=== PATIENT | male | born 1960 | race American Indian/Alaskan Native ===

== ENCOUNTER 2016-08-24 03:59 | Emergency (ER) | payer MEDICAID ==
[2016-08-24 04:43] LABS: Hematocrit 38.8 % (35.5-45.6); Hemoglobin 12.8 gm/dl (11.8-15.2); Mean Corpuscular HGB Conc 33 % (32-34); Mean Corpuscular Hemoglobin 30 pg (28-32); Mean Corpuscular Volume 89 fl (84-94); Platelet Count 395 K/mm3 (140-440); Red Blood Count 4.34 M/mm3 (3.65-5.03); Red Cell Distribution Width 14.3 % (13.2-15.2); White Blood Count 15.5 K/mm3 (4.5-11.0)
[2016-08-24 04:59] LABS: Alanine Aminotransferase 7 units/L (7-56); Albumin 4.3 g/dL (3.9-5); Albumin/Globulin Ratio 1.2 %; Alkaline Phosphatase 75 units/L (35-129); BUN/Creatinine Ratio 14.54; Bilirubin,Total 0.3 mg/dL (0.1-1.2); Blood Urea Nitrogen 16 mg/dL (9-20); Calcium 9.2 mg/dL (8.4-10.2); Carbon Dioxide 24 mmol/L (22-30); Chloride 102.2 mmol/L (98-107); Glucose 141 mg/dL (75-100); Lipase 19 units/L (13-60); Potassium 4.2 mmol/L (3.6-5.0); Sodium 142 mmol/L (137-145)
[2016-08-24 05:45] LABS: Anion Gap 20 mmol/L
[2016-08-24 06:35] LABS: Basophils % (Manual) 0 % (0.0-1.8); Blastocytes % (Manual) 0 %; Eosinophils % (Manual) 0 % (0.0-4.3)
[2016-08-24 06:36] LABS: Anisocytosis 1+; Diff Status Complete; Stomatocytes 1+
--- NOTE | 2016-08-24 08:42 | Emergency Department Report ---
HPI - General Chief Complaint: Abdominal Pain Time Seen by Provider: 08/24/16 08:28 - HPI HPI: This is a 55-year-old Afro-[place] male who presents to the emergency department with complaint of some lower abdominal pain and distention, in the suprapubic region, since yesterday. The patient had a Andrew catheter placed by his urologist, Dr. Simmons, about 1 month ago. He has an appointment this coming Thursday to get it removed and they are currently still doing evaluation as to why the patient had urinary retention. However since yesterday the patient has not been producing any urine in his leg bag. He denies any fever, back pain, nausea, vomiting. He has not taken anything for symptoms prior to presentation. His primary care doctor is Dr. Gonzalo Wilson. ED Past Medical Hx - Past Medical History Previous Medical History?: Yes Hx CVA: Yes (2009) - Surgical History Past Surgical History?: No - Social History Smoking Status: Former Smoker Substance Use Type: Non Opiate Pain, Prescribed - Medications Home Medications: Home Medications Medication Instructions Recorded Confirmed Last Taken Type Ciprofloxacin HCl [Ciprofloxacin 500 mg PO BID #14 tablet 08/24/16 Unknown Rx TAB] ED Review of Systems ROS: Stated complaint: STOMACH PAIN Other details as noted in HPI Comment: All other systems reviewed and negative Constitutional: denies: chills, fever Eyes: denies: eye pain, eye discharge, vision change ENT: denies: ear pain, throat pain Respiratory: denies: cough, shortness of breath, wheezing Cardiovascular: denies: chest pain, palpitations Gastrointestinal: abdominal pain. denies: nausea, vomiting Genitourinary: other (urinary retention). denies: discharge Musculoskeletal: denies: back pain, joint swelling, arthralgia Skin: denies: rash, lesions Neurological: denies: headache, weakness, paresthesias Physical Exam - Physical Exam Vital Signs: Vital Signs 08/24/16 04:11 Temperature 98.9 F Pulse Rate 78 Respiratory 18 Rate Blood Pressure 167/109 Blood Pressure 167/109 [Left] O2 Sat by Pulse 97 Oximetry Physical Exam: GENERAL: The patient is well-developed well-nourished. HEENT: Normocephalic. Atraumatic. Extraocular motions are intact. Patient has moist mucous membranes. Pupils equal reactive to light bilateral. NECK: Supple. Trachea is midline. CHEST/LUNGS: Clear to auscultation. There is no respiratory distress noted. HEART/CARDIOVASCULAR: Regular. There is no tachycardia. There is no gallop rub or murmur. ABDOMEN: Abdomen is soft. There is some tenderness to palpation to the lower portion of the abdomen in the suprapubic region which also has some moderate distention and is firm. No guarding or rebound tenderness. No peritoneal signs. Patient has normal bowel sounds. SKIN: Warm and dry. NEURO: The patient is awake, alert, and oriented. The patient is cooperative. The patient has no focal neurologic deficits. The patient has normal speech. MUSCULOSKELETAL: There is no tenderness or deformity. There is no limitation range of motion. There is no evidence of acute injury. ED Course Vital Signs 08/24/16 04:11 Temperature 98.9 F Pulse Rate 78 Respiratory 18 Rate Blood Pressure 167/109 Blood Pressure 167/109 [Left] O2 Sat by Pulse 97 Oximetry ED Medical Decision Making - Lab Data Result diagrams: 08/24/16 04:29 08/24/16 04:29 - Medical Decision Making 55-year-old male presents with abdominal pain and he has not seen any urine being produced within the Andrew catheter that he has. There is suprapubic pain and distention that is consistent with urinary retention. Attempted to flush the Andrew catheter but was unsuccessful. It was then replaced and the patient has put out close to 1 L of infected appearing urine. Urinalysis was sent and came back showing urinary tract infection. Patient already has an appointment coming up next week with his urologist. He'll be placed on a 1 week course of Cipro. No fever, nausea, vomiting. He has some hypertension but otherwise his vital signs are stable. Patient will return with any worsening of his symptoms or any acute distress. - Differential Diagnosis UTI, clogged Andrew, colitis, bowel obstruction Critical Care Time: No Critical care attestation.: If time is entered above; I have spent that time in minutes in the direct care of this critically ill patient, excluding procedure time. ED Disposition Clinical Impression: Obstructed Andrew catheter Qualifiers: Encounter type: initial encounter Qualified Code(s): T83.091A - Other mechanical complication of indwelling urethral catheter, initial encounter Urinary tract infection Qualifiers: Urinary tract infection type: acute cystitis Hematuria presence: without hematuria Qualified Code(s): N30.00 - Acute cystitis without hematuria Disposition: DISCHARGED TO HOME OR SELFCARE Is pt being admited?: No Does the pt Need Aspirin: No Condition: Stable Instructions: Andrew Catheter Placement and Care (ED), Urinary Tract Infection in Men (ED) Additional Instructions: Please follow-up with Dr. Simmons as previously scheduled. Take the antibiotics as prescribed. Return to the emergency department with any worsening of your symptoms or any acute distress. Prescriptions: Ciprofloxacin HCl [Ciprofloxacin TAB] 500 mg PO BID #14 tablet Referrals: GONZALO WILSON MD [Primary Care Provider] - 3-5 Days DENYS SIMMONS MD [Staff Physician] - 3-5 Days Time of Disposition: 10:09
[2016-08-24] MEDS ORDERED: NACL 0.9% IR ONE (08:45)
[2016-08-24 09:55] LABS: Bilirubin,Urine Negative (Negative); Blood,Urine Trace (Negative); Ketones,Urine Negative (Negative)
[2016-08-24 09:56] LABS: Leukocyte Esterase,Urine Large (Negative); Nitrite,Urine Negative (Negative); Protein,Urine >2000 mg dL mg/dL (Negative); Urobilinogen,Urine 0.2 mg/dL (<2.0)
[2016-08-24 11:25] VITALS: BP 114/76
== END 2016-08-24 11:25 | disposition home or self-care (01) ==
LOC: ED 03:59
DX: T83.091A Other mechanical complication of indwelling urethral catheter, initial encounter (principal); N30.00 Acute cystitis without hematuria; Z86.73 Personal history of transient ischemic attack (TIA), and cerebral infarction without residual deficits; Z87.891 Personal history of nicotine dependence; Y84.6 Urinary catheterization as the cause of abnormal reaction of the patient, or of later complication, without mention of misadventure at the time of the procedure
CPT/HCPCS: 36415; 51702; 80053; 81001; 83690; 85007; 85025

== ENCOUNTER 2017-07-29 05:48 | Day surgery (SDC) | payer MEDICAID ==
[~2017-07-29 05:48] MED LIST: ANCEF/STERILE WATER 2 GM/20 ML IV NR
[2017-07-29] MEDS ORDERED: NACL BACTERIOSTATIC INFILTRATI ONE (06:47)
[2017-07-29] MEDS ORDERED: PEPCID PO NR (07:00)
[2017-07-29] MEDS ORDERED: NACL 0.9% 1000 ML 1,000 ML ONE (07:20)
[2017-07-29] MEDS ORDERED: SUBLIMAZE ONE (07:27)
[2017-07-29] MEDS ORDERED: DIPRIVAN 10 MG/ML IV ONE (07:27)
[2017-07-29] MEDS ORDERED: MORPHINE IV PRN (07:29)
[2017-07-29] MEDS ORDERED: XYLOCAINE MPF 2% ONE (07:29)
[2017-07-29] MEDS ORDERED: ZOFRAN IV PRN (07:29)
--- NOTE | 2017-07-29 07:29 | Anesthesia Day of Surgery ---
Anesthesia Day of Surgery - Day of Surgery Patient Examined: Yes Patient is NPO: Yes Beta Blockers: No Roby's Test: N/A
[2017-07-29] MEDS ORDERED: METHYLENE BLUE ONE (07:34)
[2017-07-29] MEDS ORDERED: TRIPLE ANTIBIOTIC TP ONE (07:34)
--- NOTE | 2017-07-29 07:37 | Anesthesia Consultation ---
Anesthesia Consult and Med Hx Date of service: 07/29/17 - Airway Anesthetic Teeth Evaluation: Poor (MISSING TOP TEETH), Chipped (BOTTOM MOLARS) ROM Head & Neck: Adequate Mental/Hyoid Distance: Adequate Mallampati Class: Class III Intubation Access Assessment: Possibly Difficult - Pulmonary Exam CTA: Yes - Cardiac Exam Cardiac Exam: RRR - Pre-Operative Health Status ASA Pre-Surgery Classification: ASA3 Proposed Anesthetic Plan: General - Pulmonary Hx Smoking: Yes (STOPPED 2015) Hx Sleep Apnea: No (AIDAN PRE SCREEN HIGH RISK.) - Cardiovascular System Hx Hypertension: Yes (NO MEDS ) - Central Nervous System CVA: Yes (5 YRS AGO, LEFT SIDED WEAKNESS) - Endocrine Hx Renal Disease: No (URINARY RETENTION) Hx Insulin Dependent Diabetes: No - Other Systems Hx Cancer: No Hx Obesity: No
[2017-07-29] MEDS ORDERED: NACL 0.9% 1000 ML 1,000 ML IV SCH (08:00)
[2017-07-29] MEDS ORDERED: ePHEDrine SULFATE ONE (08:14)
[2017-07-29] MEDS ORDERED: NEO SYNEPHRINE/NS Syringe(OR USE) IV ONE (08:17)
[2017-07-29] MEDS ORDERED: WATER FOR IRRIG STERILE IR ONE (08:26)
[2017-07-29] MEDS ORDERED: OMNIPAQUE 300 MG/50 ML (CATH LAB) IV ONE (08:30)
--- NOTE | 2017-07-29 08:49 | Short Stay Summary ---
Short Stay Documentation Date of service: 07/29/17 - History H&P: obtained from office - Allergies and Medications Current Medications: Allergies No Known Allergies Allergy (Verified 10/20/16 16:31) Home Medications Medication Instructions Recorded Confirmed Last Taken Type Aspirin [Lo-Dose Aspirin EC] 81 mg PO DAILY 07/23/17 07/29/17 07/20/17 09:00 History Clopidogrel Bisulfate [Plavix] 75 mg PO DAILY 07/23/17 07/29/17 07/20/17 09:00 History Lovastatin [Altoprev] 20 mg PO QPM 07/23/17 07/29/17 07/28/17 09:00 History Active Medications Cefazolin Sodium (Ancef/Sterile Water 2 Gm/20 Ml) 2 gm IV PREOP NR Stop: 07/29/17 15:00 Sodium Chloride (Nacl 0.9% 1000 Ml) 1,000 mls @ 75 mls/hr IV DIRECT KAROLINA Last Admin: 07/29/17 07:57 Dose: 75 mls/hr Morphine Sulfate (Morphine) 2 mg IV Q10MIN PRN PRN Reason: Pain, Moderate (4-6) Stop: 07/29/17 12:00 Ondansetron HCl (Zofran) 4 mg IV ONCE PRN PRN Reason: Nausea And Vomiting Stop: 07/29/17 10:00 - Brief post op/procedure progress note Date of procedure: 07/29/17 Pre-op diagnosis: urethral stricture, neurogenic bladder Post-op diagnosis: same Procedure: cysto, dviu, rpg, spt placement, cystogram Anesthesia: GETA Surgeon: DENYS PATEL Pathology: none Condition: stable - Hospital course Hospital course: natero & jocelyne on chart - Disposition Condition at discharge: Stable Disposition: DC-01 TO HOME OR SELFCARE Short Stay Discharge Plan Follow up with: CARMENCITA WILSON MD [Primary Care Provider] - 7 Days
--- NOTE | 2017-07-29 09:09 | Post Anesthesia Evaluation ---
- Post Anesthesia Evaluation Patient Participated: Yes Airway Patent: Yes Stable Respiratory Function: Yes Nausea/Vomiting: No Temp > 96.8F: Yes Pain Manageable: Yes Adequeate Hydration: Yes Anesthesia Complications: No Block Receding Appropriately: Not Applicable Patient on Ventilator: No
[2017-07-29] MEDS ORDERED: NORCO 5/325 ONE (09:14)
--- NOTE | 2017-07-29 09:15 | Operative Report ---
PREOPERATIVE DIAGNOSES: Urethral stricture, neurogenic bladder. POSTOPERATIVE DIAGNOSES: Urethral stricture, neurogenic bladder. PROCEDURE: Cystoscopy, direct vision internal urethrotomy, bilateral retrograde pyelograms, suprapubic catheter placement, cystogram. SURGEON: Neto Simmons MD ANESTHESIA: General. ESTIMATED BLOOD LOSS: Minimal. FLUIDS: Crystalloid. COMPLICATIONS: No complications. INDICATIONS: This patient is a 56-year-old gentleman referred by Dr. Gonzalo Rosado for evaluation of urinary incontinence. He had a cerebrovascular accident in 2007, had some urinary incontinence. Cystoscopy revealed urethral stricture. It is unclear what was done previously. The patient states he had been seen by unknown urologist in [place], unable to get those records. Multiple attempts to dilate his tract resulted with urethral stricture, recurrent stricture. Due to the persistent nature, we elected for suprapubic catheter placement. Risks, benefits, and complications were explained. DESCRIPTION OF PROCEDURE: The patient was taken to the operative suite, placed in a supine position. After adequate general anesthesia, placed in a dorsal lithotomy position, prepped and draped in a sterile fashion. Urethroscopy was performed. Tight bulbar stricture could be appreciated. A 0.035 Glidewire was advanced followed by Mcnamara knife, 12 o'clock cut, allowed the scope to be advanced minimally obstructing prostate. Bilateral retrograde pyelograms were obtained with an 8 Haitian Yamileth catheter and 8 mL of contrast. No filling defects or obstruction. His bladder, no tumors or stones were noted. Next, using curved Lowsley retractor, the tip could be palpated 1 cm above the pubic symphysis. Bovie was used to cut down on the Lowsley. An 18-Haitian te-moak tip catheter was tied to a silk and then to the Lowsley retractor, pulled out to the urethra. The stitch was cut. Cystoscope was used to follow it back into the bladder, where the balloon was inflated with 10 mL of sterile water. Cystogram confirmed adequate position. 2-0 silk in the skin and then the catheter secured on the abdomen. The patient tolerated the procedure well. Rectal exam was benign. He was extubated and taken to recovery room. He will go home on Cipro and [place]. JOB# [id number] [facility]/NTS
[2017-07-29] MEDS ORDERED: NORCO 5/325 PO PRN (09:30)
--- NOTE | 2017-07-29 09:47 | Fluoroscopy Report ---
CYSTOGRAM STATIC, ONE VIEW History: Urethral stricture. Findings: A single AP fluoroscopic image of the bladder was obtained by Dr. Simmons during cystogram. No filling defect or extravasation is identified. Impression: Normal AP view cystogram.
--- NOTE | 2017-07-29 09:47 | Fluoroscopy Report ---
RETROGRADE PYELOGRAM: History: Urethral stricture. 8 fluoroscopic images were captured by Dr. Simmons of urology during retrograde pyelogram. There is adequate filling of the ureters and intrarenal collecting systems with no filling defects or anatomic abnormalities identified. Impression: No abnormality identified.
[2017-07-29 10:20] VITALS: BP 118/98
== END 2017-07-29 10:39 | disposition home or self-care (01) ==
LOC: OR 05:48
PROVIDERS: ATTEND Urology
DX: N35.9 Urethral stricture, unspecified (principal); N31.9 Neuromuscular dysfunction of bladder, unspecified; I69.954 Hemiplegia and hemiparesis following unspecified cerebrovascular disease affecting left non-dominant side; I10 Essential (primary) hypertension; Z79.82 Long term (current) use of aspirin; Z87.891 Personal history of nicotine dependence
CPT/HCPCS: 51040; 74420; 74430; A4217; C1758; C1769; J0690; J2370; J2704; J3010; J7030; Q9967; Q9968; A6250

== ENCOUNTER 2017-12-17 13:56 | Emergency (ER) | payer MEDICAID ==
[2017-12-17 15:19] LABS: Basophils # (Auto) 0.1 K/mm3 (0.0-0.1); Basophils % (Auto) 0.8 % (0.0-1.8); Eosinophils # (Auto) 0.1 K/mm3 (0.0-0.4); Eosinophils % (Auto) 0.6 % (0.0-4.3); Hemoglobin 12.1 gm/dl (11.8-15.2); Lymphocytes # (Auto) 1.1 K/mm3 (1.2-5.4); Lymphocytes % (Auto) 8.9 % (13.4-35.0); Mean Corpuscular HGB Conc 32 % (32-34); Mean Corpuscular Hemoglobin 28 pg (28-32); Mean Corpuscular Volume 89 fl (84-94); Monocytes # (Auto) 0.6 K/mm3 (0.0-0.8); Monocytes % (Auto) 5.2 % (0.0-7.3); Platelet Count 470 K/mm3 (140-440); Red Blood Count 4.27 M/mm3 (3.65-5.03); Red Cell Distribution Width 14.9 % (13.2-15.2)
[2017-12-17 15:27] LABS: INR 0.93 (0.87-1.13)
[2017-12-17 15:28] LABS: Partial Thromboplastin Time 37.2 Sec. (24.2-36.6)
[2017-12-17 15:45] LABS: Alanine Aminotransferase 7 units/L (7-56); Albumin 4.3 g/dL (3.9-5); BUN/Creatinine Ratio 9; Blood Urea Nitrogen 6 mg/dL (9-20); Calcium 9.5 mg/dL (8.4-10.2); Hemolysis Index 9
[2017-12-17] MEDS ORDERED: NACL 0.9% 1000 ML IV ONE (16:42)
--- NOTE | 2017-12-17 16:47 | Emergency Department Report ---
Blank Doc - Documentation Documentation: Patient is 56 years old male history of CVA with chronic indwelling catheter in. Patient brought to the ER with his father complaining of generalized weakness, unable to keep anything down, cough. On reviewing patient vital signs patient is tachycardic. "Sepsis code initiated. IV fluids and antibiotic started. Patient will need to be in our main ED.
[2017-12-17] MEDS ORDERED: LIDOCAINE VISCOUS 2% PO ONE (17:27)
--- NOTE | 2017-12-17 17:32 | Emergency Department Report ---
HPI - General Chief Complaint: Weakness Time Seen by Provider: 12/17/17 16:25 - HPI HPI: Room 19 The patient is a 56-year-old male presenting with a chief complaint of cough. The patient states the past 2-3 weeks he's had a cough productive of yellow sputum. 2 weeks ago he went to see his primary physician and was given cough medication, Mucinex "a shot and pills." The patient could not recall if antibiotics were administered. The patient states he has been unable to even has 2-3 days secondary to vomiting up mucus. Patient denies any history of fever, rhinorrhea. Patient complains of a sore throat from his coughing. Location: Lungs Duration: Approximately 3 weeks Quality: Cough Severity: Moderate Modifying factors: [see above] Context: [see above] Mode of transportation: [not driving] ED Past Medical Hx - Past Medical History Hx Hypertension: Yes (NO MEDS ) Hx CVA: Yes (2009) Hx Renal Disease: No (URINARY RETENTION) - Surgical History Past Surgical History?: No - Family History Family history: no significant - Social History Smoking Status: Former Smoker (none 2 years) Substance Use Type: None - Medications Home Medications: Home Medications Medication Instructions Recorded Confirmed Last Taken Type Aspirin [Lo-Dose Aspirin EC] 81 mg PO DAILY 07/23/17 07/29/17 07/20/17 09:00 History Clopidogrel Bisulfate [Plavix] 75 mg PO DAILY 07/23/17 07/29/17 07/20/17 09:00 History Lovastatin [Altoprev] 20 mg PO QPM 07/23/17 07/29/17 07/28/17 09:00 History Amoxicillin/K Clav Tab [Augmentin 1 each PO Q12HR #20 tablet 12/17/17 Unknown Rx 500 MG TAB] Ondansetron [Zofran ODT TAB] 8 mg PO Q8HR #20 tab.rapdis 12/17/17 Unknown Rx ED Review of Systems ROS: Stated complaint: POSS PNEUMONIA/FLU Other details as noted in HPI Constitutional: denies: fever ENT: throat pain (from cough per patient), other (no rhinorrhea) Respiratory: cough Gastrointestinal: vomiting Physical Exam - Physical Exam Vital Signs: Vital Signs 12/17/17 12/17/17 14:32 17:04 Temperature 98.6 F Pulse Rate 115 H Respiratory 18 19 Rate Blood Pressure 114/74 O2 Sat by Pulse 97 98 Oximetry Physical Exam: GENERAL: The patient is well-developed well-nourished male sitting on stretcher not appearing to be in acute distress. [] HEENT: Normocephalic. Atraumatic. Extraocular motions are intact. Patient has moist mucous membranes. Region of soft palate superior to the uvula is erythematous. Patient will not allow full evaluation of oropharynx secondary to gag reflex NECK: Supple. Trachea midline CHEST/LUNGS: Diffuse rhonchi. Decreased breath sounds left base when compared to the right. There is no respiratory distress noted. HEART/CARDIOVASCULAR: Regular. There is no tachycardia. There is no gallop rub or murmur. ABDOMEN: Abdomen is soft, nontender. Patient has normal bowel sounds. There is no abdominal distention. SKIN: There is no rash. There is no diaphoresis. NEURO: The patient is awake, alert, and oriented. The patient is cooperative. The patient has normal speech. Left-sided weakness from previous CVA MUSCULOSKELETAL: There is no evidence of acute injury. ED Course Vital Signs 12/17/17 12/17/17 14:32 17:04 Temperature 98.6 F Pulse Rate 115 H Respiratory 18 19 Rate Blood Pressure 114/74 O2 Sat by Pulse 97 98 Oximetry - Reevaluation(s) Reevaluation #1: 12/17/17 20:31 Patient tolerating po ED Medical Decision Making - Lab Data Result diagrams: 12/17/17 14:58 12/17/17 14:58 Laboratory Tests 12/17/17 12/17/17 12/17/17 14:58 14:58 14:58 WBC 12.3 H RBC 4.27 Hgb 12.1 Hct 38.0 MCV 89 MCH 28 MCHC 32 RDW 14.9 Plt Count 470 H Lymph % (Auto) 8.9 L Daggett % (Auto) 5.2 Eos % (Auto) 0.6 Baso % (Auto) 0.8 Lymph # 1.1 L Daggett # 0.6 Eos # 0.1 Baso # 0.1 Seg Neutrophils % 84.5 H Seg Neutrophils # 10.4 H PT 12.9 INR 0.93 APTT 37.2 H Sodium 137 Potassium 4.2 Chloride 96.3 L Carbon Dioxide 25 Anion Gap 20 BUN 6 L Creatinine 0.7 L Estimated GFR > 60 BUN/Creatinine Ratio 9 Glucose 82 Calcium 9.5 Total Bilirubin 0.50 AST 20 ALT 7 Alkaline Phosphatase 110 Total Protein 8.2 Albumin 4.3 Albumin/Globulin Ratio 1.1 Urine Color Urine Turbidity Urine pH Ur Specific Pearcy Urine Protein Urine Glucose (UA) Urine Ketones Urine Blood Urine Nitrite Urine Bilirubin Urine Urobilinogen Ur Leukocyte Esterase Urine WBC (Auto) Urine RBC (Auto) Urine Mucus Urine Yeast (Budding) 12/17/17 18:19 WBC RBC Hgb Hct MCV MCH MCHC RDW Plt Count Lymph % (Auto) Daggett % (Auto) Eos % (Auto) Baso % (Auto) Lymph # Daggett # Eos # Baso # Seg Neutrophils % Seg Neutrophils # PT INR APTT Sodium Potassium Chloride Carbon Dioxide Anion Gap BUN Creatinine Estimated GFR BUN/Creatinine Ratio Glucose Calcium Total Bilirubin AST ALT Alkaline Phosphatase Total Protein Albumin Albumin/Globulin Ratio Urine Color Yellow Urine Turbidity Hazy Urine pH 5.0 Ur Specific Pearcy 1.014 Urine Protein <15 mg/dl Urine Glucose (UA) Neg Urine Ketones 80 Urine Blood Mod Urine Nitrite Neg Urine Bilirubin Neg Urine Urobilinogen < 2.0 Ur Leukocyte Esterase Lg Urine WBC (Auto) 151.0 H Urine RBC (Auto) 15.0 Urine Mucus Few Urine Yeast (Budding) 3+ - Radiology Data Radiology results: image reviewed (chest x-ray) interpreted by me: Chest x-ray-no definite focal infiltrates, no pneumothorax - Medical Decision Making The significance of pulmonary nodules was discussed with the patient and patient 's son. They were advised to follow-up with light out examiner and I stated that I would give them a referral - Differential Diagnosis pneumonia, dehydration, pharyngitis Critical care attestation.: If time is entered above; I have spent that time in minutes in the direct care of this critically ill patient, excluding procedure time. ED Disposition Clinical Impression: Pharyngitis, acute, UTI (urinary tract infection), Bronchitis, Pulmonary nodules Disposition: DC-01 TO HOME OR SELFCARE Is pt being admited?: No Does the pt Need Aspirin: No Condition: Stable Instructions: Chronic Bronchitis (ED) Additional Instructions: Return to the emergency department immediately should you develop worsening symptoms, fever, inability to tolerate food or liquid or any other concerns. Prescriptions: Amoxicillin/K Clav Tab [Augmentin 500 MG TAB] 1 each PO Q12HR #20 tablet Ondansetron [Zofran ODT TAB] 8 mg PO Q8HR #20 tab.rapdis Referrals: PRIMARY CARE, [Primary Care Provider] - NICOLE RAMON MD [Staff Physician] - 3-5 Days (Dr. Stokes is a light out examiner. Please follow up with her for further evaluation of your pulmonary nodules) Time of Disposition: 20:38
[2017-12-17] MEDS ORDERED: ZOFRAN IV ONE (17:33)
[2017-12-17 17:51] VITALS: BP 140/84
[2017-12-17] MEDS ORDERED: ZOSYN/NS 3.375GM/50ML 3.375 GM/50 ML BAG IV SCH (18:00)
[2017-12-17 19:01] LABS: Bilirubin,Urine NEG (Negative); Blood,Urine MOD (Negative); Color,Urine Yellow (Yellow); Mucus,Urine FEW /HPF; Protein,Urine <15 mg/dL mg/dL (Negative); Urobilinogen,Urine < 2.0 mg/dL (<2.0)
[2017-12-17] MEDS ORDERED: ROCEPHIN/NS 1 GM/50 ML 1 GM/50 ML BAG IV ONE (20:31)
[2017-12-17] MEDS ORDERED: cefTRIAXone 1 GM in NACL 0.9% 20 ML IV ONE (21:00)
--- NOTE | 2017-12-21 14:17 | XRay Report ---
FINAL REPORT EXAM: XR CHEST 1V AP HISTORY: sepsis TECHNIQUE: upright single view chest PRIORS: None. FINDINGS: Cardiac and mediastinal contours are unremarkable. No focal pulmonary infiltrate is identified. No pleural fluid collection seen. Pulmonary vasculature is unremarkable. Calcified mediastinal lymph nodes are noted. Multiple healed left rib fractures noted. IMPRESSION: No acute abnormality identified in the chest
--- NOTE | 2017-12-21 14:18 | Cat Scan Report ---
FINAL REPORT PROCEDURE: CT CHEST WO CON TECHNIQUE: Computerized axial tomography of the chest was performed without contrast material. This study is performed without intravenous contrast and the sensitivity for pathology, including neoplasms, adenopathy, abscess, pulmonary embolism and aortic dissection, is reduced. HISTORY: productive cough COMPARISON: No prior studies are available for comparison. TECHNICAL QUALITY: Satisfactory. FINDINGS: Heart and pericardium: Normal. Thoracic aorta: Normal. Pulmonary vasculature: Normal caliber. Lymph nodes: Calcified hilar lymph nodes are present. Lungs: There are COPD changes. There are several bilateral noncalcified pulmonary nodules, largest in the left lower lobe, measuring up to 13 millimeters. No airspace consolidation is seen. Pleural space: No effusion, thickening, or pneumothorax. Musculoskeletal structures: Multilevel thoracic spine degenerative disc changes. Upper abdominal structures: Cholelithiasis. IMPRESSION: Bilateral pulmonary nodules, with large nodules in the left lower lobe, measuring up to 13 millimeters. Cannot exclude malignancy. Recommend further evaluation if not already performed Cholelithiasis
== END 2017-12-17 21:09 | disposition home or self-care (01) ==
LOC: ED 13:56
DX: J02.9 Acute pharyngitis, unspecified (principal); J40 Bronchitis, not specified as acute or chronic; N39.0 Urinary tract infection, site not specified; R91.1 Solitary pulmonary nodule; I10 Essential (primary) hypertension; Z86.73 Personal history of transient ischemic attack (TIA), and cerebral infarction without residual deficits; Z87.891 Personal history of nicotine dependence
CPT/HCPCS: 36415; 71045; 71250; 80053; 81001; 82140; 85025; 85610; 85730; 87040; 96361; 96365; 96375; 99285; J2405; J2543; J7030; J0696

== ENCOUNTER 2017-12-18 14:47 | Outpatient (CLI) | payer MEDICAID ==
--- NOTE | 2017-12-21 14:24 | Cat Scan Report ---
FINAL REPORT PROCEDURE: CT ABDOMEN PELVIS WO CON TECHNIQUE: Computerized axial tomography of the abdomen and pelvis was performed without intravenous contrast. This study is performed without intravascular contrast material and its sensitivity for abdominal and pelvic pathology, including neoplasms, inflammation, abscess, free fluid, thrombosis, arterial dissection and infarction, is reduced compared with a contrast enhanced study. HISTORY: HEMATURIA,GROSS COMPARISON: No prior studies are available for comparison. FINDINGS: Lower Lung tubbs: There is a 15 millimeter noncalcified pleural-based nodule in the left lower lobe posteriorly image 2 series 2. This is noncalcified. Second pulmonary nodules also seen in the left lower lobe anterior laterally image 13 series 2 measuring 6.9 millimeters. This is also noncalcified. Coarsened interstitial markings are seen in the right lower lobe with a small amount of patchy alveolar density present posteriorly inferiorly. Some of this may represent fibrosis. I cannot exclude an acute infiltrate. No dense consolidation or effusion is seen. Upper Abdomen: Multiple calcified gallstones are seen lying dependently in the gallbladder indicating cholelithiasis. The gallbladder is otherwise unremarkable. The liver showed no focal abnormality. The adrenal glands and the pancreas as well as the spleen are unremarkable. Kidneys, Ureters and Urinary bladder: Suprapubic catheter in place. Urinary bladder is empty otherwise. Kidneys and ureter show no abnormalities.No renal calculi masses or hydronephrosis are visualized. No ureteral calculi are seen. Calcifications are seen in the lower pelvis which appear to represent phleboliths. Retroperitoneum: Atherosclerotic changes seen in the abdominal aorta and iliac arteries. No aneurysm is seen. Nonspecific subcentimeter lymph nodes are seen in the retroperitoneum. No pathologically enlarged lymph nodes are identified. Bowel: No focal bowel abnormalities are seen. No evidence of bowel obstruction ascites or free intraperitoneal gas. The appendix is not visualized. Reproductive organs: Prostate gland is not appear to be enlarged. Other: Advanced degenerative disc changes are seen in the lower lumbar spine. There is also advanced facet arthritis. No acute bony abnormalities are seen. IMPRESSION: Noncalcified pulmonary nodules left lower lobe. I cannot exclude malignancy, primary and/or metastatic disease. Increased markings right lower lobe as described some of this may represent fibrosis although I cannot exclude an interstitial infiltrate and small patchy consolidation in the right lower lobe. Clinical correlation is recommended. Suprapubic catheter in place. Kidneys ureters and urinary bladder otherwise unremarkable. Cholelithiasis. Degenerative changes lumbar spine as described.
== END 2017-12-18 14:48 | disposition home or self-care (01) ==
LOC: CT 14:47
PROVIDERS: ATTEND Urology
DX: K80.20 Calculus of gallbladder without cholecystitis without obstruction (principal); R31.0 Gross hematuria; R91.8 Other nonspecific abnormal finding of lung field; I70.0 Atherosclerosis of aorta; M47.896 Other spondylosis, lumbar region; E78.00 Pure hypercholesterolemia, unspecified; G47.30 Sleep apnea, unspecified; F32.9 Major depressive disorder, single episode, unspecified; Z87.891 Personal history of nicotine dependence
CPT/HCPCS: 74176

== ENCOUNTER 2017-12-22 09:56 | Inpatient (IN) | payer MEDICAID ==
[2017-12-22] MEDS ORDERED: NACL 0.9% 1000 ML 1,000 ML IV ONE (11:11)
[2017-12-22 11:47] LABS: Basophils # (Auto) 0.1 K/mm3 (0.0-0.1); Basophils % (Auto) 0.8 % (0.0-1.8); Eosinophils # (Auto) 0.2 K/mm3 (0.0-0.4); Eosinophils % (Auto) 1.9 % (0.0-4.3); Hematocrit 39.3 % (35.5-45.6); Hemoglobin 12.7 gm/dl (11.8-15.2); Lymphocytes # (Auto) 1.2 K/mm3 (1.2-5.4); Lymphocytes % (Auto) 14.6 % (13.4-35.0); Mean Corpuscular HGB Conc 32 % (32-34); Mean Corpuscular Hemoglobin 28 pg (28-32); Mean Corpuscular Volume 88 fl (84-94); Monocytes # (Auto) 0.5 K/mm3 (0.0-0.8); Monocytes % (Auto) 6.1 % (0.0-7.3); Platelet Count 508 K/mm3 (140-440); Red Blood Count 4.48 M/mm3 (3.65-5.03); Red Cell Distribution Width 15.5 % (13.2-15.2)
[2017-12-22 12:00] LABS: INR 0.9 (0.87-1.13)
[2017-12-22 12:01] LABS: Partial Thromboplastin Time 39.1 Sec. (24.2-36.6)
[2017-12-22 12:18] LABS: Alanine Aminotransferase 8 units/L (7-56); BUN/Creatinine Ratio 7; Blood Urea Nitrogen 5 mg/dL (9-20); Calcium 9.5 mg/dL (8.4-10.2); Hemolysis Index 5; Lipase 22 units/L (13-60)
--- NOTE | 2017-12-22 12:23 | XRay Report ---
ROUTINE CHEST, TWO VIEWS: HISTORY: Coughing up blood. Mild emphysematous changes are suspected. There are 2 nodules in the left upper lobe measuring 0.9 cm and 1.5 cm. No evidence for infiltrate, pleural effusion or pneumothorax. Chronic granulomatous findings are again noted. Normal heart size and pulmonary vascularity. The bony structures are grossly intact. No significant change is demonstrated since 12/17/17. IMPRESSION: Emphysematous changes. Left lung pulmonary nodules.
--- NOTE | 2017-12-22 13:24 | Emergency Department Report ---
Chief Complaint: Dyspnea/Respdistress Stated Complaint: VOMITTING BLOOD Time Seen by Provider: 12/22/17 13:15 - HPI History of Present Illness: 57-year-old male presents to the emergency department with complaint of continuation of coughing, shortness of breath that he was seen here for before. He was diagnosed with bronchitis at that time. It appears that he had a CT scan of the chest that showed pulmonary nodules. The family member, who is bedside, says that last night there was some blood in the sputum that he was coughing but that has not showed back up today. Also the patient has not eaten anything in a week as the coughing gets to the point where he has coughing fits and then vomits up the food he has eaten. No fever. He is a former smoker. - ROS Review of Systems: Positive for cough, hemoptysis, vomiting, decreased appetite Negative for chest pain, fever, nausea - Exam Vital Signs: Vital Signs 12/22/17 12/22/17 11:06 13:11 Temperature 98.5 F 97.6 F Pulse Rate 79 56 L Respiratory 20 18 Rate Blood Pressure 116/81 Blood Pressure 123/80 [Left] O2 Sat by Pulse 98 95 Oximetry Physical Exam: Patient does not appear in any acute distress. There is some rhonchorous sounds heard in the lung tubbs. There is audible nasal and head congestion. MSE screening note: Focused history and physical exam performed. Due to findings the following was ordered: Patient's labs thus far have been unremarkable. Chest x-ray shows the pulmonary nodules. However given the patient's lack of improvement from his previous visit for similar complaints, as well as the new complaint of some hemoptysis last night, I believe the patient should be seen by one of the main side ED physicians. ED Medical Decision Making - Lab Data Result diagrams: 12/22/17 11:27 12/22/17 11:27 ED Disposition for MSE Condition: Stable Referrals: CARMENCITA WILSON MD [Primary Care Provider] - 3-5 Days
--- NOTE | 2017-12-22 13:52 | Emergency Department Report ---
HPI - General Chief Complaint: Dyspnea/Respdistress Time Seen by Provider: 12/22/17 13:15 - HPI HPI: Room 33 The patient is a 57-year-old male presenting with a chief complaint of cough and congestion and inability to tolerate food. The patient was seen by myself 12/17/2017 for chest congestion and productive cough. The patient was prescribed amoxicillin by myself and reportedly has been compliant. Family states the patient's congestion persists. Patient continues to have a productive cough which leads to posttussive emesis. Patient is unable to keep any food down since his last visit. This morning the patient exhibited hemoptysis. The patient was given referral to pulmonology for further evaluation of his pulmonary nodule seen on previous studies but has not had the opportunity to follow up yet. Patient currently denies any pain. Location: [See above] Duration: [See above] Quality: Painless Severity: 0/10 Modifying factors: [see above] Context: [see above] Mode of transportation: [not driving] ED Past Medical Hx - Past Medical History Previous Medical History?: Yes Hx Hypertension: Yes (NO MEDS ) Hx CVA: Yes (2009) Hx Renal Disease: No (URINARY RETENTION) Hx HIV: No Additional medical history: Indwelling canales cath - Surgical History Past Surgical History?: Yes Additional Surgical History: canales placed under surgery - Family History Family history: no significant - Social History Smoking Status: Former Smoker Substance Use Type: Prescribed - Medications Home Medications: Home Medications Medication Instructions Recorded Confirmed Last Taken Type Aspirin [Lo-Dose Aspirin EC] 81 mg PO DAILY 07/23/17 12/22/17 07/20/17 09:00 History Clopidogrel Bisulfate [Plavix] 75 mg PO DAILY 07/23/17 12/22/17 07/20/17 09:00 History Lovastatin [Altoprev] 20 mg PO QPM 07/23/17 12/22/17 07/28/17 09:00 History Amoxicillin/K Clav Tab [Augmentin 1 each PO Q12HR #20 tablet 12/17/17 12/22/17 Unknown Rx 500 MG TAB] Ondansetron [Zofran ODT TAB] 8 mg PO Q8HR #20 tab.rapdis 12/17/17 12/22/17 Unknown Rx ED Review of Systems ROS: Stated complaint: VOMITTING BLOOD Other details as noted in HPI Constitutional: denies: fever ENT: throat pain Respiratory: cough, shortness of breath Gastrointestinal: vomiting, constipation. denies: abdominal pain Physical Exam - Physical Exam Vital Signs: Vital Signs 12/22/17 12/22/17 11:06 13:11 Temperature 98.5 F 97.6 F Pulse Rate 79 56 L Respiratory 20 18 Rate Blood Pressure 116/81 Blood Pressure 123/80 [Left] O2 Sat by Pulse 98 95 Oximetry Physical Exam: GENERAL: The patient is well-developed well-nourished male lying on stretcher not appear to be in acute distress. [] HEENT: Normocephalic. Atraumatic. Extraocular motions are intact. Patient has moist mucous membranes. Only able to visualize the soft palate again secondary to patient's gag reflex and tongue. Region above the uvula still erythematous with sharp demarcations NECK: Supple. Trachea midline CHEST/LUNGS: Clear to auscultation. There is no respiratory distress noted. HEART/CARDIOVASCULAR: Regular. There is no tachycardia. There is no gallop rub or murmur. ABDOMEN: Abdomen is soft, nontender. Patient has normal bowel sounds. There is no abdominal distention. SKIN: There is no rash. There is no edema. There is no diaphoresis. NEURO: The patient is awake, alert, and oriented. The patient is cooperative. The patient has residual left-sided weakness from previous CVA. The patient has normal speech MUSCULOSKELETAL: There is no evidence of acute injury. ED Course Vital Signs 12/22/17 12/22/17 11:06 13:11 Temperature 98.5 F 97.6 F Pulse Rate 79 56 L Respiratory 20 18 Rate Blood Pressure 116/81 Blood Pressure 123/80 [Left] O2 Sat by Pulse 98 95 Oximetry - EJ/Peripheral Line Neck L Time Out Performed: No Indications: nurses unable to establis Skin Cleansed in Sterile Fashion: Yes Size: 20 Dressing Placed: Tegaderm, tape Patient Tolerated Procedure: well, no complications Additional Comments: Left external jugular vein IV placed ED Medical Decision Making - Lab Data Result diagrams: 12/22/17 11:27 12/22/17 11:27 Laboratory Tests 12/22/17 12/22/17 12/22/17 11:22 11:27 11:27 WBC 8.3 RBC 4.48 Hgb 12.7 Hct 39.3 MCV 88 MCH 28 MCHC 32 RDW 15.5 H Plt Count 508 H Lymph % (Auto) 14.6 [place] % (Auto) 6.1 Eos % (Auto) 1.9 Baso % (Auto) 0.8 Lymph # 1.2 [place] # 0.5 Eos # 0.2 Baso # 0.1 Seg Neutrophils % 76.6 H Seg Neutrophils # 6.4 PT 12.6 INR 0.90 APTT 39.1 H Sodium Potassium Chloride Carbon Dioxide Anion Gap BUN Creatinine Estimated GFR BUN/Creatinine Ratio Glucose Calcium Total Bilirubin AST ALT Alkaline Phosphatase Total Protein Albumin Albumin/Globulin Ratio Lipase Blood Type O POSITIVE Antibody Screen Negative 12/22/17 11:27 WBC RBC Hgb Hct MCV MCH MCHC RDW Plt Count Lymph % (Auto) [place] % (Auto) Eos % (Auto) Baso % (Auto) Lymph # [place] # Eos # Baso # Seg Neutrophils % Seg Neutrophils # PT INR APTT Sodium 141 Potassium 3.7 Chloride 98.0 Carbon Dioxide 26 Anion Gap 21 BUN 5 L Creatinine 0.7 L Estimated GFR > 60 BUN/Creatinine Ratio 7 Glucose 78 Calcium 9.5 Total Bilirubin 0.40 AST 18 ALT 8 Alkaline Phosphatase 105 Total Protein 8.5 H Albumin 4.0 Albumin/Globulin Ratio 0.9 Lipase 22 Blood Type Antibody Screen - EKG Data -: EKG Interpreted by Me EKG shows normal: sinus rhythm Rate: normal - EKG Data When compared to previous EKG there are: previous EKG unavailable Interpretation: other (no ischemic changes seen) - Radiology Data Radiology results: report reviewed (CT chest), image reviewed (chest x-ray, CT chest) interpreted by me: Chest x-ray-no focal infiltrates, no pneumothorax. Pulmonary nodules visualized CT chest (read by radiologist)-no evidence for pulmonary embolism. Stable on calcified pulmonary nodule in the left lower lobe. Continued serial CT follow- up should be performed to confirm stability over 2 years. Bruising interstitial changes in the right lower lobe - Differential Diagnosis lung CA, PE, pneumonia Critical care attestation.: If time is entered above; I have spent that time in minutes in the direct care of this critically ill patient, excluding procedure time. ED Disposition Clinical Impression: Hemoptysis, Unable to eat, Pulmonary nodules Disposition: OP ADMIT IP TO THIS HOSP Is pt being admited?: Yes Does the pt Need Aspirin: No Condition: Fair Referrals: CARMENCITA WILSON MD [Primary Care Provider] - 3-5 Days Time of Disposition: 18:25 (hospitalist notified (Dr Ricketts))
--- NOTE | 2017-12-22 19:26 | Cat Scan Report ---
FINAL REPORT EXAM: CT ANGIO CHEST HISTORY: hemoptysis, pulmonary nodule TECHNIQUE: Enhanced CT of the chest at 1.25 mm axial intervals following a pulmonary embolism protocol. Coronal and sagittal imaging were also obtained. Coronal oblique MIP projections were obtained. Contrast: Intravenous contrast given PRIORS: CT chest 12/17/2017 FINDINGS: There is no evidence for pulmonary embolism in the main pulmonary artery, right and left pulmonary arteries or their major distributions. However, CT does not exclude distal pulmonary emboli. There are multiple well-defined rounded uncalcified soft tissue nodules in the left lower lobe. These are all stable. The largest is in the lung base measuring approximately 1.3 cm. There is a calcified fissural lymph node in the minor fissure on the right, stable. There is increasing interstitial markings throughout the right lower lobe. Otherwise, the lung parenchyma are expanded and clear with no evidence for parenchymal infiltrates, congestion, or pleural effusion. There is no evidence for mediastinal, hilar, or axillary adenopathy. Cardiovascular structures are within normal limits. No evidence for ventricular chamber enlargement is seen. Images through the lung bases include the upper abdomen which show no abnormalities of the visualized abdominal viscera. Bony structures demonstrate remote fractures involving the anterior lateral left 3rd through 7th ribs. IMPRESSION: 1. no evidence for pulmonary embolism. 2. stable uncalcified pulmonary nodules in the left lower lobe. Continued serial CT follow-up should be performed to confirm stability over 2 years. 3. Bruising interstitial changes in the right lower lobe.
[2017-12-22] MEDS ORDERED: MORPHINE IV PRN (20:44)
[2017-12-22] MEDS ORDERED: PERCOCET 5/325 PO PRN (20:44)
[2017-12-22] MEDS ORDERED: TYLENOL PO PRN (20:44)
[2017-12-22] MEDS ORDERED: SODIUM CHLORIDE FLUSH SYRINGE 10 ML IV PRN (20:44)
[2017-12-22] MEDS ORDERED: ZOFRAN IV PRN (20:44)
[2017-12-22] MEDS ORDERED: LEVAQUIN 750MG/150ML 750 MG/150 ML BAG IV ONE (21:57)
[2017-12-22] MEDS ORDERED: BABY ASPIRIN ONE (21:57)
[2017-12-22] MEDS ORDERED: PLAVIX ONE (21:57)
[2017-12-22] MEDS: PLAVIX PO SCH (22:20)
[2017-12-22] MEDS: HALFPRIN EC PO SCH (22:20)
[2017-12-22] MEDS: LEVAQUIN 750MG/150ML 750 MG/150 ML BAG IV SCH (22:45)
[2017-12-22] MEDS ORDERED: ZOFRAN ODT ONE (23:06)
[2017-12-22] MEDS ORDERED: HEPARIN ONE (23:06)
[2017-12-22] MEDS: HEPARIN SUB-Q SCH (23:14)
[2017-12-22] MEDS: SODIUM CHLORIDE FLUSH SYRINGE 10 ML IV SCH (23:15)
[2017-12-22] MEDS: ZOFRAN ODT PO SCH (23:15)
[2017-12-23] MEDS: D5NS 1,000 ML IV SCH ×2 (01:10→15:00)
--- NOTE | 2017-12-23 02:19 | Event Note ---
Date: 12/22/17 See dictated H/p in reports
--- NOTE | 2017-12-23 02:39 | History and Physical Report ---
CHIEF COMPLAINT: Cough and congestion for 1 week. HISTORY OF PRESENT ILLNESS: A 57-year-old comes in for cough and congestion of 1 week. The patient was seen on 12/17/2017 in the Emergency Room for cough, congestion, productive cough. He was prescribed Augmentin. Did not have much relief, comes today for severe cough and post-cough some blood in the sputum. No yrn blood or hemoptysis. The patient also had small pulmonary nodules. PAST MEDICAL HISTORY: Significant for hypertension, cerebrovascular accident, chronic kidney disease. Indwelling Andrew catheter. PAST SURGICAL HISTORY: Andrew placed ____ surgery. FAMILY HISTORY: No significant family history. SOCIAL HISTORY: Former smoker. CURRENT MEDICATIONS: Plavix 75 daily, lovastatin 20 daily, Augmentin and Zofran. REVIEW OF SYSTEMS: Significant for persistent cough and congestion. PHYSICAL EXAMINATION: GENERAL: A middle-aged male, cooperative during examination. VITAL SIGNS: Blood pressure 123/80, temperature 97.6, pulse is 79, respirations are 20. HEENT: Unremarkable. Posterior pharynx is congested and erythematous. NECK: Supple, no lymphadenopathy, no thyromegaly. LUNGS: Bilateral rhonchi present. CARDIOVASCULAR: S1, S2 heard. No gallop, no murmur, no rub. Apical impulse in left fifth intercostal space and midclavicular line. ABDOMEN: Soft and benign. No hepatosplenomegaly. No guarding, no rigidity. Hernial orifices are normal. EXTREMITIES: Good pedal pulses. No pedal edema. CENTRAL NERVOUS SYSTEM: Alert and oriented x 4, nonfocal exam. SKIN: Normal. LABORATORY DATA: Normal. CT of the chest shows left lower lobe pulmonary nodules. No evidence for pulmonary embolism. Some interstitial changes in the right lower lobe. ASSESSMENT AND PLAN: 1. Bilateral pneumonia. The patient initiated on IV antibiotics in the form of IV Levaquin. 2. Chronic obstructive pulmonary disease. The patient initiated on DuoNebs and low dose Solu-Medrol. 3. Hyperlipidemia. Continue pravastatin. 4. Pulmonary nodules. We will defer to Pulmonary consult regarding the pulmonary nodules. No hilar adenopathy. Sarcoidosis is a possibility. 5. DVT prophylaxis, heparin 5000 q.12h. JOB# [id number] VSM/NTS
[2017-12-23] MEDS: ZOFRAN ODT PO SCH ×2 (05:41→14:57)
[2017-12-23 07:10] LABS: Basophils % (Auto) 0.3 % (0.0-1.8); Hematocrit 35.5 % (35.5-45.6); Hemoglobin 11.9 gm/dl (11.8-15.2); Lymphocytes # (Auto) 0.4 K/mm3 (1.2-5.4); Lymphocytes % (Auto) 7.9 % (13.4-35.0); Mean Corpuscular HGB Conc 34 % (32-34); Mean Corpuscular Hemoglobin 29 pg (28-32); Mean Corpuscular Volume 87 fl (84-94); Monocytes # (Auto) 0.1 K/mm3 (0.0-0.8); Monocytes % (Auto) 1.8 % (0.0-7.3); Platelet Count 469 K/mm3 (140-440); Red Blood Count 4.09 M/mm3 (3.65-5.03)
[2017-12-23 07:39] LABS: Alanine Aminotransferase 5 units/L (7-56); Albumin 3.5 g/dL (3.9-5); BUN/Creatinine Ratio 10; Blood Urea Nitrogen 6 mg/dL (9-20); Calcium 8.7 mg/dL (8.4-10.2); Hemolysis Index 1
[2017-12-23] MEDS: DUONEB *Not for PRN Use IH SCH ×4 (07:39→20:25)
[2017-12-23] MEDS: HEPARIN SUB-Q SCH (10:11)
[2017-12-23] MEDS: HALFPRIN EC PO SCH (10:11)
[2017-12-23] MEDS: PLAVIX PO SCH (10:11)
[2017-12-23] MEDS: LEVAQUIN 750MG/150ML 750 MG/150 ML BAG IV SCH (10:11)
[2017-12-23] MEDS: SODIUM CHLORIDE FLUSH SYRINGE 10 ML IV SCH (10:12)
--- NOTE | 2017-12-23 14:04 | Consultation ---
History of Present Illness Consult date: 12/23/17 Requesting physician: PJ MOREL Reason for consult: abnormal CXR/CT, other (pulmonary nodule) History of present illness: PULMONARY/CCM CONSULT NOTE (Full dictation # [id number]) Please see dictated notes for full details Medications and Allergies Allergies Allergy/AdvReac Type Severity Reaction Status Date / Time No Known Allergies Allergy Verified 10/20/16 16:31 Home Medications Medication Instructions Recorded Confirmed Last Taken Type Aspirin [Lo-Dose Aspirin EC] 81 mg PO DAILY 07/23/17 12/22/17 07/20/17 09:00 History Clopidogrel Bisulfate [Plavix] 75 mg PO DAILY 07/23/17 12/22/17 07/20/17 09:00 History Lovastatin [Altoprev] 20 mg PO QPM 07/23/17 12/22/17 07/28/17 09:00 History Amoxicillin/K Clav Tab [Augmentin 1 each PO Q12HR #20 tablet 12/17/17 12/22/17 Unknown Rx 500 MG TAB] Ondansetron [Zofran ODT TAB] 8 mg PO Q8HR #20 tab.rapdis 12/17/17 12/22/17 Unknown Rx Active Meds: Active Medications Acetaminophen (Tylenol) 650 mg PO Q4H PRN PRN Reason: Pain MILD(1-3)/Fever >100.5/MINER Albuterol/Ipratropium (Duoneb *Not For Prn Use*) 1 ampul IH QIDRT [facility] Last Admin: 12/23/17 12:39 Dose: 1 ampul Aspirin (Halfprin Ec) 81 mg PO DAILY [facility] Last Admin: 12/23/17 10:11 Dose: 81 mg Clopidogrel Bisulfate (Plavix) 75 mg PO DAILY [facility] Last Admin: 12/23/17 10:11 Dose: 75 mg Heparin Sodium (Porcine) (Heparin) 5,000 unit SUB-Q Q12HR [facility] Last Admin: 12/23/17 10:11 Dose: 5,000 unit Dextrose/Sodium Chloride (D5ns) 1,000 mls @ 75 mls/hr IV DIRECT [place] Last Admin: 12/23/17 01:10 Dose: 75 mls/hr Levofloxacin/Dextrose (Levaquin 750mg/150ml) 750 mg in 150 mls @ 100 mls/hr IV Q24HR [facility]; Protocol Last Admin: 12/23/17 10:11 Dose: 100 mls/hr Methylprednisolone Sodium Succinate (Solu-Medrol) 40 mg IV Q8HR [facility] Last Admin: 12/23/17 05:41 Dose: 40 mg Morphine Sulfate (Morphine) 2 mg IV Q4H PRN PRN Reason: Pain, Moderate (4-6) Ondansetron HCl (Zofran) 4 mg IV Q8H PRN PRN Reason: Nausea And Vomiting Ondansetron HCl (Zofran Odt) 8 mg PO Q8HR [facility] Last Admin: 12/23/17 05:41 Dose: 8 mg Oxycodone/Acetaminophen (Percocet 5/325) 1 tab PO Q6H PRN PRN Reason: Pain, Moderate (4-6) Pravastatin Sodium (Pravachol) 20 mg PO QHS [facility] Sodium Chloride (Sodium Chloride Flush Syringe 10 Ml) 10 ml IV BID [facility] Last Admin: 12/23/17 10:12 Dose: 10 ml Sodium Chloride (Sodium Chloride Flush Syringe 10 Ml) 10 ml IV PRN PRN PRN Reason: LINE FLUSH Physical Examination Vital signs: Vital Signs Temp Pulse Resp BP Pulse Ox 98.5 F 79 20 116/81 98 12/22/17 11:06 12/22/17 11:06 12/22/17 11:06 12/22/17 11:06 12/22/17 11:06 Results - Laboratory Findings CBC and BMP: 01/03/18 08:47 01/03/18 08:47 PT/INR, D-dimer PT 12.6 Sec. (12.2-14.9) 12/22/17 11:27 INR 0.90 (0.87-1.13) 12/22/17 11:27 Abnormal lab findings: Abnormal Labs 12/22/17 12/22/17 12/22/17 11:27 11:27 11:27 RDW 15.5 H Plt Count 508 H Lymph % (Auto) Lymph # Seg Neutrophils % 76.6 H APTT 39.1 H BUN 5 L Creatinine 0.7 L Glucose ALT Total Protein 8.5 H Albumin 12/23/17 12/23/17 05:52 05:52 RDW Plt Count 469 H Lymph % (Auto) 7.9 L Lymph # 0.4 L Seg Neutrophils % 90.0 H APTT BUN 6 L Creatinine 0.6 L Glucose 113 H ALT 5 L Total Protein Albumin 3.5 L
--- NOTE | 2017-12-23 16:18 | XRay Report ---
FINAL REPORT EXAM: XR ABDOMEN 1V AP HISTORY: interactable nausea and vomitin image didnt cross over to pacs TECHNIQUE: Supine views of the abdomen PRIORS: None. FINDINGS: The bowel gas pattern is nonspecific. No free air is identified. Soft tissues have no evidence for mass shadows with there are calcified gallstones in the right upper quadrant likely in the gallbladder. The bony structures demonstrate degenerative changes throughout the spine. IMPRESSION: Nonspecific, nonobstructive bowel gas pattern with no acute process noted. Cholelithiasis.
--- NOTE | 2017-12-23 18:47 | Progress Note ---
Assessment and Plan Assessment and plan: The patient is a 57-year-old male with hx of previous stroke, right hemiparesis , HTN, CKD, indewelling canales catheter, presenting with a chief complaint of cough and congestion and inablity to keep food down with persistent nausea and vomiting. The patient was recently in the hospital 12/17/2017 for chest congestion and productive cough, was diagnosed with PNA and started on. Family states the patient's congestion persists. Patient continues to have a productive cough which leads to posttussive emesis. Patient is unable to keep any food down since his last visit. Interactable Nausea and vomiting Poor PO intake Recurrent persistent cough Bilateral penumonia Pulmonary Nodule COPD HTN Cholethasis Chronic Indwelling Canales Right Hemiplegia PLAN: supportive care continue abx h/h Stable FALL Precautions GI consult May need HIDA to ensure gallbladder not culprit Pulmonary consult dvt/gi Prophy History Interval history: Patient seen and examined, reports persistent nausea with vomiting and inability to keep food down. Also upper airway congestion with some shortness of breath. No new hematemsis or hemaoptysis since admission Hospitalist Physical - Physical exam Narrative exam: GENERAL: The patient is well-developed well-nourished male lying on stretcher not appear to be in acute distress. [] HEENT: Normocephalic. Atraumatic. Extraocular motions are intact. Continueous moist mucous membranes. NECK: Supple. Trachea midline CHEST/LUNGS: Clear to auscultation. There is no respiratory distress noted. HEART/CARDIOVASCULAR: Regular. There is no tachycardia. There is no gallop rub or murmur. ABDOMEN: Abdomen is soft, nontender. Patient has normal bowel sounds. There is no abdominal distention. SKIN: There is no rash. There is no edema. There is no diaphoresis. NEURO: The patient is awake, alert, and oriented. The patient is cooperative. The patient has residual left-sided weakness from previous CVA. The patient has normal speech but garbled MUSCULOSKELETAL: There is no evidence of acute injury. - Constitutional Vitals: Temp Pulse Resp BP Pulse Ox 98.6 F 99 H 18 112/75 98 12/23/17 14:54 12/23/17 14:54 12/23/17 14:54 12/23/17 14:54 12/23/17 14:54 Results - Labs CBC & Chem 7: 12/23/17 05:52 12/23/17 05:52 Labs: Laboratory Last Values WBC 4.8 K/mm3 (4.5-11.0) 12/23/17 05:52 RBC 4.09 M/mm3 (3.65-5.03) 12/23/17 05:52 Hgb 11.9 gm/dl (11.8-15.2) 12/23/17 05:52 Hct 35.5 % (35.5-45.6) 12/23/17 05:52 MCV 87 fl (84-94) 12/23/17 05:52 MCH 29 pg (28-32) 12/23/17 05:52 MCHC 34 % (32-34) 12/23/17 05:52 RDW 15.0 % (13.2-15.2) 12/23/17 05:52 Plt Count 469 K/mm3 (140-440) H 12/23/17 05:52 Lymph % (Auto) 7.9 % (13.4-35.0) L 12/23/17 05:52 [place] % (Auto) 1.8 % (0.0-7.3) 12/23/17 05:52 Eos % (Auto) 0.0 % (0.0-4.3) 12/23/17 05:52 Baso % (Auto) 0.3 % (0.0-1.8) 12/23/17 05:52 Lymph # 0.4 K/mm3 (1.2-5.4) L 12/23/17 05:52 [place] # 0.1 K/mm3 (0.0-0.8) 12/23/17 05:52 Eos # 0.0 K/mm3 (0.0-0.4) 12/23/17 05:52 Baso # 0.0 K/mm3 (0.0-0.1) 12/23/17 05:52 Seg Neutrophils % 90.0 % (40.0-70.0) H 12/23/17 05:52 Seg Neutrophils # 4.3 K/mm3 (1.8-7.7) 12/23/17 05:52 PT 12.6 Sec. (12.2-14.9) 12/22/17 11:27 INR 0.90 (0.87-1.13) 12/22/17 11:27 APTT 39.1 Sec. (24.2-36.6) H 12/22/17 11:27 Sodium 143 mmol/L (137-145) 12/23/17 05:52 Potassium 3.9 mmol/L (3.6-5.0) 12/23/17 05:52 Chloride 101.6 mmol/L (98-107) 12/23/17 05:52 Carbon Dioxide 25 mmol/L (22-30) 12/23/17 05:52 Anion Gap 20 mmol/L 12/23/17 05:52 BUN 6 mg/dL (9-20) L 12/23/17 05:52 Creatinine 0.6 mg/dL (0.8-1.5) L 12/23/17 05:52 Estimated GFR > 60 ml/min 12/23/17 05:52 BUN/Creatinine Ratio 10 % 12/23/17 05:52 Glucose 113 mg/dL (75-100) H 12/23/17 05:52 Hemoglobin A1c 5.6 % (4-6) 12/22/17 20:56 Calcium 8.7 mg/dL (8.4-10.2) 12/23/17 05:52 Total Bilirubin 0.30 mg/dL (0.1-1.2) 12/23/17 05:52 AST 14 units/L (5-40) 12/23/17 05:52 ALT 5 units/L (7-56) L 12/23/17 05:52 Alkaline Phosphatase 89 units/L (35-129) 12/23/17 05:52 Total Protein 7.2 g/dL (6.3-8.2) 12/23/17 05:52 Albumin 3.5 g/dL (3.9-5) L 12/23/17 05:52 Albumin/Globulin Ratio 0.9 % 12/23/17 05:52 Lipase 22 units/L (13-60) 12/22/17 11:27 Blood Type O POSITIVE 12/22/17 11:22 Antibody Screen Negative 12/22/17 11:22 - Imaging and Cardiology CT scan - abdomen: image reviewed (non obstructive parttern, cholelithasis)
[2017-12-24] MEDS: ZOFRAN ODT PO SCH ×4 (01:43→23:30)
[2017-12-24] MEDS: PRAVACHOL PO SCH ×2 (01:44→23:30)
[2017-12-24] MEDS: HEPARIN SUB-Q SCH ×4 (01:46→23:30)
[2017-12-24] MEDS: SODIUM CHLORIDE FLUSH SYRINGE 10 ML IV SCH ×3 (01:47→23:30)
--- NOTE | 2017-12-24 07:47 | Progress Note ---
Assessment and Plan Assessment and plan: The patient is a 57-year-old male with hx of previous stroke, right hemiparesis , HTN, CKD, indewelling canales catheter, presenting with a chief complaint of cough and congestion and inablity to keep food down with persistent nausea and vomiting. The patient was recently in the hospital 12/17/2017 for chest congestion and productive cough, was diagnosed with PNA and started on. Family states the patient's congestion persists. Patient continues to have a productive cough which leads to posttussive emesis. Patient is unable to keep any food down since his last visit. Interactable Nausea and vomiting Poor PO intake Recurrent persistent cough Bilateral penumonia Pulmonary Nodule COPD HTN Cholethasis Chronic Indwelling Canales Right Hemiplegia PLAN: supportive care GI input noted. Plavix held, speech therapy consulted. EGD later continue abx h/h Stable FALL Precautions May need HIDA to ensure gallbladder not culprit Pulmonary consult dvt/gi Prophy Discussed plan with patient and also brother who is patients guardian. History Interval history: Patient seen and examined, Still reports persistent nausea with vomiting and inability to keep food down. Also upper airway congestion with some shortness of breath. No new hematemsis or hemaoptysis since admission. Hospitalist Physical - Physical exam Narrative exam: GENERAL: The patient is well-developed well-nourished male lying on stretcher not appear to be in acute distress. HEENT: Normocephalic. Atraumatic. Extraocular motions are intact. Continueous moist mucous membranes. NECK: Supple. Trachea midline CHEST/LUNGS: Clear to auscultation. There is no respiratory distress noted. HEART/CARDIOVASCULAR: Regular. There is no tachycardia. There is no gallop rub or murmur. ABDOMEN: Abdomen is soft, nontender. Patient has normal bowel sounds. There is no abdominal distention. SKIN: There is no rash. There is no edema. There is no diaphoresis. NEURO: The patient is awake, alert, and oriented. The patient is cooperative. The patient has residual left-sided weakness from previous CVA. The patient has normal speech but garbled MUSCULOSKELETAL: There is no evidence of acute injury. - Constitutional Vitals: Temp Pulse Resp BP Pulse Ox 98.3 F 71 16 112/79 99 12/24/17 07:17 12/24/17 07:17 12/24/17 07:17 12/24/17 07:17 12/24/17 07:17 Results - Labs CBC & Chem 7: 12/23/17 05:52 12/23/17 05:52 Labs: Laboratory Last Values WBC 4.8 K/mm3 (4.5-11.0) 12/23/17 05:52 RBC 4.09 M/mm3 (3.65-5.03) 12/23/17 05:52 Hgb 11.9 gm/dl (11.8-15.2) 12/23/17 05:52 Hct 35.5 % (35.5-45.6) 12/23/17 05:52 MCV 87 fl (84-94) 12/23/17 05:52 MCH 29 pg (28-32) 12/23/17 05:52 MCHC 34 % (32-34) 12/23/17 05:52 RDW 15.0 % (13.2-15.2) 12/23/17 05:52 Plt Count 469 K/mm3 (140-440) H 12/23/17 05:52 Lymph % (Auto) 7.9 % (13.4-35.0) L 12/23/17 05:52 [place] % (Auto) 1.8 % (0.0-7.3) 12/23/17 05:52 Eos % (Auto) 0.0 % (0.0-4.3) 12/23/17 05:52 Baso % (Auto) 0.3 % (0.0-1.8) 12/23/17 05:52 Lymph # 0.4 K/mm3 (1.2-5.4) L 12/23/17 05:52 [place] # 0.1 K/mm3 (0.0-0.8) 12/23/17 05:52 Eos # 0.0 K/mm3 (0.0-0.4) 12/23/17 05:52 Baso # 0.0 K/mm3 (0.0-0.1) 12/23/17 05:52 Seg Neutrophils % 90.0 % (40.0-70.0) H 12/23/17 05:52 Seg Neutrophils # 4.3 K/mm3 (1.8-7.7) 12/23/17 05:52 PT 12.6 Sec. (12.2-14.9) 12/22/17 11:27 INR 0.90 (0.87-1.13) 12/22/17 11:27 APTT 39.1 Sec. (24.2-36.6) H 12/22/17 11:27 Sodium 143 mmol/L (137-145) 12/23/17 05:52 Potassium 3.9 mmol/L (3.6-5.0) 12/23/17 05:52 Chloride 101.6 mmol/L (98-107) 12/23/17 05:52 Carbon Dioxide 25 mmol/L (22-30) 12/23/17 05:52 Anion Gap 20 mmol/L 12/23/17 05:52 BUN 6 mg/dL (9-20) L 12/23/17 05:52 Creatinine 0.6 mg/dL (0.8-1.5) L 12/23/17 05:52 Estimated GFR > 60 ml/min 12/23/17 05:52 BUN/Creatinine Ratio 10 % 12/23/17 05:52 Glucose 113 mg/dL (75-100) H 12/23/17 05:52 Hemoglobin A1c 5.6 % (4-6) 12/22/17 20:56 Calcium 8.7 mg/dL (8.4-10.2) 12/23/17 05:52 Total Bilirubin 0.30 mg/dL (0.1-1.2) 12/23/17 05:52 AST 14 units/L (5-40) 12/23/17 05:52 ALT 5 units/L (7-56) L 12/23/17 05:52 Alkaline Phosphatase 89 units/L (35-129) 12/23/17 05:52 Total Protein 7.2 g/dL (6.3-8.2) 12/23/17 05:52 Albumin 3.5 g/dL (3.9-5) L 12/23/17 05:52 Albumin/Globulin Ratio 0.9 % 12/23/17 05:52 Lipase 22 units/L (13-60) 12/22/17 11:27 Blood Type O POSITIVE 12/22/17 11:22 Antibody Screen Negative 12/22/17 11:22
[2017-12-24] MEDS: DUONEB *Not for PRN Use IH SCH ×3 (09:26→20:04)
[2017-12-24] MEDS: LEVAQUIN 750MG/150ML 750 MG/150 ML BAG IV SCH (10:20)
[2017-12-24] MEDS: PLAVIX PO SCH (10:21)
[2017-12-24] MEDS: HALFPRIN EC PO SCH (10:21)
--- NOTE | 2017-12-24 11:10 | Gastroenterology Consultation ---
<KEVINBRISAHUBER BUSCH - Last Filed: 12/24/17 11:10> History of Present Illness - Reason for Consult Consult date: 12/24/17 N/V Requesting physician: MIGUEL VASQUEZ - History of Present Illness Mr Inman is a 57 y/o male admitted with intractable N/V. He is seen with his brother at bedside. Mr. Inman reports that he has had a progressive cought for some time and was recently treated for bronchitis. Once he starts coughing he vomits. He DENIES nausea and does not vomit unless he is coughing. His brother at bedside endorses this. He feels he is having difficulty managing the mucus and saliva at times. The patient has a hx of CVA over 10 year ago. He denies abdominal pain. CT of A/P on 12/18/17 notable for pulmonary nodules, cholelithiasis, and SPC. Abdominal Xray on admission nonspecific bowel gas pattern. Past History Past Medical History: hypertension, renal failure, stroke, other (sp cath) Past Surgical History: Other (sp cath) Social history: lives with family Family history: hypertension Medications and Allergies Allergies Allergy/AdvReac Type Severity Reaction Status Date / Time No Known Allergies Allergy Verified 10/20/16 16:31 Home Medications Medication Instructions Recorded Confirmed Last Taken Type Aspirin [Lo-Dose Aspirin EC] 81 mg PO DAILY 07/23/17 12/22/17 07/20/17 09:00 History Clopidogrel Bisulfate [Plavix] 75 mg PO DAILY 07/23/17 12/22/17 07/20/17 09:00 History Lovastatin [Altoprev] 20 mg PO QPM 07/23/17 12/22/17 07/28/17 09:00 History Amoxicillin/K Clav Tab [Augmentin 1 each PO Q12HR #20 tablet 12/17/17 12/22/17 Unknown Rx 500 MG TAB] Ondansetron [Zofran ODT TAB] 8 mg PO Q8HR #20 tab.rapdis 12/17/17 12/22/17 Unknown Rx Active Meds: Active Medications Acetaminophen (Tylenol) 650 mg PO Q4H PRN PRN Reason: Pain MILD(1-3)/Fever >100.5/MINER Albuterol/Ipratropium (Duoneb *Not For Prn Use*) 1 ampul IH TIDRT [facility] Last Admin: 12/24/17 09:26 Dose: Not Given Aspirin (Halfprin Ec) 81 mg PO DAILY [facility] Last Admin: 12/24/17 10:21 Dose: 81 mg Clopidogrel Bisulfate (Plavix) 75 mg PO DAILY [facility] Last Admin: 12/24/17 10:21 Dose: 75 mg Heparin Sodium (Porcine) (Heparin) 5,000 unit SUB-Q Q12HR [facility] Last Admin: 12/24/17 10:30 Dose: Not Given Dextrose/Sodium Chloride (D5ns) 1,000 mls @ 75 mls/hr IV DIRECT [facility] Last Admin: 12/23/17 15:00 Dose: 75 mls/hr Levofloxacin/Dextrose (Levaquin 750mg/150ml) 750 mg in 150 mls @ 100 mls/hr IV Q24HR [facility]; Protocol Last Admin: 12/24/17 10:20 Dose: 100 mls/hr Methylprednisolone Sodium Succinate (Solu-Medrol) 40 mg IV Q8HR [facility] Last Admin: 12/24/17 08:14 Dose: Not Given Morphine Sulfate (Morphine) 2 mg IV Q4H PRN PRN Reason: Pain, Moderate (4-6) Ondansetron HCl (Zofran) 4 mg IV Q8H PRN PRN Reason: Nausea And Vomiting Ondansetron HCl (Zofran Odt) 8 mg PO Q8HR [facility] Last Admin: 12/24/17 08:08 Dose: Not Given Oxycodone/Acetaminophen (Percocet 5/325) 1 tab PO Q6H PRN PRN Reason: Pain, Moderate (4-6) Pravastatin Sodium (Pravachol) 20 mg PO QHS [facility] Last Admin: 12/24/17 01:44 Dose: 20 mg Sodium Chloride (Sodium Chloride Flush Syringe 10 Ml) 10 ml IV BID [facility] Last Admin: 12/24/17 10:31 Dose: 10 ml Sodium Chloride (Sodium Chloride Flush Syringe 10 Ml) 10 ml IV PRN PRN PRN Reason: LINE FLUSH Review of Systems - Review of Systems All systems: negative Constitutional: weakness Respiratory: cough Exam - Constitutional Vital Signs: Temp Pulse Resp BP Pulse Ox 98.3 F 71 16 112/79 99 12/24/17 07:17 12/24/17 07:17 12/24/17 07:17 12/24/17 07:17 12/24/17 07:17 General appearance: no acute distress - EENT Eyes: EOM intact ENT: hearing intact - Neck Neck: supple - Respiratory Respiratory: bilateral: diminished - Cardiovascular Rhythm: regular Heart Sounds: Present: S1 & S2 - Gastrointestinal General gastrointestinal: Present: soft, non-tender - Integumentary Integumentary: Present: warm, dry - Neurologic Neurological: alert and oriented x3, other (left sided weakness) - Psychiatric Psychiatric: cooperative - Labs CBC & Chem 7: 12/23/17 05:52 12/23/17 05:52 Assessment and Plan 1. Post-tussive emesis -Pt denies Nausea and reports he only vomits with coughing, this is endorsed by brother at bedside. -Recommend [employer] evaluation with possible MBS to evaluate for swallowing difficulties. -CT/Abdominal Xray recently negative for acute process -Further recommendations to follow. - WBC WNL, AST/ ALT WNL, Lipase WNL <ANDERSON,DANILO - Last Filed: 12/24/17 12:47> Medications and Allergies Active Meds: Active Medications Acetaminophen (Tylenol) 650 mg PO Q4H PRN PRN Reason: Pain MILD(1-3)/Fever >100.5/MINER Albuterol/Ipratropium (Duoneb *Not For Prn Use*) 1 ampul IH TIDRT [facility] Last Admin: 12/24/17 09:26 Dose: Not Given Aspirin (Halfprin Ec) 81 mg PO DAILY [facility] Last Admin: 12/24/17 10:21 Dose: 81 mg Heparin Sodium (Porcine) (Heparin) 5,000 unit SUB-Q Q12HR [facility] Last Admin: 12/24/17 10:30 Dose: Not Given Dextrose/Sodium Chloride (D5ns) 1,000 mls @ 75 mls/hr IV DIRECT [facility] Last Admin: 12/23/17 15:00 Dose: 75 mls/hr Levofloxacin/Dextrose (Levaquin 750mg/150ml) 750 mg in 150 mls @ 100 mls/hr IV Q24HR [facility]; Protocol Last Admin: 12/24/17 10:20 Dose: 100 mls/hr Methylprednisolone Sodium Succinate (Solu-Medrol) 40 mg IV Q8HR [facility] Last Admin: 12/24/17 08:14 Dose: Not Given Morphine Sulfate (Morphine) 2 mg IV Q4H PRN PRN Reason: Pain, Moderate (4-6) Ondansetron HCl (Zofran) 4 mg IV Q8H PRN PRN Reason: Nausea And Vomiting Ondansetron HCl (Zofran Odt) 8 mg PO Q8HR [facility] Last Admin: 12/24/17 08:08 Dose: Not Given Oxycodone/Acetaminophen (Percocet 5/325) 1 tab PO Q6H PRN PRN Reason: Pain, Moderate (4-6) Pravastatin Sodium (Pravachol) 20 mg PO QHS [facility] Last Admin: 12/24/17 01:44 Dose: 20 mg Sodium Chloride (Sodium Chloride Flush Syringe 10 Ml) 10 ml IV BID [facility] Last Admin: 12/24/17 10:31 Dose: 10 ml Sodium Chloride (Sodium Chloride Flush Syringe 10 Ml) 10 ml IV PRN PRN PRN Reason: LINE FLUSH Exam - Constitutional Vital Signs: Temp Pulse Resp BP Pulse Ox 98.3 F 71 16 112/79 99 12/24/17 07:17 12/24/17 07:17 12/24/17 07:17 12/24/17 07:17 12/24/17 11:26 - Labs CBC & Chem 7: 12/23/17 05:52 12/23/17 05:52 Assessment and Plan - Patient Problems (1) Dysphagia Current Visit: Yes Status: Acute Plan to address problem: The patient was seen and examined. He is a poor historian and I was unable to pin him down on the details of his swallowing dysfunction. He reports difficulty with both liquids and solids for the past 2 weeks and was doing relatively well until then. He does cough, but no consistently with PO intake. He is on Plavix and endoscopy and dilation will need to be delayed, if needed. A swallowing eval by ST is ordered and Plavix has been stopped.
--- NOTE | 2017-12-24 11:50 | Nuclear Medicine Report ---
HEPATOBILIARY SCAN: History: Cholelithiasis. Following the injection of the radionuclide, serial scanning was obtained over the right upper quadrant. Initial imaging of the liver demonstrates a relatively normal activity pattern. Progressive concentration of the radionuclide in the bile ducts, with filling of both the gallbladder and small bowel, is identified within a normal time period. IMPRESSION: Normal biliary system.
[2017-12-24] MEDS: D5NS 1,000 ML IV SCH (12:42)
--- NOTE | 2017-12-24 19:20 | Progress Note ---
Assessment and Plan Patient weak, resting on room air.O2 saturation 99%. Patient says coughing up sputum with blood. CAT scan. reported pulmonary nodules. Recommend PPD and shana skin tests. Sputum for AFb x 3. Recommend respiratory isolation. Patient has history of smoking. However he stopped smoking 15 years ago. - Patient Problems (1) Hemoptysis Current Visit: Yes Status: Acute Plan to address problem: PPD and shana skin tests. Sputum for AFB x 3 Respiratory isolation. Continue Levaquin. (2) Pulmonary nodules Current Visit: Yes Status: Acute Plan to address problem: Recommend repeat CAT scan in 3 months. Subjective Date of service: 12/24/17 Interval history: Patient weak, resting on room air.O2 saturation 99%. Patient says coughing up sputum with blood. CAT scan. reported pulmonary nodules. Recommend PPD and shana skin tests. Sputum for AFb x 3. Recommend respiratory isolation. Patient has history of smoking. However he stopped smoking 15 years ago. Objective Vital Signs - 12hr 12/24/17 12/24/17 12/24/17 11:26 14:00 14:41 Temperature 98.5 F Pulse Rate 74 Pulse Rate [ 84 Anterior Bilateral Throughout] Respiratory 18 Rate Respiratory 15 Rate [Anterior Bilateral Throughout] Blood Pressure 118/81 O2 Sat by Pulse 99 99 Oximetry 12/24/17 14:55 Temperature Pulse Rate Pulse Rate [ 77 Anterior Bilateral Throughout] Respiratory Rate Respiratory 22 Rate [Anterior Bilateral Throughout] Blood Pressure O2 Sat by Pulse Oximetry Constitutional: no acute distress, alert, other (Weak and debilitated.) Eyes: non-icteric ENT: oropharynx moist Effort: normal Ascultation: Bilateral: rhonchi Cardiovascular: regular rate and rhythm Gastrointestinal: normoactive bowel sounds, soft, non-tender Integumentary: normal Extremities: no cyanosis, no edema Neurologic: other (Left sided hemiplegia.) Psychiatric: mood appropriate CBC and BMP: 12/23/17 05:52 12/23/17 05:52 ABG, PT/INR, D-dimer: PT/INR, D-dimer PT 12.6 Sec. (12.2-14.9) 12/22/17 11:27 INR 0.90 (0.87-1.13) 12/22/17 11:27 Abnormal lab findings: Abnormal Labs 12/22/17 12/22/17 12/22/17 11:27 11:27 11:27 RDW 15.5 H Plt Count 508 H Lymph % (Auto) Lymph # Seg Neutrophils % 76.6 H APTT 39.1 H BUN 5 L Creatinine 0.7 L Glucose ALT Total Protein 8.5 H Albumin 12/23/17 12/23/17 05:52 05:52 RDW Plt Count 469 H Lymph % (Auto) 7.9 L Lymph # 0.4 L Seg Neutrophils % 90.0 H APTT BUN 6 L Creatinine 0.6 L Glucose 113 H ALT 5 L Total Protein Albumin 3.5 L Chest x-ray: report reviewed (Emphysematous changes. left lung Pulmonary nodules ), image reviewed CT scan - chest: report reviewed (No PE. Stable uncalcified pulmonary nodules left lower lobe. Recommended CT follow up), image reviewed
[2017-12-25] MEDS: D5NS 1,000 ML IV SCH (03:00)
[2017-12-25] MEDS: ZOFRAN ODT PO SCH ×3 (06:09→23:13)
[2017-12-25] MEDS: DUONEB *Not for PRN Use IH SCH ×3 (08:53→20:10)
[2017-12-25] MEDS: SODIUM CHLORIDE FLUSH SYRINGE 10 ML IV SCH ×2 (10:00→23:14)
[2017-12-25] MEDS: HALFPRIN EC PO SCH (10:00)
[2017-12-25] MEDS: HEPARIN SUB-Q SCH ×2 (10:00→23:14)
[2017-12-25] MEDS: LEVAQUIN 750MG/150ML 750 MG/150 ML BAG IV SCH (10:00)
[2017-12-25] MEDS ORDERED: APLISOL ID ONE (12:13)
--- NOTE | 2017-12-25 12:26 | Progress Note ---
Subjective Date of service: 12/25/17 Interval history: Assessment and plan: The patient is a 57-year-old male with hx of previous stroke, right hemiparesis , HTN, indewelling canales catheter, presenting with a chief complaint of cough and congestion and inablity to keep food down with persistent nausea and vomiting. The patient was recently in the hospital 12/17/2017 for chest congestion and productive cough, was diagnosed with PNA .Family states the patient's congestion persists. Patient continues to have a productive cough which leads to posttussive emesis. Patient is unable to keep any food down since his last visit. 12/25 A&O, NAD, denies pain, denies fever, chills, cough is better, denies N/V or abd. pain Interactable Nausea and vomiting : GI note reviewed appreciated Likely post tussive emesis Improving Dysphagia: May need EGD patient was taking Plavix Plavix is on hold now Await further GI recommendations Speech therapy evaluation pending to assess swallowing Poor PO intake Continue IV fluids for now Recurrent persistent cough likely acute bronchitis Chest x-ray reviewed Change antibiotic to by mouth and decrease steroid dose Bilateral penumonia: Chest x-ray reviewed Unlikely patient has pneumonia He is afebrile and his white count is normal Pulmonary Nodule: Pulmonary note reviewed and appreciated Workup in progress PPD and sputum for AFB COPD: Continue nebulizer treatments as needed HTN: Well-controlled, patient is not on any home medications for his blood pressure ?? Cholethasis: Unable to locate any test results regarding cholelithiasis However HIDA scan is normal Chronic Indwelling Canales Old stroke with Right hemiparalysis: He has flexion contractures in the left elbow and hand. However he is able to ambulate with the help of a cane as the power in the left lower extremity is about 4 / 5 Objective - Constitutional Vitals: Vital Signs - 12hr 12/25/17 08:16 Temperature 98.9 F Pulse Rate 75 Respiratory 18 Rate Blood Pressure 113/79 O2 Sat by Pulse 96 Oximetry General appearance: Present: no acute distress - EENT Eyes: PERRL, EOM intact ENT: hearing intact, clear oral mucosa, no thrush - Neck Neck: supple, normal ROM, no masses or JVD - Respiratory Respiratory: bilateral: CTA, diminished, negative: rhonchi, wheezing - Cardiovascular Rhythm: regular Heart Sounds: Present: S1 & S2 Extremities: No edema - Gastrointestinal General gastrointestinal: Present: soft, non-tender. Absent: hepatomegaly, splenomegaly Rectal Exam: deferred - Genitourinary Male genitourinary: deferred - Integumentary Integumentary: clear - Musculoskeletal Musculoskeletal: left sided weakness (power in left upper extremity is 1 over 5 and power in the left lower extremity is 4 over 5) - Psychiatric Psychiatric: appropriate mood/affect - Labs CBC & Chem 7: 12/23/17 05:52 12/23/17 05:52
[2017-12-25] MEDS: DELTASONE PO SCH (13:00)
[2017-12-25] MEDS ORDERED: D5NS 1,000 ML IV SCH (13:00)
--- NOTE | 2017-12-25 18:56 | Progress Note ---
Assessment and Plan Patient weak, resting on room air.O2 saturation 94%. Patient says coughing up sputum with blood. CAT scan reported pulmonary nodules. Recommend PPD and shana skin tests. Sputum for AFb x 3. Recommend respiratory isolation. Patient has history of smoking. However he stopped smoking 15 years ago. - Patient Problems (1) Hemoptysis Current Visit: Yes Status: Acute Plan to address problem: PPD and shana skin tests. Sputum for AFB results pending. Respiratory isolation. Continue Levaquin. (2) Pulmonary nodules Current Visit: Yes Status: Acute Plan to address problem: Recommend repeat CAT scan in 3 months. Subjective Date of service: 12/25/17 Interval history: Patient weak, resting on room air.O2 saturation 96%. Patient says coughing up sputum with blood. CAT scan reported pulmonary nodules. Recommend PPD and shana skin tests. Sputum for AFb x 3. Recommend respiratory isolation. Patient has history of smoking. However he stopped smoking 15 years ago. Objective Vital Signs - 12hr 12/25/17 08:16 Temperature 98.9 F Pulse Rate 75 Respiratory 18 Rate Blood Pressure 113/79 O2 Sat by Pulse 96 Oximetry Constitutional: no acute distress, alert, other (Weak and debilitated.) Eyes: non-icteric ENT: oropharynx moist Neck: supple, no lymphadenopathy Effort: normal Ascultation: Bilateral: rhonchi Cardiovascular: regular rate and rhythm Gastrointestinal: normoactive bowel sounds, soft, non-tender Integumentary: normal Extremities: no cyanosis, no edema Neurologic: other (Left sided hemiplegia.) Psychiatric: mood appropriate CBC and BMP: 12/23/17 05:52 12/23/17 05:52 ABG, PT/INR, D-dimer: PT/INR, D-dimer PT 12.6 Sec. (12.2-14.9) 12/22/17 11:27 INR 0.90 (0.87-1.13) 12/22/17 11:27 Abnormal lab findings: Abnormal Labs 12/22/17 12/22/17 12/22/17 11:27 11:27 11:27 RDW 15.5 H Plt Count 508 H Lymph % (Auto) Lymph # Seg Neutrophils % 76.6 H APTT 39.1 H BUN 5 L Creatinine 0.7 L Glucose ALT Total Protein 8.5 H Albumin 12/23/17 12/23/17 05:52 05:52 RDW Plt Count 469 H Lymph % (Auto) 7.9 L Lymph # 0.4 L Seg Neutrophils % 90.0 H APTT BUN 6 L Creatinine 0.6 L Glucose 113 H ALT 5 L Total Protein Albumin 3.5 L
--- NOTE | 2017-12-25 19:23 | Gastroenterology Progress Note ---
Assessment and Plan - Patient Problems (1) Dysphagia Current Visit: Yes Status: Acute Plan to address problem: Speech therapy has been consulted. He may need MBS and possibly EGD. Patient now in respiratory isolation. Would recommend peripheral parental nutrition in the interim until able to evaluate his swallowing. Subjective Date of service: 12/25/17 Principal diagnosis: dysphagia, n/v Interval history: The patient reports feeling about the same with great difficulty swallowing. Objective - Constitutional Vitals: Temp Pulse Resp BP Pulse Ox 98.9 F 75 18 113/79 96 12/25/17 08:16 12/25/17 08:16 12/25/17 08:16 12/25/17 08:16 12/25/17 08:16 General appearance: no acute distress - EENT ENT: hearing intact - Respiratory Respiratory effort: normal Respiratory: bilateral: CTA - Gastrointestinal General gastrointestinal: Present: soft, non-tender, non-distended, normal bowel sounds - Neurologic Neurological: alert and oriented x3 - Labs CBC & Chem 7: 12/23/17 05:52 12/23/17 05:52
[2017-12-25] MEDS: PRAVACHOL PO SCH (23:14)
[2017-12-26] MEDS: PRAVACHOL PO SCH ×2 (01:51→23:05)
[2017-12-26] MEDS: ZOFRAN ODT PO SCH ×3 (05:48→23:05)
[2017-12-26] MEDS: DUONEB *Not for PRN Use IH SCH ×3 (08:57→19:32)
[2017-12-26] MEDS: HALFPRIN EC PO SCH (10:00)
[2017-12-26] MEDS: DELTASONE PO SCH (10:00)
[2017-12-26] MEDS: HEPARIN SUB-Q SCH ×2 (10:00→23:03)
--- NOTE | 2017-12-26 10:51 | Progress Note ---
Subjective Date of service: 12/26/17 Principal diagnosis: dysphagia, n/v Interval history: The patient is a 57-year-old male with hx of previous stroke, left hemiparesis, HTN, indewelling canales catheter, presenting with a chief complaint of cough and congestion and inablity to keep food down with persistent nausea and vomiting. The patient was recently in the hospital 12/17/2017 for chest congestion and productive cough, was diagnosed with PNA .Family states the patient's congestion persists. Patient continues to have a productive cough which leads to posttussive emesis. Patient is unable to keep any food down since his last visit. 12/25 A&O, NAD, denies pain, denies fever, chills, cough is better, denies N/V or abd. pain 12/26 resting, no apparent distress, spitting up mucoid secretions, there was no blood in the container, but apparently patient coughed up blood per discussion with speech therapist. She also has a requested a modified barium swallow and recommended patient to be nothing by mouth. All interdisciplinary note reviewed and appreciated. Lab results reviewed. Interactable Nausea and vomiting : GI note reviewed appreciated Likely post tussive emesis Dysphagia: May need EGD patient was taking Plavix Plavix is on hold now Await further GI recommendations Speech therapy evaluated the patient Continue nothing by mouth and patient is scheduled for modified barium swallow We will request nutrition consult was started on PPN Recurrent persistent cough likely acute bronchitis Chest x-ray reviewed Patient is nothing by mouth Continue IV antibiotic empirically Bilateral penumonia: Chest x-ray reviewed Unlikely patient has pneumonia He is afebrile and his white count is normal Pulmonary Nodule: Pulmonary note reviewed and appreciated Workup in progress PPD and sputum for AFB COPD: Continue nebulizer treatments as needed HTN: Well-controlled, patient is not on any home medications for his blood pressure ?? Cholethasis: Unable to locate any test results regarding cholelithiasis However HIDA scan is normal Chronic Indwelling Canales Old stroke with left hemiparalysis: He has flexion contractures in the left elbow and hand. However he is able to ambulate with the help of a cane as the power in the left lower extremity is about 4 / 5 Objective - Constitutional Vitals: Vital Signs - 12hr 12/26/17 12/26/17 12/26/17 07:50 08:54 09:14 Temperature 98.0 F Pulse Rate 71 Pulse Rate [ 68 68 Anterior Bilateral Throughout] Respiratory 20 Rate Respiratory 20 18 Rate [Anterior Bilateral Throughout] Blood Pressure 112/70 O2 Sat by Pulse 98 Oximetry General appearance: Present: no acute distress - EENT Eyes: PERRL, EOM intact ENT: hearing intact - Neck Neck: supple, normal ROM, no masses or JVD - Respiratory Respiratory effort: normal Respiratory: bilateral: CTA, diminished - Cardiovascular Rhythm: regular Heart Sounds: Present: S1 & S2 Extremities: No edema Extremity abnormal: other (left elbow and left MCP joint contractures) - Gastrointestinal General gastrointestinal: Present: soft, non-tender. Absent: hepatomegaly, splenomegaly Rectal Exam: deferred - Integumentary Integumentary: clear - Musculoskeletal Musculoskeletal: left sided weakness - Labs CBC & Chem 7: 12/23/17 05:52 12/23/17 05:52
[2017-12-26] MEDS: SODIUM CHLORIDE FLUSH SYRINGE 10 ML IV SCH ×2 (12:00→23:03)
--- NOTE | 2017-12-26 13:05 | Fluoroscopy Report ---
MODIFIED BARIUM SWALLOW: 12/26/17 09:45:00 CLINICAL: Dysphagia. FINDINGS: The patient ingested barium impregnated substances of varying consistencies and swallowing was observed fluoroscopically. For more detail, please refer to the speech pathologist's report.
--- NOTE | 2017-12-26 13:23 | Progress Note ---
Assessment and Plan Patient weak and sleeping on room air.O2 saturation 98%. Patient says coughing up sputum with blood. CAT scan reported pulmonary nodules. Recommend PPD and shana skin tests. Sputum for AFb x 3. Respiratory isolation. Patient has history of smoking. However he stopped smoking 15 years ago. - Patient Problems (1) Hemoptysis Current Visit: Yes Status: Acute Plan to address problem: PPD and shana skin tests. Sputum for AFB results pending. Respiratory isolation. Patient is on ceftrioxone. (2) Pulmonary nodules Current Visit: Yes Status: Acute Plan to address problem: Recommend repeat CAT scan in 3 months. Subjective Date of service: 12/26/17 Principal diagnosis: dysphagia, n/v Interval history: Patient weak and sleeping at this time on room air.O2 saturation 98%. Patient says coughing up sputum with blood. CAT scan reported pulmonary nodules. Recommend PPD and shana skin tests. Sputum for AFb x 3. Respiratory isolation. Patient has history of smoking. However he stopped smoking 15 years ago. Objective Vital Signs - 12hr 12/26/17 12/26/17 12/26/17 07:50 08:54 09:14 Temperature 98.0 F Pulse Rate 71 Pulse Rate [ 68 68 Anterior Bilateral Throughout] Respiratory 20 Rate Respiratory 20 18 Rate [Anterior Bilateral Throughout] Blood Pressure 112/70 O2 Sat by Pulse 98 Oximetry Constitutional: no acute distress, asleep, other (Weak and debilitated.) Eyes: non-icteric ENT: oropharynx moist Neck: supple, no lymphadenopathy Effort: normal Ascultation: Bilateral: rhonchi Cardiovascular: regular rate and rhythm Gastrointestinal: normoactive bowel sounds, soft, non-tender Integumentary: normal Extremities: no cyanosis, no edema Neurologic: other (Left sided hemiplegia.) Psychiatric: mood appropriate CBC and BMP: 12/23/17 05:52 12/23/17 05:52 ABG, PT/INR, D-dimer: PT/INR, D-dimer PT 12.6 Sec. (12.2-14.9) 12/22/17 11:27 INR 0.90 (0.87-1.13) 12/22/17 11:27 Abnormal lab findings: Abnormal Labs 12/22/17 12/22/17 12/22/17 11:27 11:27 11:27 RDW 15.5 H Plt Count 508 H Lymph % (Auto) Lymph # Seg Neutrophils % 76.6 H APTT 39.1 H BUN 5 L Creatinine 0.7 L Glucose ALT Total Protein 8.5 H Albumin 12/23/17 12/23/17 05:52 05:52 RDW Plt Count 469 H Lymph % (Auto) 7.9 L Lymph # 0.4 L Seg Neutrophils % 90.0 H APTT BUN 6 L Creatinine 0.6 L Glucose 113 H ALT 5 L Total Protein Albumin 3.5 L
--- NOTE | 2017-12-26 14:02 | Gastroenterology Progress Note ---
Assessment and Plan 1. dysphagia - suspect olu-pharyngeal. esophagram when able to (off droplet precautions). noted MRI pending to evaluate for any new/acute process 2. Productive cough/pulmonary lesions - pulmonary following, infectious work-up on going 3. h/o CVA Subjective Date of service: 12/26/17 Principal diagnosis: dysphagia, n/v Interval history: pt seen and examined. resting in bed, c/o weakness and coughing spells. npo. mri pending. on droplet precautions Objective - Exam Narrative Exam: Gen: nad, chronically ill appearing cv: rrr, no murmurs Abd: soft, nt, nd, + bs lungs: coarse bs, non labored Ext: no edema - Constitutional Vitals: Temp Pulse Resp BP Pulse Ox 98.0 F 68 18 112/70 98 12/26/17 07:50 12/26/17 09:14 12/26/17 09:14 12/26/17 07:50 12/26/17 07:50 - Labs CBC & Chem 7: 12/23/17 05:52 12/23/17 05:52
[2017-12-26] MEDS: cefTRIAXone 1 GM in NACL 0.9% 20 ML IV SCH (18:00)
[2017-12-26] MEDS ORDERED: CLINIMIX 4.25%-5% SOLUTION 2,000 ML IV SCH (20:00)
[2017-12-27] MEDS: ZOFRAN IV PRN ×3 (02:02→22:35)
[2017-12-27] MEDS: ZOFRAN ODT PO SCH ×2 (06:15→23:16)
[2017-12-27] MEDS: DUONEB *Not for PRN Use IH SCH ×3 (08:02→20:15)
[2017-12-27 09:13] LABS: Hematocrit 38.6 % (35.5-45.6); Hemoglobin 12.7 gm/dl (11.8-15.2)
[2017-12-27 09:45] LABS: Albumin 3.4 g/dL (3.9-5); BUN/Creatinine Ratio 10; Blood Urea Nitrogen 7 mg/dL (9-20); Calcium 8.6 mg/dL (8.4-10.2); Hemolysis Index 2
[2017-12-27 09:59] LABS: Alanine Aminotransferase < 5 units/L (7-56)
[2017-12-27] MEDS: DELTASONE PO SCH (11:21)
[2017-12-27] MEDS: HALFPRIN EC PO SCH (11:21)
[2017-12-27] MEDS: cefTRIAXone 1 GM in NACL 0.9% 20 ML IV SCH (12:06)
[2017-12-27] MEDS: HEPARIN SUB-Q SCH ×2 (12:06→22:33)
[2017-12-27] MEDS: SODIUM CHLORIDE FLUSH SYRINGE 10 ML IV SCH (12:08)
--- NOTE | 2017-12-27 12:51 | Progress Note ---
Subjective Date of service: 12/27/17 Principal diagnosis: dysphagia, n/v Interval history: The patient is a 57-year-old male with hx of previous stroke, left hemiparesis, HTN, indewelling canales catheter, presenting with a chief complaint of cough and congestion and inablity to keep food down with persistent nausea and vomiting. The patient was recently in the hospital 12/17/2017 for chest congestion and productive cough, was diagnosed with PNA .Family states the patient's congestion persists. Patient continues to have a productive cough which leads to posttussive emesis. Patient is unable to keep any food down since his last visit. 12/25 A&O, NAD, denies pain, denies fever, chills, cough is better, denies N/V or abd. pain 12/26 resting, no apparent distress, spitting up mucoid secretions, there was no blood in the container, but apparently patient coughed up blood per discussion with speech therapist. She also has a requested a modified barium swallow and recommended patient to be nothing by mouth. All interdisciplinary note reviewed and appreciated. Lab results reviewed. 12/27 patient is awake and alert, no apparent distress, plaints of nausea, denies vomiting or abdominal pain. is in the room and I answered all her questions He is waiting for placement Interactable Nausea and vomiting : improving well GI note reviewed appreciated Likely post tussive emesis Dysphagia: GI note reviewed and appreciated May need EGD Plavix is on hold now Await further GI recommendations Speech therapy note reviewed Modified barium swallow shows the laryngeal penetration Continue nothing by mouth started on PPN Recurrent persistent cough likely acute bronchitis Chest x-ray reviewed Patient is nothing by mouth Continue IV antibiotic empirically Bilateral penumonia: Chest x-ray reviewed Unlikely patient has pneumonia He is afebrile and his white count is normal Pulmonary Nodule: Pulmonary note reviewed and appreciated Workup in progress PPD and sputum for AFB COPD: Continue nebulizer treatments as needed HTN: Well-controlled, patient is not on any home medications for his blood pressure ?? Cholethasis: Unable to locate any test results regarding cholelithiasis However HIDA scan is normal Chronic Indwelling [place] Old stroke with left hemiparalysis: He has flexion contractures in the left elbow and hand. However he is able to ambulate with the help of a cane as the power in the left lower extremity is about 4 / 5 DVT prophylaxis: HSQ Objective - Constitutional Vitals: Vital Signs - 12hr 12/27/17 12/27/17 12/27/17 07:28 07:50 08:00 Temperature 98.1 F Pulse Rate [ 78 77 Anterior Bilateral Throughout] Respiratory 20 Rate Respiratory 18 18 Rate [Anterior Bilateral Throughout] Blood Pressure 117/72 General appearance: Present: no acute distress - EENT Eyes: PERRL, EOM intact ENT: hearing intact - Neck Neck: supple, normal ROM - Respiratory Respiratory effort: normal Respiratory: bilateral: CTA, diminished - Cardiovascular Rhythm: regular Heart Sounds: Present: S1 & S2 Extremities: No edema - Gastrointestinal General gastrointestinal: Present: soft, non-tender - Integumentary Integumentary: clear - Musculoskeletal Musculoskeletal: left sided weakness (problem for 1 over 5 in left upper and lower extremities) - Psychiatric Psychiatric: appropriate mood/affect - Labs CBC & Chem 7: 12/27/17 08:56 12/27/17 08:56 Labs: Abnormal lab results 12/27/17 Range/Units 08:56 Potassium 3.5 L (3.6-5.0) mmol/L BUN 7 L (9-20) mg/dL Creatinine 0.7 L (0.8-1.5) mg/dL ALT < 5 L (7-56) units/L Albumin 3.4 L (3.9-5) g/dL
--- NOTE | 2017-12-27 19:42 | Progress Note ---
Assessment and Plan Patient awake . Patient is weak. Patient resting on room air.O2 saturation 94% . Patient says still coughing up sputum . CAT scan reported pulmonary nodules. Patient has history of smoking. However he stopped smoking 15 years ago. Sputum for AFB results still pending. - Patient Problems (1) Hemoptysis Current Visit: Yes Status: Acute Plan to address problem: PPD and shana skin tests. Sputum for AFB results pending. Respiratory isolation. Patient is on ceftrioxone. (2) Pulmonary nodules Current Visit: Yes Status: Acute Plan to address problem: Recommend repeat CAT scan in 3 months. Subjective Date of service: 12/27/17 Principal diagnosis: dysphagia, n/v Interval history: Patient awake . Patient is weak. Patient resting on room air.O2 saturation 94% . Patient says still coughing up sputum . CAT scan reported pulmonary nodules. Patient has history of smoking. However he stopped smoking 15 years ago. Sputum for AFB results still pending. Objective Vital Signs - 12hr 12/27/17 12/27/17 12/27/17 07:50 08:00 14:10 Temperature Pulse Rate Pulse Rate [ 78 77 78 Anterior Bilateral Throughout] Respiratory Rate Respiratory 18 18 18 Rate [Anterior Bilateral Throughout] Blood Pressure O2 Sat by Pulse Oximetry 12/27/17 12/27/17 14:20 16:28 Temperature 98.1 F Pulse Rate 68 Pulse Rate [ 77 Anterior Bilateral Throughout] Respiratory 20 Rate Respiratory 18 Rate [Anterior Bilateral Throughout] Blood Pressure 130/89 O2 Sat by Pulse 94 Oximetry Constitutional: no acute distress, alert, other (Weak and debilitated.) Eyes: non-icteric ENT: oropharynx moist Neck: supple, no lymphadenopathy Effort: normal Ascultation: Bilateral: rhonchi Cardiovascular: regular rate and rhythm Gastrointestinal: normoactive bowel sounds, soft, non-tender Integumentary: normal Extremities: no cyanosis, no edema Neurologic: other (Left sided hemiplegia.) Psychiatric: mood appropriate CBC and BMP: 12/27/17 08:56 12/27/17 08:56 ABG, PT/INR, D-dimer: PT/INR, D-dimer PT 12.6 Sec. (12.2-14.9) 12/22/17 11:27 INR 0.90 (0.87-1.13) 12/22/17 11:27 Abnormal lab findings: Abnormal Labs 12/22/17 12/22/17 12/22/17 11:27 11:27 11:27 RDW 15.5 H Plt Count 508 H Lymph % (Auto) Lymph # Seg Neutrophils % 76.6 H APTT 39.1 H Potassium BUN 5 L Creatinine 0.7 L Glucose ALT Total Protein 8.5 H Albumin 12/23/17 12/23/17 12/27/17 05:52 05:52 08:56 RDW Plt Count 469 H Lymph % (Auto) 7.9 L Lymph # 0.4 L Seg Neutrophils % 90.0 H APTT Potassium 3.5 L BUN 6 L 7 L Creatinine 0.6 L 0.7 L Glucose 113 H ALT 5 L < 5 L Total Protein Albumin 3.5 L 3.4 L
[2017-12-27] MEDS ORDERED: TPN ADULT 2,016 ML IV SCH (20:00)
[2017-12-27] MEDS: PRAVACHOL PO SCH (23:16)
[2017-12-28] MEDS: ZOFRAN ODT PO SCH ×3 (07:49→22:26)
[2017-12-28] MEDS: SODIUM CHLORIDE FLUSH SYRINGE 10 ML IV SCH ×3 (07:51→22:27)
[2017-12-28] MEDS: DUONEB *Not for PRN Use IH SCH ×3 (08:00→20:36)
--- NOTE | 2017-12-28 08:23 | Magnetic Resonance Report ---
FINAL REPORT EXAM: MR BRAIN WO CON HISTORY: suspected new stroke TECHNIQUE: Multi sequence, Multiplanar MR imaging is through the brain without gadolinium intravenous contrast. PRIORS: None provided. FINDINGS: There is no restricted diffusion. Right lateral ventricle temporal occipital encephalomalacia with surrounding superior posterior right frontal subcortical white matter hyperintensity on axial series 8, image 20. There is associated curvilinear peripheral increased susceptibility seen on axial series 6, images 15-17. Additional much smaller punctate deep and subcortical white matter hyperintense foci are present in the left periventricular region and centrum semiovale. The ventricles and cisterns and sulci are otherwise proportionately enlarged consistent with parenchymal volume loss. No midline shift or herniation. No midline shift or herniation. Intracranial vasculature is within normal limits. Normal spherical shape of the globes. No significant abnormality involving the mastoid air cells or paranasal sinuses. IMPRESSION: No acute ischemia or mass effect within the brain. Right posterior frontal periventricular possible subacute to chronic hemorrhage versus cortical necrosis and calcifications surrounding area of encephalomalacia associated with prior stroke. Correlation with prior imaging and updated noncontrast head CT is recommended. Sequela of prior infarct and chronic parenchymal volume loss and microvascular angiopathy. Notification initiated via [employer] product support immediately following this dictation on 12/28/2017.
[2017-12-28] MEDS: HALFPRIN EC PO SCH (09:59)
--- NOTE | 2017-12-28 10:41 | Progress Note ---
Assessment and Plan The patient is a 57-year-old male with hx of previous stroke, left hemiparesis, HTN, indewelling canales catheter, presenting with a chief complaint of cough and congestion and inablity to keep food down with persistent nausea and vomiting. The patient was recently in the hospital 12/17/2017 for chest congestion and productive cough, was diagnosed with PNA .Family states the patient's congestion persists. Patient continues to have a productive cough which leads to posttussive emesis. Patient is unable to keep any food down since his last visit. 12/25 A&O, NAD, denies pain, denies fever, chills, cough is better, denies N/V or abd. pain 12/26 resting, no apparent distress, spitting up mucoid secretions, there was no blood in the container, but apparently patient coughed up blood per discussion with speech therapist. She also has a requested a modified barium swallow and recommended patient to be nothing by mouth. All interdisciplinary note reviewed and appreciated. Lab results reviewed. 12/27 patient is awake and alert, no apparent distress, plaints of nausea, denies vomiting or abdominal pain. is in the room and I answered all her questions He is waiting for placement Interactable Nausea and vomiting : improving well GI note reviewed appreciated Likely post tussive emesis Severe Oropharyngeal Dysphagia: GI note reviewed and appreciated Speech therapy note reviewed Modified barium swallow showed severe oropharyngeal dysphagia Continue nothing by mouth started on PPN Bilateral penumonia: likely aspiration pneumonia Pulmonary Nodule: For bronchoscopy in am Pulmonary note reviewed and appreciated Workup in progress PPD and sputum for AFB COPD: Continue nebulizer treatments as needed HTN: Well-controlled, patient is not on any home medications for his blood pressure ?? Cholethasis: Unable to locate any test results regarding cholelithiasis However HIDA scan is normal Chronic Indwelling [place] Old stroke with left hemiparalysis: He has flexion contractures in the left elbow and hand. However he is able to ambulate with the help of a cane as the power in the left lower extremity is about 4 / 5 Discussed with pt's brother regarding status DVT prophylaxis: HSQ Subjective Date of service: 12/28/17 Principal diagnosis: dysphagia, n/v Interval history: pt seen and examined. Still complaining of sever dysphagia. He has an old stroke with left Hemiparesis Objective - Constitutional Vitals: Vital Signs - 12hr 12/28/17 12/28/17 12/28/17 07:15 07:16 08:00 Temperature 98.2 F Pulse Rate 84 Pulse Rate [ 82 Anterior Bilateral Throughout] Respiratory 18 Rate Respiratory 18 Rate [Anterior Bilateral Throughout] Blood Pressure 95/69 12/28/17 08:10 Temperature Pulse Rate Pulse Rate [ 82 Anterior Bilateral Throughout] Respiratory Rate Respiratory 18 Rate [Anterior Bilateral Throughout] Blood Pressure General appearance: Present: no acute distress, well-nourished - EENT Eyes: PERRL, EOM intact - Neck Neck: supple, normal ROM - Respiratory Respiratory effort: normal Respiratory: bilateral: CTA - Cardiovascular Rhythm: regular Heart Sounds: Present: S1 & S2. Absent: gallop, rub Extremities: pulses intact, No edema, normal color, Full ROM - Gastrointestinal General gastrointestinal: Present: soft, non-tender, non-distended, normal bowel sounds - Integumentary Integumentary: clear, warm, dry - Musculoskeletal Musculoskeletal: left sided weakness - Neurologic Neurologic: gait normal, other (left sided weakness) - Psychiatric Psychiatric: appropriate mood/affect, cooperative - Labs CBC & Chem 7: 12/27/17 08:56 12/28/17 13:31
--- NOTE | 2017-12-28 11:50 | Progress Note ---
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 -With his hemoptysis and suspicious lung nodules, recommend CT guided biopsy with cultures/pathology. He was a smoker and is at risk for malignancy. -Aspiration precautions -Evaluate for possible PEG placement for nutritional support -VTE prophylaxis -Complete antibiotic course -Follow up on AFB smears Subjective Date of service: 12/28/17 Principal diagnosis: dysphagia, n/v Interval history: Seen and examined. Vitals, labs, medications, chart reviewed. On going copious secretions, no fevers, no further episodes of hemoptysis On TPN, remains NPO Objective - Exam Narrative Exam: GENERAL: The patient is chronically ill looking, weak man HEENT: Normocephalic. Atraumatic. Extraocular motions are intact. NECK: Supple. Trachea midline CHEST/LUNGS: Clear to auscultation. There is no respiratory distress noted. HEART/CARDIOVASCULAR: Regular. There is no tachycardia. There is no gallop rub or murmur. ABDOMEN: Abdomen is soft, non tender, BS normal, No organomegaly SKIN: There is no rash. There is no edema. There is no diaphoresis. NEURO: The patient is awake, alert, and oriented. The patient is cooperative. The patient has residual left-sided weakness from previous CVA. MUSCULOSKELETAL: There is no evidence of acute injury. Vital Signs - 12hr 12/28/17 12/28/17 12/28/17 07:15 07:16 08:00 Temperature 98.2 F Pulse Rate 84 Pulse Rate [ 82 Anterior Bilateral Throughout] Respiratory 18 Rate Respiratory 18 Rate [Anterior Bilateral Throughout] Blood Pressure 95/69 12/28/17 08:10 Temperature Pulse Rate Pulse Rate [ 82 Anterior Bilateral Throughout] Respiratory Rate Respiratory 18 Rate [Anterior Bilateral Throughout] Blood Pressure Constitutional: no acute distress, alert, other (Weak and debilitated.) Eyes: non-icteric ENT: oropharynx moist Neck: supple, no lymphadenopathy Effort: normal Ascultation: Bilateral: rhonchi Cardiovascular: regular rate and rhythm Gastrointestinal: normoactive bowel sounds, soft, non-tender Integumentary: normal Extremities: no cyanosis, no edema Neurologic: other (Left sided hemiplegia.) Psychiatric: mood appropriate CBC and BMP: 12/27/17 08:56 12/27/17 08:56 ABG, PT/INR, D-dimer: PT/INR, D-dimer PT 12.6 Sec. (12.2-14.9) 12/22/17 11:27 INR 0.90 (0.87-1.13) 12/22/17 11:27 Abnormal lab findings: Abnormal Labs 12/22/17 12/22/17 12/22/17 11:27 11:27 11:27 RDW 15.5 H Plt Count 508 H Lymph % (Auto) Lymph # Seg Neutrophils % 76.6 H APTT 39.1 H Potassium BUN 5 L Creatinine 0.7 L Glucose ALT Total Protein 8.5 H Albumin 12/23/17 12/23/17 12/27/17 05:52 05:52 08:56 RDW Plt Count 469 H Lymph % (Auto) 7.9 L Lymph # 0.4 L Seg Neutrophils % 90.0 H APTT Potassium 3.5 L BUN 6 L 7 L Creatinine 0.6 L 0.7 L Glucose 113 H ALT 5 L < 5 L Total Protein Albumin 3.5 L 3.4 L
[2017-12-28] MEDS: DELTASONE PO SCH (12:00)
[2017-12-28] MEDS: cefTRIAXone 1 GM in NACL 0.9% 20 ML IV SCH (12:01)
[2017-12-28] MEDS: HEPARIN SUB-Q SCH (12:01)
[2017-12-28 14:48] LABS: BUN/Creatinine Ratio 20; Blood Urea Nitrogen 12 mg/dL (9-20); Calcium 9.1 mg/dL (8.4-10.2); Hemolysis Index 9
[2017-12-28 14:49] LABS: BUN/Creatinine Ratio 20; Blood Urea Nitrogen 12 mg/dL (9-20); Calcium 8.9 mg/dL (8.4-10.2); Hemolysis Index 49
[2017-12-28] MEDS ORDERED: TPN ADULT 2,016 ML IV SCH (20:00)
[2017-12-28] MEDS: PRAVACHOL PO SCH (22:26)
[2017-12-29] MEDS: ZOFRAN ODT PO SCH ×3 (06:37→22:47)
[2017-12-29 08:06] LABS: BUN/Creatinine Ratio 26; Blood Urea Nitrogen 13 mg/dL (9-20); Hemolysis Index 0
[2017-12-29] MEDS: DUONEB *Not for PRN Use IH SCH ×3 (09:03→20:40)
[2017-12-29] MEDS ORDERED: VERSED IV ONE (09:24)
[2017-12-29] MEDS ORDERED: SUBLIMAZE IV ONE (09:24)
--- NOTE | 2017-12-29 10:41 | Cat Scan Report ---
CT BIOPSY LUNG LEFT History: Left lung mass Description of procedure: Informed consent was obtained. Sterile technique was utilized. 1% lidocaine for skin anesthesia. Moderate sedation was accomplished with Versed and fentanyl. The patient was sedated for 20 minutes. Intra-observer time of 30 minutes. Independent cardiorespiratory monitoring by RN. Using CT guidance, a 1.6 cm pleural-based mass in the posterior left lower lobe was localized. 3 separate 20-gauge 2.2 cm core biopsies were obtained for pathology. The samples were deemed adequate by the pathologist in the CT suite. No complications. Impression: Successful CT-guided biopsy of a left lower lobe pleural-based mass as described.
--- NOTE | 2017-12-29 11:27 | Progress Note ---
Assessment and Plan Assessment and plan: Intractable Nausea and vomiting : improving well GI note reviewed appreciated Likely post tussive emesis Severe Oropharyngeal Dysphagia: Modified barium swallow showed severe oropharyngeal dysphagia Continue nothing by mouth started on PPN Bilateral penumonia: likely aspiration pneumonia Pulmonary Nodule: For bronchoscopy per Pulm PPD and sputum for AFB Pulm recommends CT guided biopsy with cultures/pathology. COPD: Continue nebulizer treatments as needed HTN: Well-controlled, patient is not on any home medications for his blood pressure ?? Cholethiasis: Unable to locate any test results regarding cholelithiasis However HIDA scan is normal Chronic Indwelling [place] Old stroke with left hemiparalysis: He has flexion contractures in the left elbow and hand. However he is able to ambulate with the help of a cane as the power in the left lower extremity is about 4 / 5 DVT prophylaxis: HSQ History Interval history: The patient is a 57-year-old male with hx of previous stroke, left hemiparesis, HTN, indewelling canales catheter, presenting with a chief complaint of cough and congestion and inablity to keep food down with persistent nausea and vomiting. The patient was recently in the hospital 12/17/2017 for chest congestion and productive cough, was diagnosed with PNA .Family states the patient's congestion persists. Patient continues to have a productive cough which leads to posttussive emesis. Patient is unable to keep any food down since his last visit. 6 A&O, NAD, denies pain, denies fever, chills, cough is better, denies N/V or abd. pain 12/26 resting, no apparent distress, spitting up mucoid secretions, there was no blood in the container, but apparently patient coughed up blood per discussion with speech therapist. She also has a requested a modified barium swallow and recommended patient to be nothing by mouth. Hospitalist Physical - Constitutional Vitals: Temp Pulse Resp BP Pulse Ox 98.7 F 88 14 100/70 100 12/29/17 07:49 12/29/17 10:45 12/29/17 10:45 12/29/17 10:45 12/29/17 10:45 General appearance: Present: no acute distress, well-nourished - EENT Eyes: Present: PERRL, EOM intact ENT: hearing intact, clear oral mucosa, dentition normal - Neck Neck: Present: supple, normal ROM - Respiratory Respiratory effort: normal Respiratory: bilateral: CTA - Cardiovascular Rhythm: regular Heart Sounds: Present: S1 & S2. Absent: gallop, rub - Extremities Extremities: no ischemia, No edema, Full ROM - Abdominal General gastrointestinal: soft, non-tender, non-distended, normal bowel sounds - Integumentary Integumentary: Present: clear, warm, dry - Neurologic Neurologic: CNII-XII intact, moves all extremities Results - Labs CBC & Chem 7: 12/27/17 08:56 12/29/17 07:04 Labs: Laboratory Last Values WBC 4.8 K/mm3 (4.5-11.0) 12/23/17 05:52 RBC 4.09 M/mm3 (3.65-5.03) 12/23/17 05:52 Hgb 12.7 gm/dl (11.8-15.2) 12/27/17 08:56 Hct 38.6 % (35.5-45.6) 12/27/17 08:56 MCV 87 fl (84-94) 12/23/17 05:52 MCH 29 pg (28-32) 12/23/17 05:52 MCHC 34 % (32-34) 12/23/17 05:52 RDW 15.0 % (13.2-15.2) 12/23/17 05:52 Plt Count 469 K/mm3 (140-440) H 12/23/17 05:52 Lymph % (Auto) 7.9 % (13.4-35.0) L 12/23/17 05:52 [place] % (Auto) 1.8 % (0.0-7.3) 12/23/17 05:52 Eos % (Auto) 0.0 % (0.0-4.3) 12/23/17 05:52 Baso % (Auto) 0.3 % (0.0-1.8) 12/23/17 05:52 Lymph # 0.4 K/mm3 (1.2-5.4) L 12/23/17 05:52 [place] # 0.1 K/mm3 (0.0-0.8) 12/23/17 05:52 Eos # 0.0 K/mm3 (0.0-0.4) 12/23/17 05:52 Baso # 0.0 K/mm3 (0.0-0.1) 12/23/17 05:52 Seg Neutrophils % 90.0 % (40.0-70.0) H 12/23/17 05:52 Seg Neutrophils # 4.3 K/mm3 (1.8-7.7) 12/23/17 05:52 PT 12.6 Sec. (12.2-14.9) 12/22/17 11:27 INR 0.90 (0.87-1.13) 12/22/17 11:27 APTT 39.1 Sec. (24.2-36.6) H 12/22/17 11:27 Sodium 139 mmol/L (137-145) 12/29/17 07:04 Potassium 4.2 mmol/L (3.6-5.0) 12/29/17 07:04 Chloride 99.9 mmol/L (98-107) 12/29/17 07:04 Carbon Dioxide 28 mmol/L (22-30) 12/29/17 07:04 Anion Gap 15 mmol/L 12/29/17 07:04 BUN 13 mg/dL (9-20) 12/29/17 07:04 Creatinine 0.5 mg/dL (0.8-1.5) L 12/29/17 07:04 Estimated GFR > 60 ml/min 12/29/17 07:04 BUN/Creatinine Ratio 26 % 12/29/17 07:04 Glucose 93 mg/dL (75-100) 12/29/17 07:04 POC Glucose 85 (70-105) 12/28/17 05:31 Hemoglobin A1c 5.6 % (4-6) 12/22/17 20:56 Calcium 9.0 mg/dL (8.4-10.2) 12/29/17 07:04 Phosphorus 3.40 mg/dL (2.5-4.5) 12/29/17 07:04 Magnesium 2.10 mg/dL (1.7-2.3) 12/29/17 07:04 Total Bilirubin 0.30 mg/dL (0.1-1.2) 12/27/17 08:56 AST 9 units/L (5-40) 12/27/17 08:56 ALT < 5 units/L (7-56) L 12/27/17 08:56 Alkaline Phosphatase 77 units/L (35-129) 12/27/17 08:56 Total Protein 6.6 g/dL (6.3-8.2) 12/27/17 08:56 Albumin 3.4 g/dL (3.9-5) L 12/27/17 08:56 Albumin/Globulin Ratio 1.1 % 12/27/17 08:56 Lipase 22 units/L (13-60) 12/22/17 11:27 Blood Type O POSITIVE 12/22/17 11:22 Antibody Screen Negative 12/22/17 11:22
--- NOTE | 2017-12-29 12:36 | XRay Report ---
AP CHEST: HISTORY: Left lung mass, recent CT-guided biopsy of left lower lobe mass Recent CT-guided biopsy of the left lung was performed. There is no evidence for pneumothorax. The left lung nodules appear stable. The right lung is clear. No evidence for infiltrate or pleural fluid. Normal heart size. Calcified mediastinal lymph nodes consistent with chronic primary modest disease are noted. IMPRESSION: No evidence for left pneumothorax.
[2017-12-29] MEDS: HALFPRIN EC PO SCH (13:55)
[2017-12-29] MEDS: DELTASONE PO SCH (13:55)
--- NOTE | 2017-12-29 19:14 | Progress Note ---
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 Vitals, labs, medications, chart reviewed. On going copious secretions, no fevers, no further episodes of hemoptysis On TPN, remains NPO s/p CT guided biopsy of pleural based lung lesion. Objective - Exam Narrative Exam: GENERAL: The patient is chronically ill looking, weak man HEENT: Normocephalic. Atraumatic. Extraocular motions are intact. NECK: Supple. Trachea midline CHEST/LUNGS: Clear to auscultation. There is no respiratory distress noted. HEART/CARDIOVASCULAR: Regular. There is no tachycardia. There is no gallop rub or murmur. ABDOMEN: Abdomen is soft, non tender, BS normal, No organomegaly SKIN: There is no rash. There is no edema. There is no diaphoresis. NEURO: The patient is awake, alert, and oriented. The patient is cooperative. The patient has residual left-sided weakness from previous CVA. MUSCULOSKELETAL: There is no evidence of acute injury. Vital Signs - 12hr 12/29/17 12/29/17 12/29/17 07:49 09:41 10:12 Temperature 98.7 F Pulse Rate 72 Pulse Rate [ 84 88 Intra-Procedure ] Pulse Rate [ Post-Procedure] Respiratory 20 Rate Respiratory 13 12 Rate [Intra- Procedure] Respiratory Rate [Post- Procedure] Blood Pressure 120/81 Blood Pressure 122/82 122/74 [Intra- Procedure] Blood Pressure [Post-Procedure ] O2 Sat by Pulse 100 Oximetry O2 Sat by Pulse 96 100 Oximetry [ Intra-Procedure ] O2 Sat by Pulse Oximetry [Post -Procedure] 12/29/17 12/29/17 12/29/17 10:17 10:22 10:28 Temperature Pulse Rate Pulse Rate [ 89 94 H 88 Intra-Procedure ] Pulse Rate [ Post-Procedure] Respiratory Rate Respiratory 12 10 L 12 Rate [Intra- Procedure] Respiratory Rate [Post- Procedure] Blood Pressure Blood Pressure 99/71 95/66 96/64 [Intra- Procedure] Blood Pressure [Post-Procedure ] O2 Sat by Pulse Oximetry O2 Sat by Pulse 100 100 Oximetry [ Intra-Procedure ] O2 Sat by Pulse Oximetry [Post -Procedure] 12/29/17 12/29/17 12/29/17 10:35 10:45 17:17 Temperature 98.7 F Pulse Rate 81 Pulse Rate [ Intra-Procedure ] Pulse Rate [ 90 88 Post-Procedure] Respiratory 20 Rate Respiratory Rate [Intra- Procedure] Respiratory 12 14 Rate [Post- Procedure] Blood Pressure 92/64 Blood Pressure [Intra- Procedure] Blood Pressure 91/69 100/70 [Post-Procedure ] O2 Sat by Pulse 99 Oximetry O2 Sat by Pulse Oximetry [ Intra-Procedure ] O2 Sat by Pulse 100 100 Oximetry [Post -Procedure] Constitutional: no acute distress, alert, other (Weak and debilitated.) Eyes: non-icteric ENT: oropharynx moist Neck: supple, no lymphadenopathy Effort: normal Ascultation: Bilateral: rhonchi Cardiovascular: regular rate and rhythm Gastrointestinal: normoactive bowel sounds, soft, non-tender Integumentary: normal Extremities: no cyanosis, no edema Neurologic: other (Left sided hemiplegia.) Psychiatric: mood appropriate CBC and BMP: 12/27/17 08:56 12/29/17 07:04 ABG, PT/INR, D-dimer: PT/INR, D-dimer PT 12.6 Sec. (12.2-14.9) 12/22/17 11:27 INR 0.90 (0.87-1.13) 12/22/17 11:27 Abnormal lab findings: Abnormal Labs 12/22/17 12/22/17 12/22/17 11:27 11:27 11:27 RDW 15.5 H Plt Count 508 H Lymph % (Auto) Lymph # Seg Neutrophils % 76.6 H APTT 39.1 H Sodium Potassium BUN 5 L Creatinine 0.7 L Glucose ALT Total Protein 8.5 H Albumin 12/23/17 12/23/17 12/27/17 05:52 05:52 08:56 RDW Plt Count 469 H Lymph % (Auto) 7.9 L Lymph # 0.4 L Seg Neutrophils % 90.0 H APTT Sodium Potassium 3.5 L BUN 6 L 7 L Creatinine 0.6 L 0.7 L Glucose 113 H ALT 5 L < 5 L Total Protein Albumin 3.5 L 3.4 L 12/28/17 12/28/17 12/29/17 13:31 13:31 07:04 RDW Plt Count Lymph % (Auto) Lymph # Seg Neutrophils % APTT Sodium 147 H Potassium BUN Creatinine 0.6 L 0.6 L 0.5 L Glucose ALT Total Protein Albumin
[2017-12-29] MEDS ORDERED: TPN ADULT 2,016 ML IV SCH (20:00)
[2017-12-29] MEDS: PRAVACHOL PO SCH (22:47)
[2017-12-29] MEDS: SODIUM CHLORIDE FLUSH SYRINGE 10 ML IV SCH (22:47)
[2017-12-30] MEDS: ZOFRAN ODT PO SCH ×3 (05:27→22:08)
[2017-12-30] MEDS: DUONEB *Not for PRN Use IH SCH ×3 (08:04→20:29)
[2017-12-30 08:59] LABS: Basophils % (Auto) 0.5 % (0.0-1.8); Eosinophils # (Auto) 0.2 K/mm3 (0.0-0.4); Eosinophils % (Auto) 1.9 % (0.0-4.3); Hematocrit 38.6 % (35.5-45.6); Hemoglobin 12.5 gm/dl (11.8-15.2); Lymphocytes # (Auto) 1.7 K/mm3 (1.2-5.4); Lymphocytes % (Auto) 18.5 % (13.4-35.0); Mean Corpuscular HGB Conc 33 % (32-34); Mean Corpuscular Hemoglobin 29 pg (28-32); Mean Corpuscular Volume 88 fl (84-94); Monocytes # (Auto) 0.7 K/mm3 (0.0-0.8); Monocytes % (Auto) 7.1 % (0.0-7.3); Platelet Count 462 K/mm3 (140-440); Red Blood Count 4.39 M/mm3 (3.65-5.03); Red Cell Distribution Width 15.5 % (13.2-15.2)
[2017-12-30 09:10] LABS: BUN/Creatinine Ratio 27; Blood Urea Nitrogen 16 mg/dL (9-20); Calcium 9.2 mg/dL (8.4-10.2); Hemolysis Index 6
--- NOTE | 2017-12-30 11:41 | Event Note ---
Date: 12/30/17 MBS results and BILINGUAL OPERATOR eval reviewed. Will evaluate patient for PEG once off of isolation/droplet precautions and cleared by pulmonology. Continue alternative method for nutrition with TPN in the mean time.
--- NOTE | 2017-12-30 11:59 | Progress Note ---
Assessment and Plan Assessment and plan: Intractable Nausea and vomiting : improving well GI note reviewed appreciated Likely post tussive emesis Severe Oropharyngeal Dysphagia: Modified barium swallow showed severe oropharyngeal dysphagia Continue nothing by mouth started on PPN Esophagram per GI. Bilateral penumonia: likely aspiration pneumonia Pulmonary Nodule/left lower lobe pleural-based mass For bronchoscopy per Pulm PPD and sputum for AFB CT guided biopsy with cultures/pathology completed yesterday. Results pending COPD: Continue nebulizer treatments as needed HTN: Well-controlled, patient is not on any home medications for his blood pressure ?? Cholethiasis: Unable to locate any test results regarding cholelithiasis However HIDA scan is normal Chronic Indwelling [place]ales Old stroke with left hemiparalysis: He has flexion contractures in the left elbow and hand. However he is able to ambulate with the help of a cane as the power in the left lower extremity is about 4 / 5 DVT prophylaxis: HSQ History Interval history: The patient is a 57-year-old male with hx of previous stroke, left hemiparesis, HTN, indewelling canales catheter, presenting with a chief complaint of cough and congestion and inablity to keep food down with persistent nausea and vomiting. The patient was recently in the hospital 12/17/2017 for chest congestion and productive cough, was diagnosed with PNA .Family states the patient's congestion persists. Patient continues to have a productive cough which leads to posttussive emesis. Patient is unable to keep any food down since his last visit. 12/25 A&O, NAD, denies pain, denies fever, chills, cough is better, denies N/V or abd. pain 12/26 resting, no apparent distress, spitting up mucoid secretions, there was no blood in the container, but apparently patient coughed up blood per discussion with speech therapist. She also has a requested a modified barium swallow and recommended patient to be nothing by mouth. Hospitalist Physical - Constitutional Vitals: Temp Pulse Resp BP Pulse Ox 98.2 F 90 18 125/84 98 12/30/17 08:10 12/30/17 08:10 12/30/17 08:10 12/30/17 08:10 12/30/17 10:00 General appearance: Present: no acute distress, well-nourished - EENT Eyes: Present: PERRL, EOM intact ENT: hearing intact, clear oral mucosa, dentition normal - Neck Neck: Present: supple, normal ROM - Respiratory Respiratory effort: normal Respiratory: bilateral: CTA - Cardiovascular Rhythm: regular Heart Sounds: Present: S1 & S2. Absent: gallop, rub - Extremities Extremities: no ischemia, No edema, Full ROM - Abdominal General gastrointestinal: soft, non-tender, non-distended, normal bowel sounds - Integumentary Integumentary: Present: clear, warm, dry - Neurologic Neurologic: CNII-XII intact, moves all extremities Results - Labs CBC & Chem 7: 12/30/17 08:30 12/30/17 08:30 Labs: Laboratory Last Values WBC 9.2 K/mm3 (4.5-11.0) 12/30/17 08:30 RBC 4.39 M/mm3 (3.65-5.03) 12/30/17 08:30 Hgb 12.5 gm/dl (11.8-15.2) 12/30/17 08:30 Hct 38.6 % (35.5-45.6) 12/30/17 08:30 MCV 88 fl (84-94) 12/30/17 08:30 MCH 29 pg (28-32) 12/30/17 08:30 MCHC 33 % (32-34) 12/30/17 08:30 RDW 15.5 % (13.2-15.2) H 12/30/17 08:30 Plt Count 462 K/mm3 (140-440) H 12/30/17 08:30 Lymph % (Auto) 18.5 % (13.4-35.0) 12/30/17 08:30 [place] % (Auto) 7.1 % (0.0-7.3) 12/30/17 08:30 Eos % (Auto) 1.9 % (0.0-4.3) 12/30/17 08:30 Baso % (Auto) 0.5 % (0.0-1.8) 12/30/17 08:30 Lymph # 1.7 K/mm3 (1.2-5.4) 12/30/17 08:30 [place] # 0.7 K/mm3 (0.0-0.8) 12/30/17 08:30 Eos # 0.2 K/mm3 (0.0-0.4) 12/30/17 08:30 Baso # 0.0 K/mm3 (0.0-0.1) 12/30/17 08:30 Seg Neutrophils % 72.0 % (40.0-70.0) H 12/30/17 08:30 Seg Neutrophils # 6.6 K/mm3 (1.8-7.7) 12/30/17 08:30 PT 12.6 Sec. (12.2-14.9) 12/22/17 11:27 INR 0.90 (0.87-1.13) 12/22/17 11:27 APTT 39.1 Sec. (24.2-36.6) H 12/22/17 11:27 Sodium 137 mmol/L (137-145) 12/30/17 08:30 Potassium 4.0 mmol/L (3.6-5.0) 12/30/17 08:30 Chloride 98.3 mmol/L (98-107) 12/30/17 08:30 Carbon Dioxide 26 mmol/L (22-30) 12/30/17 08:30 Anion Gap 17 mmol/L 12/30/17 08:30 BUN 16 mg/dL (9-20) 12/30/17 08:30 Creatinine 0.6 mg/dL (0.8-1.5) L 12/30/17 08:30 Estimated GFR > 60 ml/min 12/30/17 08:30 BUN/Creatinine Ratio 27 % 12/30/17 08:30 Glucose 103 mg/dL (75-100) H 12/30/17 08:30 POC Glucose 86 (70-105) 12/30/17 05:12 Hemoglobin A1c 5.6 % (4-6) 12/22/17 20:56 Calcium 9.2 mg/dL (8.4-10.2) 12/30/17 08:30 Phosphorus 3.30 mg/dL (2.5-4.5) 12/30/17 08:30 Magnesium 2.10 mg/dL (1.7-2.3) 12/30/17 08:30 Total Bilirubin 0.30 mg/dL (0.1-1.2) 12/27/17 08:56 AST 9 units/L (5-40) 12/27/17 08:56 ALT < 5 units/L (7-56) L 12/27/17 08:56 Alkaline Phosphatase 77 units/L (35-129) 12/27/17 08:56 Total Protein 6.6 g/dL (6.3-8.2) 12/27/17 08:56 Albumin 3.4 g/dL (3.9-5) L 12/27/17 08:56 Albumin/Globulin Ratio 1.1 % 12/27/17 08:56 Lipase 22 units/L (13-60) 12/22/17 11:27 Blood Type O POSITIVE 12/22/17 11:22 Antibody Screen Negative 12/22/17 11:22
[2017-12-30] MEDS: HALFPRIN EC PO SCH (12:38)
[2017-12-30] MEDS: DELTASONE PO SCH (12:38)
[2017-12-30] MEDS: cefTRIAXone 1 GM in NACL 0.9% 20 ML IV SCH ×2 (13:51→20:23)
--- NOTE | 2017-12-30 16:05 | Progress Note ---
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 Vitals, labs, medications, chart reviewed. On going copious secretions, no fevers, no further episodes of hemoptysis On TPN, remains NPO s/p CT guided biopsy of pleural based lung lesion. Objective - Exam Narrative Exam: GENERAL: The patient is chronically ill looking, weak man HEENT: Normocephalic. Atraumatic. Extraocular motions are intact. NECK: Supple. Trachea midline CHEST/LUNGS: Clear to auscultation. There is no respiratory distress noted. HEART/CARDIOVASCULAR: Regular. There is no tachycardia. There is no gallop rub or murmur. ABDOMEN: Abdomen is soft, non tender, BS normal, No organomegaly SKIN: There is no rash. There is no edema. There is no diaphoresis. NEURO: The patient is awake, alert, and oriented. The patient is cooperative. The patient has residual left-sided weakness from previous CVA. MUSCULOSKELETAL: There is no evidence of acute injury. Vital Signs - 12hr 12/30/17 12/30/17 12/30/17 07:50 08:00 08:10 Temperature 98.2 F Pulse Rate 90 Pulse Rate [ 90 91 H Anterior Bilateral Throughout] Respiratory 18 Rate Respiratory 18 18 Rate [Anterior Bilateral Throughout] Blood Pressure 125/84 O2 Sat by Pulse 99 Oximetry 12/30/17 10:00 Temperature Pulse Rate Pulse Rate [ Anterior Bilateral Throughout] Respiratory Rate Respiratory Rate [Anterior Bilateral Throughout] Blood Pressure O2 Sat by Pulse 98 Oximetry Constitutional: no acute distress, alert, other (Weak and debilitated.) Eyes: non-icteric ENT: oropharynx moist Neck: supple, no lymphadenopathy Effort: normal Ascultation: Bilateral: rhonchi Cardiovascular: regular rate and rhythm Gastrointestinal: normoactive bowel sounds, soft, non-tender Integumentary: normal Extremities: no cyanosis, no edema Neurologic: other (Left sided hemiplegia.) Psychiatric: mood appropriate CBC and BMP: 12/30/17 08:30 12/30/17 08:30 ABG, PT/INR, D-dimer: PT/INR, D-dimer PT 12.6 Sec. (12.2-14.9) 12/22/17 11:27 INR 0.90 (0.87-1.13) 12/22/17 11:27 Abnormal lab findings: Abnormal Labs 12/22/17 12/22/17 12/22/17 11:27 11:27 11:27 RDW 15.5 H Plt Count 508 H Lymph % (Auto) Lymph # Seg Neutrophils % 76.6 H APTT 39.1 H Sodium Potassium BUN 5 L Creatinine 0.7 L Glucose ALT Total Protein 8.5 H Albumin 12/23/17 12/23/17 12/27/17 05:52 05:52 08:56 RDW Plt Count 469 H Lymph % (Auto) 7.9 L Lymph # 0.4 L Seg Neutrophils % 90.0 H APTT Sodium Potassium 3.5 L BUN 6 L 7 L Creatinine 0.6 L 0.7 L Glucose 113 H ALT 5 L < 5 L Total Protein Albumin 3.5 L 3.4 L 12/28/17 12/28/17 12/29/17 13:31 13:31 07:04 RDW Plt Count Lymph % (Auto) Lymph # Seg Neutrophils % APTT Sodium 147 H Potassium BUN Creatinine 0.6 L 0.6 L 0.5 L Glucose ALT Total Protein Albumin 12/30/17 12/30/17 08:30 08:30 RDW 15.5 H Plt Count 462 H Lymph % (Auto) Lymph # Seg Neutrophils % 72.0 H APTT Sodium Potassium BUN Creatinine 0.6 L Glucose 103 H ALT Total Protein Albumin
[2017-12-30] MEDS ORDERED: TPN ADULT 2,016 ML IV SCH (20:00)
[2017-12-30] MEDS: SODIUM CHLORIDE FLUSH SYRINGE 10 ML IV SCH ×2 (20:23→22:09)
[2017-12-30] MEDS: PRAVACHOL PO SCH (21:58)
[2017-12-31] MEDS: DUONEB *Not for PRN Use IH SCH ×3 (07:08→20:59)
[2017-12-31 08:15] LABS: Basophils % (Auto) 0.5 % (0.0-1.8); Eosinophils # (Auto) 0.2 K/mm3 (0.0-0.4); Eosinophils % (Auto) 2.7 % (0.0-4.3); Hematocrit 40.5 % (35.5-45.6); Hemoglobin 12.8 gm/dl (11.8-15.2); Lymphocytes # (Auto) 1.7 K/mm3 (1.2-5.4); Lymphocytes % (Auto) 20.5 % (13.4-35.0); Mean Corpuscular HGB Conc 32 % (32-34); Mean Corpuscular Hemoglobin 28 pg (28-32); Mean Corpuscular Volume 88 fl (84-94); Monocytes # (Auto) 0.9 K/mm3 (0.0-0.8); Monocytes % (Auto) 10.1 % (0.0-7.3); Platelet Count 452 K/mm3 (140-440); Red Blood Count 4.59 M/mm3 (3.65-5.03); Red Cell Distribution Width 15.2 % (13.2-15.2)
[2017-12-31 08:37] LABS: BUN/Creatinine Ratio 30; Blood Urea Nitrogen 18 mg/dL (9-20); Calcium 9.5 mg/dL (8.4-10.2); Hemolysis Index 26
--- NOTE | 2017-12-31 09:54 | Gastroenterology Progress Note ---
Assessment and Plan 1.Dysphagia -failed speech eval 12/26 -currently NPO on TPN -discussed PEG tube placement with patient this am to include the nature of procedure, details of the technique, benefits, pupose, and risks including perforation, bleeding, infection, and independent risks of anesthesia. He is in agreement and wishes to proceed. -will schedule for EGD/PEG in am -INR in am -NPO after MN 2.intractable N/V- now resolved 3.pulmonary nodules- s/p CT guided bx with pathology positive for squamous cell carcinoma pulmonary following 4.h/o CVA Subjective Date of service: 12/31/17 Principal diagnosis: dysphagia, n/v Interval history: Patient resting in bed w/o acute distress. Denies abd pain or N/V. Respirations unlabored. NPO on TPN. Objective - Constitutional Vitals: Temp Pulse Resp BP Pulse Ox 97.9 F 87 20 129/93 98 12/31/17 07:35 12/31/17 07:35 12/31/17 07:35 12/31/17 07:35 12/31/17 07:35 General appearance: no acute distress, other (weak) - Respiratory Respiratory: bilateral: diminished - Cardiovascular Rhythm: regular Heart Sounds: Present: S1 & S2 - Gastrointestinal General gastrointestinal: Present: soft, non-tender, non-distended, normal bowel sounds - Musculoskeletal Musculoskeletal: other (Left sided weakness) - Neurologic Neurological: alert and oriented x3 - Labs CBC & Chem 7: 12/31/17 07:12 12/31/17 07:12 Labs: Laboratory Results - last 24 hr 12/30/17 12/30/17 12/31/17 00:19 05:12 07:12 WBC 8.4 RBC 4.59 Hgb 12.8 Hct 40.5 MCV 88 MCH 28 MCHC 32 RDW 15.2 Plt Count 452 H Lymph % (Auto) 20.5 [place] % (Auto) 10.1 H Eos % (Auto) 2.7 Baso % (Auto) 0.5 Lymph # 1.7 [place] # 0.9 H Eos # 0.2 Baso # 0.0 Seg Neutrophils % 66.2 Seg Neutrophils # 5.6 Sodium Potassium Chloride Carbon Dioxide Anion Gap BUN Creatinine Estimated GFR BUN/Creatinine Ratio Glucose POC Glucose 86 86 Calcium Phosphorus Magnesium 12/31/17 07:12 WBC RBC Hgb Hct MCV MCH MCHC RDW Plt Count Lymph % (Auto) [place] % (Auto) Eos % (Auto) Baso % (Auto) Lymph # [place] # Eos # Baso # Seg Neutrophils % Seg Neutrophils # Sodium 139 Potassium 4.8 Chloride 95.7 L Carbon Dioxide 26 Anion Gap 22 BUN 18 Creatinine 0.6 L Estimated GFR > 60 BUN/Creatinine Ratio 30 Glucose 81 POC Glucose Calcium 9.5 Phosphorus 3.60 Magnesium 2.10
--- NOTE | 2017-12-31 10:15 | Progress Note ---
Assessment and Plan Assessment and plan: Squamous cell lung CA. s/p CT guided biopsy, pathology positive for squamous cell carcinoma Pulmonary following Oncology consultation. Severe Oropharyngeal Dysphagia: Modified barium swallow showed severe oropharyngeal dysphagia Continue nothing by mouth started on PPN GI discussed PEG tube placement with patient this am to include the nature of procedure, details of the technique, benefits, pupose, and risks including perforation, bleeding, infection, and independent risks of anesthesia. He is in agreement and wishes to proceed. Also, GI will schedule for EGD/PEG in am Bilateral penumonia: likely aspiration pneumonia cont abx Pulmonary Nodule/left lower lobe pleural-based mass Bronchoscopy per Pulm PPD and sputum for AFB CT guided biopsy with cultures/pathology completed yesterday. Results pending COPD: Continue nebulizer treatments as needed HTN: Well-controlled, patient is not on any home medications for his blood pressure ?? Cholethiasis: Unable to locate any test results regarding cholelithiasis However HIDA scan is normal Chronic Indwelling [place] Old stroke with left hemiparalysis: He has flexion contractures in the left elbow and hand. However he is able to ambulate with the help of a cane as the power in the left lower extremity is about 4 / 5 DVT prophylaxis: HSQ History Interval history: The patient is a 57-year-old male with hx of previous stroke, left hemiparesis, HTN, indewelling canales catheter, presenting with a chief complaint of cough and congestion and inablity to keep food down with persistent nausea and vomiting. The patient was recently in the hospital 12/17/2017 for chest congestion and productive cough, was diagnosed with PNA .Family states the patient's congestion persists. Patient continues to have a productive cough which leads to posttussive emesis. Patient is unable to keep any food down since his last visit. 12/25 A&O, NAD, denies pain, denies fever, chills, cough is better, denies N/V or abd. pain 12/26 resting, no apparent distress, spitting up mucoid secretions, there was no blood in the container, but apparently patient coughed up blood per discussion with speech therapist. She also has a requested a modified barium swallow and recommended patient to be nothing by mouth. Hospitalist Physical - Constitutional Vitals: Temp Pulse Resp BP Pulse Ox 97.9 F 87 20 129/93 98 12/31/17 07:35 12/31/17 07:35 12/31/17 07:35 12/31/17 07:35 12/31/17 07:35 General appearance: Present: no acute distress, well-nourished - EENT Eyes: Present: PERRL, EOM intact ENT: hearing intact, clear oral mucosa, dentition normal - Neck Neck: Present: supple, normal ROM - Respiratory Respiratory effort: normal Respiratory: bilateral: CTA - Cardiovascular Rhythm: regular Heart Sounds: Present: S1 & S2. Absent: gallop, rub - Extremities Extremities: no ischemia, No edema, Full ROM - Abdominal General gastrointestinal: soft, non-tender, non-distended, normal bowel sounds - Integumentary Integumentary: Present: clear, warm, dry - Neurologic Neurologic: CNII-XII intact, moves all extremities Results - Labs CBC & Chem 7: 12/31/17 07:12 12/31/17 07:12 Labs: Laboratory Last Values WBC 8.4 K/mm3 (4.5-11.0) 12/31/17 07:12 RBC 4.59 M/mm3 (3.65-5.03) 12/31/17 07:12 Hgb 12.8 gm/dl (11.8-15.2) 12/31/17 07:12 Hct 40.5 % (35.5-45.6) 12/31/17 07:12 MCV 88 fl (84-94) 12/31/17 07:12 MCH 28 pg (28-32) 12/31/17 07:12 MCHC 32 % (32-34) 12/31/17 07:12 RDW 15.2 % (13.2-15.2) 12/31/17 07:12 Plt Count 452 K/mm3 (140-440) H 12/31/17 07:12 Lymph % (Auto) 20.5 % (13.4-35.0) 12/31/17 07:12 [place] % (Auto) 10.1 % (0.0-7.3) H 12/31/17 07:12 Eos % (Auto) 2.7 % (0.0-4.3) 12/31/17 07:12 Baso % (Auto) 0.5 % (0.0-1.8) 12/31/17 07:12 Lymph # 1.7 K/mm3 (1.2-5.4) 12/31/17 07:12 [place] # 0.9 K/mm3 (0.0-0.8) H 12/31/17 07:12 Eos # 0.2 K/mm3 (0.0-0.4) 12/31/17 07:12 Baso # 0.0 K/mm3 (0.0-0.1) 12/31/17 07:12 Seg Neutrophils % 66.2 % (40.0-70.0) 12/31/17 07:12 Seg Neutrophils # 5.6 K/mm3 (1.8-7.7) 12/31/17 07:12 PT 12.6 Sec. (12.2-14.9) 12/22/17 11:27 INR 0.90 (0.87-1.13) 12/22/17 11:27 APTT 39.1 Sec. (24.2-36.6) H 12/22/17 11:27 Sodium 139 mmol/L (137-145) 12/31/17 07:12 Potassium 4.8 mmol/L (3.6-5.0) 12/31/17 07:12 Chloride 95.7 mmol/L (98-107) L 12/31/17 07:12 Carbon Dioxide 26 mmol/L (22-30) 12/31/17 07:12 Anion Gap 22 mmol/L 12/31/17 07:12 BUN 18 mg/dL (9-20) 12/31/17 07:12 Creatinine 0.6 mg/dL (0.8-1.5) L 12/31/17 07:12 Estimated GFR > 60 ml/min 12/31/17 07:12 BUN/Creatinine Ratio 30 % 12/31/17 07:12 Glucose 81 mg/dL (75-100) 12/31/17 07:12 POC Glucose 86 (70-105) 12/30/17 05:12 Hemoglobin A1c 5.6 % (4-6) 12/22/17 20:56 Calcium 9.5 mg/dL (8.4-10.2) 12/31/17 07:12 Phosphorus 3.60 mg/dL (2.5-4.5) 12/31/17 07:12 Magnesium 2.10 mg/dL (1.7-2.3) 12/31/17 07:12 Total Bilirubin 0.30 mg/dL (0.1-1.2) 12/27/17 08:56 AST 9 units/L (5-40) 12/27/17 08:56 ALT < 5 units/L (7-56) L 12/27/17 08:56 Alkaline Phosphatase 77 units/L (35-129) 12/27/17 08:56 Total Protein 6.6 g/dL (6.3-8.2) 12/27/17 08:56 Albumin 3.4 g/dL (3.9-5) L 12/27/17 08:56 Albumin/Globulin Ratio 1.1 % 12/27/17 08:56 Lipase 22 units/L (13-60) 12/22/17 11:27 Blood Type O POSITIVE 12/22/17 11:22 Antibody Screen Negative 12/22/17 11:22
[2017-12-31] MEDS: cefTRIAXone 1 GM in NACL 0.9% 20 ML IV SCH (13:37)
[2017-12-31] MEDS: HALFPRIN EC PO SCH (13:38)
[2017-12-31] MEDS: DELTASONE PO SCH (13:38)
[2017-12-31] MEDS: ZOFRAN ODT PO SCH (13:38)
--- NOTE | 2017-12-31 14:03 | Progress Note ---
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 -s/p CT guided biopsy, follow pathology report -Aspiration precautions -Evaluate for possible PEG placement for nutritional support -VTE prophylaxis -Complete antibiotic course -Follow up on AFB smears Subjective Date of service: 12/31/17 Principal diagnosis: dysphagia, n/v Objective Vital Signs - 12hr 12/31/17 12/31/17 12/31/17 07:08 07:18 07:35 Temperature 97.9 F Pulse Rate 87 Pulse Rate [ 92 H 89 Anterior Bilateral Throughout] Respiratory 20 Rate Respiratory 20 20 Rate [Anterior Bilateral Throughout] Blood Pressure 129/93 O2 Sat by Pulse 98 Oximetry Constitutional: no acute distress, alert, other (Weak and debilitated.) Eyes: non-icteric ENT: oropharynx moist Neck: supple, no lymphadenopathy Effort: normal Ascultation: Bilateral: rhonchi Cardiovascular: regular rate and rhythm Gastrointestinal: normoactive bowel sounds, soft, non-tender Integumentary: normal Extremities: no cyanosis, no edema Neurologic: other (Left sided hemiplegia.) Psychiatric: mood appropriate CBC and BMP: 12/31/17 07:12 12/31/17 07:12 ABG, PT/INR, D-dimer: PT/INR, D-dimer PT 12.6 Sec. (12.2-14.9) 12/22/17 11:27 INR 0.90 (0.87-1.13) 12/22/17 11:27 Abnormal lab findings: Abnormal Labs 12/22/17 12/22/17 12/22/17 11:27 11:27 11:27 RDW 15.5 H Plt Count 508 H Lymph % (Auto) [place] % (Auto) Lymph # [place] # Seg Neutrophils % 76.6 H APTT 39.1 H Sodium Potassium Chloride BUN 5 L Creatinine 0.7 L Glucose ALT Total Protein 8.5 H Albumin 12/23/17 12/23/17 12/27/17 05:52 05:52 08:56 RDW Plt Count 469 H Lymph % (Auto) 7.9 L [place] % (Auto) Lymph # 0.4 L [place] # Seg Neutrophils % 90.0 H APTT Sodium Potassium 3.5 L Chloride BUN 6 L 7 L Creatinine 0.6 L 0.7 L Glucose 113 H ALT 5 L < 5 L Total Protein Albumin 3.5 L 3.4 L 12/28/17 12/28/17 12/29/17 13:31 13:31 07:04 RDW Plt Count Lymph % (Auto) [place] % (Auto) Lymph # [place] # Seg Neutrophils % APTT Sodium 147 H Potassium Chloride BUN Creatinine 0.6 L 0.6 L 0.5 L Glucose ALT Total Protein Albumin 12/30/17 12/30/17 12/31/17 08:30 08:30 07:12 RDW 15.5 H Plt Count 462 H 452 H Lymph % (Auto) [place] % (Auto) 10.1 H Lymph # [place] # 0.9 H Seg Neutrophils % 72.0 H APTT Sodium Potassium Chloride BUN Creatinine 0.6 L Glucose 103 H ALT Total Protein Albumin 12/31/17 07:12 RDW Plt Count Lymph % (Auto) [place] % (Auto) Lymph # [place] # Seg Neutrophils % APTT Sodium Potassium Chloride 95.7 L BUN Creatinine 0.6 L Glucose ALT Total Protein Albumin
--- NOTE | 2017-12-31 15:08 | Progress Note ---
Assessment and Plan Patient sleeping at this time. Patient resting on room air.O2 saturation 94%. Patient Undergone percutaneous needle biopsy of chest lesion. Reported malignant cells with necrosis. Recommend to consult Oncology. - Patient Problems (1) Hemoptysis Current Visit: Yes Status: Acute Plan to address problem: Patient denies hemoptysis. Lung nodules reported malignancy. Sputum AFB x1 reported negative. (2) Pulmonary nodules Current Visit: Yes Status: Acute Plan to address problem: Patient undergone percutaneous needle biopsy of chest lesion. Subjective Date of service: 12/31/17 Principal diagnosis: dysphagia, n/v Interval history: Patient sleeping at this time. on room air.O2 saturation 94%. Patient Undergone percutaneous needle biopsy of chest lesion.Reported malignant cell present with necrosis. Recommend to consult Oncology. Objective Vital Signs - 12hr 12/31/17 12/31/17 12/31/17 07:08 07:18 07:35 Temperature 97.9 F Pulse Rate 87 Pulse Rate [ 92 H 89 Anterior Bilateral Throughout] Respiratory 20 Rate Respiratory 20 20 Rate [Anterior Bilateral Throughout] Blood Pressure 129/93 O2 Sat by Pulse 98 Oximetry 12/31/17 12/31/17 14:23 14:33 Temperature Pulse Rate Pulse Rate [ 86 83 Anterior Bilateral Throughout] Respiratory Rate Respiratory 20 20 Rate [Anterior Bilateral Throughout] Blood Pressure O2 Sat by Pulse Oximetry Constitutional: no acute distress, alert, other (Weak and debilitated.) Eyes: non-icteric ENT: oropharynx moist Neck: supple, no lymphadenopathy Effort: normal Ascultation: Bilateral: rhonchi Cardiovascular: regular rate and rhythm Gastrointestinal: normoactive bowel sounds, soft, non-tender Integumentary: normal Extremities: no cyanosis, no edema Neurologic: other (Left sided hemiplegia.) Psychiatric: mood appropriate CBC and BMP: 12/31/17 07:12 12/31/17 07:12 ABG, PT/INR, D-dimer: PT/INR, D-dimer PT 12.6 Sec. (12.2-14.9) 12/22/17 11:27 INR 0.90 (0.87-1.13) 12/22/17 11:27 Abnormal lab findings: Abnormal Labs 12/22/17 12/22/17 12/22/17 11:27 11:27 11:27 RDW 15.5 H Plt Count 508 H Lymph % (Auto) [place] % (Auto) Lymph # [place] # Seg Neutrophils % 76.6 H APTT 39.1 H Sodium Potassium Chloride BUN 5 L Creatinine 0.7 L Glucose ALT Total Protein 8.5 H Albumin 12/23/17 12/23/17 12/27/17 05:52 05:52 08:56 RDW Plt Count 469 H Lymph % (Auto) 7.9 L [place] % (Auto) Lymph # 0.4 L [place] # Seg Neutrophils % 90.0 H APTT Sodium Potassium 3.5 L Chloride BUN 6 L 7 L Creatinine 0.6 L 0.7 L Glucose 113 H ALT 5 L < 5 L Total Protein Albumin 3.5 L 3.4 L 12/28/17 12/28/17 12/29/17 13:31 13:31 07:04 RDW Plt Count Lymph % (Auto) [place] % (Auto) Lymph # [place] # Seg Neutrophils % APTT Sodium 147 H Potassium Chloride BUN Creatinine 0.6 L 0.6 L 0.5 L Glucose ALT Total Protein Albumin 12/30/17 12/30/17 12/31/17 08:30 08:30 07:12 RDW 15.5 H Plt Count 462 H 452 H Lymph % (Auto) [place] % (Auto) 10.1 H Lymph # [place] # 0.9 H Seg Neutrophils % 72.0 H APTT Sodium Potassium Chloride BUN Creatinine 0.6 L Glucose 103 H ALT Total Protein Albumin 12/31/17 07:12 RDW Plt Count Lymph % (Auto) [place] % (Auto) Lymph # [place] # Seg Neutrophils % APTT Sodium Potassium Chloride 95.7 L BUN Creatinine 0.6 L Glucose ALT Total Protein Albumin Chest x-ray: report reviewed (Post percutaneous needle biopsy of chest lesion reported no pneumothorax.), image reviewed
[2017-12-31] MEDS: SODIUM CHLORIDE FLUSH SYRINGE 10 ML IV SCH ×2 (16:32→21:10)
[2017-12-31] MEDS ORDERED: TPN ADULT 2,016 ML IV SCH (20:00)
[2017-12-31] MEDS: PRAVACHOL PO SCH (21:09)
--- NOTE | 2017-12-31 22:55 | Consultation ---
History of Present Illness - Reason for Consult Consult date: 12/31/17 lung lesions. Requesting physician: NICOLA GRAMAJO - History of Present Illness Thank you for this consult, patient seen/examined, records reviewed, case d/w patient. He is s/p needle pleural based lung bx, await path report.will do some bloos work also., may be mets, may be lymphoma.follow you. Past History Past Medical History: hypertension, renal failure, stroke, other (sp cath) Past Surgical History: Other (sp cath) Social history: lives with family Family history: hypertension Medications and Allergies Allergies Allergy/AdvReac Type Severity Reaction Status Date / Time No Known Allergies Allergy Verified 10/20/16 16:31 Home Medications Medication Instructions Recorded Confirmed Last Taken Type Aspirin [Lo-Dose Aspirin EC] 81 mg PO DAILY 07/23/17 12/22/17 07/20/17 09:00 History Clopidogrel Bisulfate [Plavix] 75 mg PO DAILY 07/23/17 12/22/17 07/20/17 09:00 History Lovastatin [Altoprev] 20 mg PO QPM 07/23/17 12/22/17 07/28/17 09:00 History Amoxicillin/K Clav Tab [Augmentin 1 each PO Q12HR #20 tablet 12/17/17 12/22/17 Unknown Rx 500 MG TAB] Ondansetron [Zofran ODT TAB] 8 mg PO Q8HR #20 tab.rapdis 12/17/17 12/22/17 Unknown Rx Active Meds: Active Medications Acetaminophen (Tylenol) 650 mg PO Q4H PRN PRN Reason: Pain MILD(1-3)/Fever >100.5/MINER Albuterol/Ipratropium (Duoneb *Not For Prn Use*) 1 ampul IH TIDRT [facility] Last Admin: 12/31/17 20:59 Dose: 1 ampul Aspirin (Halfprin Ec) 81 mg PO DAILY [facility] Last Admin: 12/31/17 13:38 Dose: Not Given Ceftriaxone Sodium 1 gm/ (Sodium Chloride) 20 mls @ 20 mls/10 min IV Q24H [facility]; Protocol Last Admin: 12/31/17 13:37 Dose: 20 mls/10 min Amino Acids/Electrolytes/Dextrose (Tpn Adult) 2,016 mls @ 84 mls/hr IV DAILY@ 1999 [facility]; Protocol Stop: 01/01/18 19:59 Last Admin: 12/31/17 20:57 Dose: 84 mls/hr Morphine Sulfate (Morphine) 2 mg IV Q4H PRN PRN Reason: Pain, Moderate (4-6) Ondansetron HCl (Zofran Odt) 8 mg PO Q8HR [facility] Last Admin: 12/31/17 13:38 Dose: Not Given Ondansetron HCl (Zofran) 4 mg IV Q4H PRN PRN Reason: N/V IF NPO AND NO IV ACCESS Last Admin: 12/27/17 22:35 Dose: 4 mg Oxycodone/Acetaminophen (Percocet 5/325) 1 tab PO Q6H PRN PRN Reason: Pain, Moderate (4-6) Pravastatin Sodium (Pravachol) 20 mg PO QHS [facility] Last Admin: 12/31/17 21:09 Dose: Not Given Prednisone (Deltasone) 20 mg PO QDAY [facility] Last Admin: 12/31/17 13:38 Dose: Not Given Sodium Chloride (Sodium Chloride Flush Syringe 10 Ml) 10 ml IV BID [facility] Last Admin: 12/31/17 21:10 Dose: 10 ml Sodium Chloride (Sodium Chloride Flush Syringe 10 Ml) 10 ml IV PRN PRN PRN Reason: LINE FLUSH Review of Systems Constitutional: fatigue Exam - Constitutional Vitals: Temp Pulse Resp BP Pulse Ox 100.2 F H 80 20 120/81 99 12/31/17 20:10 12/31/17 21:06 12/31/17 21:06 12/31/17 20:10 12/31/17 20:10 General appearance: Present: mild distress - EENT Eyes: Present: PERRL ENT: hearing intact, clear oral mucosa - Neck Neck: Present: supple, normal ROM - Respiratory Respiratory: bilateral: diminished - Cardiovascular Heart Sounds: Present: S1 & S2. Absent: rub, click - Extremities Extremities: pulses symmetrical, No edema Peripheral Pulses: within normal limits - Abdominal General gastrointestinal: Present: soft, non-tender, non-distended, normal bowel sounds Male genitourinary: Present: deferred - Rectal Rectal Exam: deferred - Integumentary Integumentary: Present: clear, warm, dry - Musculoskeletal Musculoskeletal: gait normal, strength equal bilaterally - Psychiatric Psychiatric: appropriate mood/affect, intact judgment & insight - Neurologic Neurologic: CNII-XII intact, moves all extremities Results - Labs CBC & Chem 7: 12/31/17 07:12 12/31/17 07:12 Labs: Abnormal lab results 12/31/17 12/31/17 Range/Units 07:12 07:12 Plt Count 452 H (140-440) K/mm3 [place] % (Auto) 10.1 H (0.0-7.3) % [place] # 0.9 H (0.0-0.8) K/mm3 Chloride 95.7 L (98-107) mmol/L Creatinine 0.6 L (0.8-1.5) mg/dL Assessment and Plan - Patient Problems (1) Pulmonary nodules Current Visit: Yes Status: Acute Plan to address problem: await bx, see orders. (2) Anemia Current Visit: Yes Status: Acute Plan to address problem: monitor labs with you.
[2018-01-01 07:19] LABS: Basophils % (Auto) 0.4 % (0.0-1.8); Eosinophils # (Auto) 0.2 K/mm3 (0.0-0.4); Eosinophils % (Auto) 1.8 % (0.0-4.3); Hematocrit 37.8 % (35.5-45.6); Hemoglobin 12.4 gm/dl (11.8-15.2); Lymphocytes # (Auto) 1.4 K/mm3 (1.2-5.4); Mean Corpuscular HGB Conc 33 % (32-34); Mean Corpuscular Hemoglobin 28 pg (28-32); Mean Corpuscular Volume 87 fl (84-94); Monocytes # (Auto) 0.8 K/mm3 (0.0-0.8); Monocytes % (Auto) 9.3 % (0.0-7.3); Platelet Count 465 K/mm3 (140-440); Red Blood Count 4.38 M/mm3 (3.65-5.03); Red Cell Distribution Width 15.2 % (13.2-15.2)
[2018-01-01 07:27] LABS: INR 0.93 (0.87-1.13)
[2018-01-01 07:42] LABS: BUN/Creatinine Ratio 30; Blood Urea Nitrogen 18 mg/dL (9-20); Calcium 9.3 mg/dL (8.4-10.2); Hemolysis Index 0
[2018-01-01] MEDS ORDERED: WATER FOR IRRIG STERILE IR ONE (09:22)
[2018-01-01] MEDS: SODIUM CHLORIDE FLUSH SYRINGE 10 ML IV SCH ×2 (09:37→22:17)
[2018-01-01] MEDS: ZOFRAN ODT PO SCH ×2 (09:37→22:16)
[2018-01-01] MEDS: DELTASONE PO SCH (09:37)
[2018-01-01] MEDS: HALFPRIN EC PO SCH (09:37)
--- NOTE | 2018-01-01 09:47 | Progress Note ---
Assessment and Plan - Patient Problems (1) Pulmonary nodules Current Visit: Yes Status: Acute Plan to address problem: await bx, see orders. See notes. (2) Anemia Current Visit: Yes Status: Acute Plan to address problem: monitor labs with you. Subjective Date of service: 01/01/18 Principal diagnosis: dysphagia, n/v Interval history: patient seen/examined, resting in bed, path report confirms adeno CA metastatic.[facility] hospice is apropiate. Objective - Constitutional General appearance: Present: mild distress, well-nourished - EENT Eyes: PERRL, EOM intact ENT: hearing intact, clear oral mucosa Ears: bilateral: normal - Neck Neck: supple, normal ROM - Respiratory Respiratory effort: normal Respiratory: bilateral: CTA - Breasts Breasts: deferred - Cardiovascular Rhythm: regular Heart Sounds: Present: S1 & S2. Absent: gallop, rub Extremities: pulses intact, No edema, normal color, Full ROM - Gastrointestinal General gastrointestinal: Present: soft, non-tender, non-distended, normal bowel sounds - Genitourinary Male genitourinary: deferred - Integumentary Integumentary: clear, warm, dry - Musculoskeletal Musculoskeletal: 1, strength equal bilaterally - Neurologic Neurologic: moves all extremities - Psychiatric Psychiatric: memory intact, appropriate mood/affect, intact judgment & insight - Labs CBC & Chem 7: 01/01/18 06:40 01/01/18 06:40 Labs: Abnormal lab results 01/01/18 01/01/18 Range/Units 06:40 06:40 Plt Count 465 H (140-440) K/mm3 [place] % (Auto) 9.3 H (0.0-7.3) % Seg Neutrophils % 72.5 H (40.0-70.0) % Creatinine 0.6 L (0.8-1.5) mg/dL
--- NOTE | 2018-01-01 11:01 | Anesthesia Consultation ---
Anesthesia Consult and Med Hx Date of service: 01/01/18 - Airway Anesthetic Teeth Evaluation: Poor ROM Head & Neck: Adequate Mental/Hyoid Distance: Adequate Mallampati Class: Class II Intubation Access Assessment: Probably Good - Pulmonary Exam CTA: No (kelly rodriges) - Cardiac Exam Cardiac Exam: RRR - Pre-Operative Health Status ASA Pre-Surgery Classification: ASA4 Proposed Anesthetic Plan: MAC - Pre-Anesthesia Comment Pre-Anesthesia Comments: pulmonary nodules, indwelling cath - Pulmonary Hx Smoking: Yes (STOPPED 2015) Hx Respiratory Symptoms: Yes (bloody sputum ) SOB: Yes COPD: Yes Hx Pneumonia: Yes - Cardiovascular System Hx Hypertension: Yes (NO MEDS ) - Central Nervous System CVA: Yes (5 YRS AGO, LEFT SIDED WEAKNESS) - Other Systems Hx Cancer: Yes (Lung )
[2018-01-01] MEDS: DUONEB *Not for PRN Use IH SCH ×3 (11:08→19:50)
--- NOTE | 2018-01-01 11:14 | Anesthesia Day of Surgery ---
Anesthesia Day of Surgery - Day of Surgery Patient Examined: Yes Patient H&P Reviewed: Yes Patient is NPO: Yes
[2018-01-01] MEDS ORDERED: NACL 0.9% 1000 ML 1,000 ML ONE (11:15)
[2018-01-01] MEDS ORDERED: DIPRIVAN 10 MG/ML IV ONE (11:48)
[2018-01-01] MEDS ORDERED: ROBINUL ONE (11:49)
--- NOTE | 2018-01-01 12:18 | Post Operative Note ---
Pre-op diagnosis: oropharyngeal dysphagia Post-op diagnosis: same (successful PEG tube placement) Findings: EGD with PEG tube placement Procedure: EGD with PEG tube placement Anesthesia: MAC Surgeon: GENIA CROSS Estimated blood loss: minimal Pathology: none Condition: stable Disposition: floor
--- NOTE | 2018-01-01 12:22 | Operative Report ---
Operative Report Operative Report: Esophagogastroduodenoscopy with PEG tube placement Date of procedure: 01/01/2018 Endoscopist: Nikos Tsai Pre-op diagnosis/indication: Oropharyngeal dysphagia Post-op diagnosis: Successful PEG tube placement MEDICATIONS: MAC, ancef 2 gm COMPLICATIONS: No immediate complications ESTIMATED BLOOD LOSS: minimal DESCRIPTION OF PROCEDURE: After consent was obtained, the patient was placed in the left lateral decubitis position. The upper olympus endoscope was passed with direct vision through the mouth and advanced to the 2nd portion of the duodenum. The mucosal views were good. The patient tolerated the procedure fairly well. The stomach was transilluminated and an optimal position for the PEG tube was identified using finger indentation and transillumination. The site was sterilized in standard fashion. The skin was infiltrated with local (lidocaine) , and incision was made, followed insertion of needle and sheath through the abdomen and into the stomach. The needle was removed and a guidewire was inserted through the sheath. The guidewire was grasped with a snare and removed completely. 20 Fr PEG tube was attached to guidewire, then pulled through the mouth and esophagus and snug to the abdominal wall. FINDINGS: Unremarkable upper endoscopy. Successful PEG tube placement as detailed above. External bumper at 3 cm. IMPRESSION: 1. Successful PEG tube placement as above RECOMMENDATIONS: -consult nutrition regarding tube feed recommendations -okay to start using peg tube for medications in 2 hours, and can start tube feeds in 6 hours if no complications -keep abdominal binder on at all times -post PEG care daily
--- NOTE | 2018-01-01 13:21 | Progress Note ---
Assessment and Plan Assessment and plan: Lung CA-- s/p CT guided biopsy, pathology positive for malignant cells Pulmonary following Oncology following Severe Oropharyngeal Dysphagia: Modified barium swallow showed severe oropharyngeal dysphagia Continue nothing by mouth started on PPN GI placed PEG today Start TF per Oil Dipper Bilateral penumonia: likely aspiration pneumonia cont abx Pulmonary Nodule/left lower lobe pleural-based mass PPD and sputum for AFB CT guided biopsy completed. COPD: Continue nebulizer treatments as needed HTN: Well-controlled, patient is not on any home medications for his blood pressure ?? 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 However he is able to ambulate with the help of a cane as the power in the left lower extremity is about 4 / 5 DVT prophylaxis: HSQ Disposition. Anticipate D/C in am History Interval history: The patient is a 57-year-old male with hx of previous stroke, left hemiparesis, HTN, indewelling canales catheter, presenting with a chief complaint of cough and congestion and inablity to keep food down with persistent nausea and vomiting. The patient was recently in the hospital 12/17/2017 for chest congestion and productive cough, was diagnosed with PNA .Family states the patient's congestion persists. Patient continues to have a productive cough which leads to posttussive emesis. Patient is unable to keep any food down since his last visit. 12/25 A&O, NAD, denies pain, denies fever, chills, cough is better, denies N/V or abd. pain 12/26 resting, no apparent distress, spitting up mucoid secretions, there was no blood in the container, but apparently patient coughed up blood per discussion with speech therapist. She also has a requested a modified barium swallow and recommended patient to be nothing by mouth. Pt with PEG placement today Hospitalist Physical - Constitutional Vitals: Temp Pulse Resp BP Pulse Ox 97.9 F 78 18 127/90 99 01/01/18 10:45 01/01/18 10:45 01/01/18 10:45 01/01/18 10:45 01/01/18 10:45 General appearance: Present: mild distress, well-nourished - EENT Eyes: Present: PERRL, EOM intact ENT: hearing intact, clear oral mucosa, dentition normal - Neck Neck: Present: supple, normal ROM - Respiratory Respiratory effort: normal Respiratory: bilateral: CTA - Cardiovascular Rhythm: regular Heart Sounds: Present: S1 & S2. Absent: gallop, rub - Extremities Extremities: no ischemia, No edema, Full ROM - Abdominal General gastrointestinal: soft, non-tender, non-distended, normal bowel sounds - Integumentary Integumentary: Present: clear, warm, dry - Neurologic Neurologic: CNII-XII intact, moves all extremities Results - Labs CBC & Chem 7: 01/01/18 06:40 01/01/18 06:40 Labs: Laboratory Last Values WBC 8.9 K/mm3 (4.5-11.0) 01/01/18 06:40 RBC 4.38 M/mm3 (3.65-5.03) 01/01/18 06:40 Hgb 12.4 gm/dl (11.8-15.2) 01/01/18 06:40 Hct 37.8 % (35.5-45.6) 01/01/18 06:40 MCV 87 fl (84-94) 01/01/18 06:40 MCH 28 pg (28-32) 01/01/18 06:40 MCHC 33 % (32-34) 01/01/18 06:40 RDW 15.2 % (13.2-15.2) 01/01/18 06:40 Plt Count 465 K/mm3 (140-440) H 01/01/18 06:40 Lymph % (Auto) 16.0 % (13.4-35.0) 01/01/18 06:40 [place] % (Auto) 9.3 % (0.0-7.3) H 01/01/18 06:40 Eos % (Auto) 1.8 % (0.0-4.3) 01/01/18 06:40 Baso % (Auto) 0.4 % (0.0-1.8) 01/01/18 06:40 Lymph # 1.4 K/mm3 (1.2-5.4) 01/01/18 06:40 [place] # 0.8 K/mm3 (0.0-0.8) 01/01/18 06:40 Eos # 0.2 K/mm3 (0.0-0.4) 01/01/18 06:40 Baso # 0.0 K/mm3 (0.0-0.1) 01/01/18 06:40 Seg Neutrophils % 72.5 % (40.0-70.0) H 01/01/18 06:40 Seg Neutrophils # 6.5 K/mm3 (1.8-7.7) 01/01/18 06:40 ESR 49 mm/Hr (0-20) 12/31/17 23:10 PT 12.9 Sec. (12.2-14.9) 01/01/18 06:40 INR 0.93 (0.87-1.13) 01/01/18 06:40 APTT 39.1 Sec. (24.2-36.6) H 12/22/17 11:27 Sodium 138 mmol/L (137-145) 01/01/18 06:40 Potassium 4.7 mmol/L (3.6-5.0) 01/01/18 06:40 Chloride 98.7 mmol/L (98-107) 01/01/18 06:40 Carbon Dioxide 26 mmol/L (22-30) 01/01/18 06:40 Anion Gap 18 mmol/L 01/01/18 06:40 BUN 18 mg/dL (9-20) 01/01/18 06:40 Creatinine 0.6 mg/dL (0.8-1.5) L 01/01/18 06:40 Estimated GFR > 60 ml/min 01/01/18 06:40 BUN/Creatinine Ratio 30 % 01/01/18 06:40 Glucose 96 mg/dL (75-100) 01/01/18 06:40 POC Glucose 82 (70-105) 01/01/18 05:13 Hemoglobin A1c 5.6 % (4-6) 12/22/17 20:56 Calcium 9.3 mg/dL (8.4-10.2) 01/01/18 06:40 Phosphorus 3.70 mg/dL (2.5-4.5) 01/01/18 06:40 Magnesium 2.10 mg/dL (1.7-2.3) 01/01/18 06:40 Total Bilirubin 0.30 mg/dL (0.1-1.2) 12/27/17 08:56 AST 9 units/L (5-40) 12/27/17 08:56 ALT < 5 units/L (7-56) L 12/27/17 08:56 Alkaline Phosphatase 77 units/L (35-129) 12/27/17 08:56 Lactate Dehydrogenase 149 units/L (91-180) 12/31/17 23:10 C-Reactive Protein 1.10 mg/dL (0.00-1.30) 12/31/17 23:10 Total Protein 6.6 g/dL (6.3-8.2) 12/27/17 08:56 Albumin 3.4 g/dL (3.9-5) L 12/27/17 08:56 Albumin/Globulin Ratio 1.1 % 12/27/17 08:56 Lipase 22 units/L (13-60) 12/22/17 11:27 Blood Type O POSITIVE 12/22/17 11:22 Antibody Screen Negative 12/22/17 11:22
[2018-01-01] MEDS: cefTRIAXone 1 GM in NACL 0.9% 20 ML IV SCH (13:27)
--- NOTE | 2018-01-01 13:44 | Progress Note ---
Assessment and Plan .Patient awake and weak. On room air.O2 saturation 94%. Patient Undergone percutaneous needle biopsy of chest lesion.Reported malignant cell present with necrosis. Oncology consulted. Recommend metastatic work up.. - Patient Problems (1) Hemoptysis Current Visit: Yes Status: Acute Plan to address problem: Patient denies hemoptysis. Lung nodules reported malignancy. Sputum AFB x1 reported negative. (2) Pulmonary nodules Current Visit: Yes Status: Acute Plan to address problem: Patient undergone percutaneous needle biopsy of chest lesion. Reported positive for malignant cells. Consulted oncology. Subjective Date of service: 01/01/18 Principal diagnosis: dysphagia, n/v Interval history: Patient awake and weak. On room air.O2 saturation 94%. Patient Undergone percutaneous needle biopsy of chest lesion.Reported malignant cell present with necrosis. Oncology consulted. Recommend metastatic work up.. Objective Vital Signs - 12hr 01/01/18 01/01/18 08:19 10:45 Temperature 98.7 F 97.9 F Pulse Rate 73 78 Respiratory 20 18 Rate Blood Pressure 123/87 127/90 O2 Sat by Pulse 99 99 Oximetry Constitutional: no acute distress, alert, other (Weak and debilitated.) Eyes: non-icteric ENT: oropharynx moist Neck: supple, no lymphadenopathy Effort: normal Ascultation: Bilateral: rhonchi Cardiovascular: regular rate and rhythm Gastrointestinal: normoactive bowel sounds, soft, non-tender Integumentary: normal Extremities: no cyanosis, no edema Neurologic: other (Left sided hemiplegia.) Psychiatric: mood appropriate CBC and BMP: 01/01/18 06:40 01/01/18 06:40 ABG, PT/INR, D-dimer: PT/INR, D-dimer PT 12.9 Sec. (12.2-14.9) 01/01/18 06:40 INR 0.93 (0.87-1.13) 01/01/18 06:40 Abnormal lab findings: Abnormal Labs 12/22/17 12/22/17 12/22/17 11:27 11:27 11:27 RDW 15.5 H Plt Count 508 H Lymph % (Auto) [place] % (Auto) Lymph # [place] # Seg Neutrophils % 76.6 H APTT 39.1 H Sodium Potassium Chloride BUN 5 L Creatinine 0.7 L Glucose ALT Total Protein 8.5 H Albumin 12/23/17 12/23/1718 05:52 05:52 08:56 RDW Plt Count 469 H Lymph % (Auto) 7.9 L [place] % (Auto) Lymph # 0.4 L [place] # Seg Neutrophils % 90.0 H APTT Sodium Potassium 3.5 L Chloride BUN 6 L 7 L Creatinine 0.6 L 0.7 L Glucose 113 H ALT 5 L < 5 L Total Protein Albumin 3.5 L 3.4 L 12/28/17 12/28/17 12/29/17 13:31 13:31 07:04 RDW Plt Count Lymph % (Auto) [place] % (Auto) Lymph # [place] # Seg Neutrophils % APTT Sodium 147 H Potassium Chloride BUN Creatinine 0.6 L 0.6 L 0.5 L Glucose ALT Total Protein Albumin 12/30/17 12/30/17 12/31/17 08:30 08:30 07:12 RDW 15.5 H Plt Count 462 H 452 H Lymph % (Auto) [place] % (Auto) 10.1 H Lymph # [place] # 0.9 H Seg Neutrophils % 72.0 H APTT Sodium Potassium Chloride BUN Creatinine 0.6 L Glucose 103 H ALT Total Protein Albumin 12/31/17 01/01/18 01/01/18 07:12 06:40 06:40 RDW Plt Count 465 H Lymph % (Auto) [place] % (Auto) 9.3 H Lymph # [place] # Seg Neutrophils % 72.5 H APTT Sodium Potassium Chloride 95.7 L BUN Creatinine 0.6 L 0.6 L Glucose ALT Total Protein Albumin
[2018-01-01] MEDS ORDERED: PANCREAZE DR 10,500 UNIT FEEDTUBE PRN (14:14)
[2018-01-01] MEDS ORDERED: SODIUM BICARBONATE FEEDTUBE PRN (14:14)
[2018-01-01] MEDS ORDERED: SIMPLE SYRUP FEEDTUBE PRN ×2 (14:14)
[2018-01-01] MEDS ORDERED: TPN ADULT 2,016 ML IV SCH (20:00)
[2018-01-01] MEDS: ZOFRAN IV PRN (22:20)
[2018-01-02] MEDS: PRAVACHOL PO SCH ×2 (05:12→23:03)
[2018-01-02] MEDS: DUONEB *Not for PRN Use IH SCH ×3 (08:47→20:54)
[2018-01-02] MEDS: DELTASONE PO SCH (10:26)
[2018-01-02] MEDS: ZOFRAN ODT PO SCH ×2 (10:26→13:20)
[2018-01-02] MEDS: HALFPRIN EC PO SCH (10:26)
[2018-01-02] MEDS: SODIUM CHLORIDE FLUSH SYRINGE 10 ML IV SCH ×2 (10:26→23:02)
[2018-01-02 11:18] LABS: Basophils # (Auto) 0.1 K/mm3 (0.0-0.1); Basophils % (Auto) 0.7 % (0.0-1.8); Eosinophils # (Auto) 0.1 K/mm3 (0.0-0.4); Eosinophils % (Auto) 0.9 % (0.0-4.3); Hemoglobin 12.4 gm/dl (11.8-15.2); Lymphocytes # (Auto) 1.1 K/mm3 (1.2-5.4); Mean Corpuscular HGB Conc 34 % (32-34); Mean Corpuscular Hemoglobin 29 pg (28-32); Mean Corpuscular Volume 87 fl (84-94); Monocytes # (Auto) 0.9 K/mm3 (0.0-0.8); Monocytes % (Auto) 9.5 % (0.0-7.3); Platelet Count 400 K/mm3 (140-440); Red Blood Count 4.23 M/mm3 (3.65-5.03); Red Cell Distribution Width 15.4 % (13.2-15.2)
[2018-01-02 11:32] LABS: BUN/Creatinine Ratio 17; Blood Urea Nitrogen 15 mg/dL (9-20); Calcium 9.2 mg/dL (8.4-10.2); Hemolysis Index 13
[2018-01-02] MEDS: cefTRIAXone 1 GM in NACL 0.9% 20 ML IV SCH (12:26)
--- NOTE | 2018-01-02 13:13 | Progress Note ---
Assessment and Plan Abnormal CT Chest with LLL Lung nodules Lung CA (pending immunostains) Severe Oropharyngeal Dysphagia Aspiration Pneumonia COPD H/O CVA Adult FTT - oncology consult placed - follow final immunostains and classification - metastatic w/up - continue aspiration precautioons - s/p PEG - enteral nutrition as tolerated - AFB smear negative (doubt TB) - continue GI & VTE prophylaxis - prn H&H - continue aspiration precautions - continue other care per attending / other consultants ... 25' Subjective Date of service: 01/02/18 Principal diagnosis: Abnormal CT Chest; Lung Nodules; Oropharyngeal Dysphagia; S /P CVA Interval history: Patient is seen today for: Abnormal CT Chest; Lung Nodules; Oropharyngeal Dysphagia; S/P CVA Seen and examined at bedside; 24hour events reviewed; nursing and respiratory care staff consulted; no adverse overnight events reported to me; resting in bed; in droplet precautions; CT biopsy pathology is consistent with NSCLC; no emesis or overt aspiration Objective Vital Signs - 12hr 01/02/18 01/02/18 01/02/18 07:51 08:00 11:06 Temperature 99.0 F Pulse Rate 95 H Pulse Rate [ 86 92 H Anterior Bilateral Throughout] Respiratory 16 Rate Respiratory 15 17 Rate [Anterior Bilateral Throughout] Blood Pressure 127/80 O2 Sat by Pulse 99 Oximetry Constitutional: no acute distress, alert, other (Weak and debilitated.) Eyes: non-icteric ENT: oropharynx moist Neck: supple, no lymphadenopathy Effort: normal Ascultation: Bilateral: rhonchi Percussion: Bilateral: not dull Cardiovascular: regular rate and rhythm, other (No R/M) Gastrointestinal: normoactive bowel sounds, soft, non-tender Integumentary: normal Extremities: no cyanosis, no edema Neurologic: pupils equal and round, other (Left sided hemiplegia.) Psychiatric: mood appropriate, anxious CBC and BMP: 01/03/18 08:47 01/03/18 08:47 ABG, PT/INR, D-dimer: PT/INR, D-dimer PT 12.9 Sec. (12.2-14.9) 01/01/18 06:40 INR 0.93 (0.87-1.13) 01/01/18 06:40 Abnormal lab findings: Abnormal Labs 12/22/17 12/22/17 12/22/17 11:27 11:27 11:27 RDW 15.5 H Plt Count 508 H Lymph % (Auto) [place] % (Auto) Lymph # [place] # Seg Neutrophils % 76.6 H APTT 39.1 H Sodium Potassium Chloride Carbon Dioxide BUN 5 L Creatinine 0.7 L Glucose ALT Total Protein 8.5 H Albumin 12/23/17 12/23/17 12/27/17 05:52 05:52 08:56 RDW Plt Count 469 H Lymph % (Auto) 7.9 L [place] % (Auto) Lymph # 0.4 L [place] # Seg Neutrophils % 90.0 H APTT Sodium Potassium 3.5 L Chloride Carbon Dioxide BUN 6 L 7 L Creatinine 0.6 L 0.7 L Glucose 113 H ALT 5 L < 5 L Total Protein Albumin 3.5 L 3.4 L 12/28/17 12/28/17 12/29/17 13:31 13:31 07:04 RDW Plt Count Lymph % (Auto) [place] % (Auto) Lymph # [place] # Seg Neutrophils % APTT Sodium 147 H Potassium Chloride Carbon Dioxide BUN Creatinine 0.6 L 0.6 L 0.5 L Glucose ALT Total Protein Albumin 12/30/17 12/30/17 12/31/17 08:30 08:30 07:12 RDW 15.5 H Plt Count 462 H 452 H Lymph % (Auto) [place] % (Auto) 10.1 H Lymph # [place] # 0.9 H Seg Neutrophils % 72.0 H APTT Sodium Potassium Chloride Carbon Dioxide BUN Creatinine 0.6 L Glucose 103 H ALT Total Protein Albumin 12/31/17 01/01/18 01/01/18 07:12 06:40 06:40 RDW Plt Count 465 H Lymph % (Auto) [place] % (Auto) 9.3 H Lymph # [place] # Seg Neutrophils % 72.5 H APTT Sodium Potassium Chloride 95.7 L Carbon Dioxide BUN Creatinine 0.6 L 0.6 L Glucose ALT Total Protein Albumin 01/02/18 01/02/18 10:34 10:34 RDW 15.4 H Plt Count Lymph % (Auto) 12.0 L [place] % (Auto) 9.5 H Lymph # 1.1 L [place] # 0.9 H Seg Neutrophils % 76.9 H APTT Sodium 136 L Potassium Chloride 93.8 L Carbon Dioxide 21 L BUN Creatinine Glucose 125 H ALT Total Protein Albumin CT scan - chest: image reviewed (LLL multiple nodules) Allied health notes reviewed: nursing
--- NOTE | 2018-01-02 13:29 | Progress Note ---
Assessment and Plan 1. s/p PEG placement - doing well. Will sign off. Subjective Date of service: 01/02/18 Principal diagnosis: dysphagia, n/v Interval history: Pt yudi TF well. No abd pain. Objective - Constitutional Vitals: Vital Signs - 12hr 01/02/18 01/02/18 01/02/18 07:51 08:00 11:06 Temperature 99.0 F Pulse Rate 95 H Pulse Rate [ 86 92 H Anterior Bilateral Throughout] Respiratory 16 Rate Respiratory 15 17 Rate [Anterior Bilateral Throughout] Blood Pressure 127/80 O2 Sat by Pulse 99 Oximetry General appearance: Present: no acute distress, cachectic - EENT Eyes: PERRL, EOM intact ENT: hearing intact - Respiratory Respiratory effort: normal - Gastrointestinal General gastrointestinal: Present: soft, non-tender, other (G-tube site clean, NT.) - Labs CBC & Chem 7: 01/02/18 10:34 01/02/18 10:34 Labs: Abnormal lab results 01/02/18 01/02/18 Range/Units 10:34 10:34 RDW 15.4 H (13.2-15.2) % Lymph % (Auto) 12.0 L (13.4-35.0) % [place] % (Auto) 9.5 H (0.0-7.3) % Lymph # 1.1 L (1.2-5.4) K/mm3 [place] # 0.9 H (0.0-0.8) K/mm3 Seg Neutrophils % 76.9 H (40.0-70.0) % Sodium 136 L (137-145) mmol/L Chloride 93.8 L (98-107) mmol/L Carbon Dioxide 21 L (22-30) mmol/L Glucose 125 H (75-100) mg/dL
--- NOTE | 2018-01-02 18:57 | Progress Note ---
Assessment and Plan - Patient Problems (1) Lung cancer Current Visit: Yes Status: Acute Plan to address problem: Lung cancer CT scan positive for malignant cells oncology following recommended hospice. Plan is to shelter with hospice on Thursday. (2) Dysphagia Current Visit: Yes Status: Acute (3) Pulmonary nodules Current Visit: Yes Status: Acute Plan to address problem: Her nodules lymphadenopathy most likely neoplastic process. (4) Unable to eat Current Visit: Yes Status: Acute Plan to address problem: Patient with dysphagia oral pharyngeal dysphagia nothing by mouth PPN PEG tube feedings possibility. (5) Pneumonia Current Visit: Yes Status: Acute Plan to address problem: She will bilateral pneumonia secondary to aspiration. Continue antibodies continue nebulizers for COPD. (6) Hypertension Current Visit: Yes Status: Acute Plan to address problem: At present well controlled. Continue current antihypertensives. History Interval history: Patient in bed resting comfortably. Pain is controlled. Vomiting. No nausea this time. Total course overnight unremarkable. Hospitalist Physical - Constitutional Vitals: Temp Pulse Resp BP Pulse Ox 98.9 F 101 H 18 135/96 95 01/02/18 16:00 01/02/18 16:00 01/02/18 16:00 01/02/18 16:00 01/02/18 16:00 General appearance: Present: no acute distress, cachectic - EENT Eyes: Present: PERRL, EOM intact - Neck Neck: Present: supple, normal ROM - Respiratory Respiratory: bilateral: diminished, wheezing - Cardiovascular Rhythm: regular - Extremities Extremities: no ischemia, pulses intact, No edema Extremity abnormal: other Peripheral Pulses: within normal limits (generalized weakness) - Abdominal General gastrointestinal: soft, non-distended, normal bowel sounds - Psychiatric Psychiatric: appropriate mood/affect, depressed, other - Neurologic Neurologic: CNII-XII intact, moves all extremities (flat affect) Results - Labs CBC & Chem 7: 01/02/18 10:34 01/02/18 10:34 Labs: Laboratory Last Values WBC 9.6 K/mm3 (4.5-11.0) 01/02/18 10:34 RBC 4.23 M/mm3 (3.65-5.03) 01/02/18 10:34 Hgb 12.4 gm/dl (11.8-15.2) 01/02/18 10:34 Hct 37.0 % (35.5-45.6) 01/02/18 10:34 MCV 87 fl (84-94) 01/02/18 10:34 MCH 29 pg (28-32) 01/02/18 10:34 MCHC 34 % (32-34) 01/02/18 10:34 RDW 15.4 % (13.2-15.2) H 01/02/18 10:34 Plt Count 400 K/mm3 (140-440) 01/02/18 10:34 Lymph % (Auto) 12.0 % (13.4-35.0) L 01/02/18 10:34 [place] % (Auto) 9.5 % (0.0-7.3) H 01/02/18 10:34 Eos % (Auto) 0.9 % (0.0-4.3) 01/02/18 10:34 Baso % (Auto) 0.7 % (0.0-1.8) 01/02/18 10:34 Lymph # 1.1 K/mm3 (1.2-5.4) L 01/02/18 10:34 [place] # 0.9 K/mm3 (0.0-0.8) H 01/02/18 10:34 Eos # 0.1 K/mm3 (0.0-0.4) 01/02/18 10:34 Baso # 0.1 K/mm3 (0.0-0.1) 01/02/18 10:34 Seg Neutrophils % 76.9 % (40.0-70.0) H 01/02/18 10:34 Seg Neutrophils # 7.4 K/mm3 (1.8-7.7) 01/02/18 10:34 ESR 49 mm/Hr (0-20) 12/31/17 23:10 PT 12.9 Sec. (12.2-14.9) 01/01/18 06:40 INR 0.93 (0.87-1.13) 01/01/18 06:40 APTT 39.1 Sec. (24.2-36.6) H 12/22/17 11:27 Sodium 136 mmol/L (137-145) L 01/02/18 10:34 Potassium 4.4 mmol/L (3.6-5.0) 01/02/18 10:34 Chloride 93.8 mmol/L (98-107) L 01/02/18 10:34 Carbon Dioxide 21 mmol/L (22-30) L 01/02/18 10:34 Anion Gap 26 mmol/L 01/02/18 10:34 BUN 15 mg/dL (9-20) 01/02/18 10:34 Creatinine 0.9 mg/dL (0.8-1.5) 01/02/18 10:34 Estimated GFR > 60 ml/min 01/02/18 10:34 BUN/Creatinine Ratio 17 % 01/02/18 10:34 Glucose 125 mg/dL (75-100) H 01/02/18 10:34 POC Glucose 102 (70-105) 01/02/18 11:54 Hemoglobin A1c 5.6 % (4-6) 12/22/17 20:56 Calcium 9.2 mg/dL (8.4-10.2) 01/02/18 10:34 Phosphorus 3.70 mg/dL (2.5-4.5) 01/01/18 06:40 Magnesium 2.10 mg/dL (1.7-2.3) 01/01/18 06:40 Total Bilirubin 0.30 mg/dL (0.1-1.2) 12/27/17 08:56 AST 9 units/L (5-40) 12/27/17 08:56 ALT < 5 units/L (7-56) L 12/27/17 08:56 Alkaline Phosphatase 77 units/L (35-129) 12/27/17 08:56 Lactate Dehydrogenase 149 units/L (91-180) 12/31/17 23:10 C-Reactive Protein 1.10 mg/dL (0.00-1.30) 12/31/17 23:10 Total Protein 6.6 g/dL (6.3-8.2) 12/27/17 08:56 Albumin 3.4 g/dL (3.9-5) L 12/27/17 08:56 Albumin/Globulin Ratio 1.1 % 12/27/17 08:56 Lipase 22 units/L (13-60) 12/22/17 11:27 Blood Type O POSITIVE 12/22/17 11:22 Antibody Screen Negative 12/22/17 11:22
[2018-01-02] MEDS ORDERED: TPN ADULT 2,016 ML IV SCH (20:00)
[2018-01-03 09:43] LABS: Basophils % (Auto) 0.5 % (0.0-1.8); Eosinophils # (Auto) 0.1 K/mm3 (0.0-0.4); Eosinophils % (Auto) 0.5 % (0.0-4.3); Hematocrit 33.9 % (35.5-45.6); Hemoglobin 11.4 gm/dl (11.8-15.2); Lymphocytes # (Auto) 0.9 K/mm3 (1.2-5.4); Lymphocytes % (Auto) 9.5 % (13.4-35.0); Mean Corpuscular HGB Conc 34 % (32-34); Mean Corpuscular Hemoglobin 29 pg (28-32); Mean Corpuscular Volume 87 fl (84-94); Monocytes % (Auto) 9.9 % (0.0-7.3); Platelet Count 401 K/mm3 (140-440); Red Cell Distribution Width 15.4 % (13.2-15.2)
[2018-01-03 09:50] LABS: BUN/Creatinine Ratio 30; Blood Urea Nitrogen 18 mg/dL (9-20); Calcium 9.2 mg/dL (8.4-10.2); Hemolysis Index 0
[2018-01-03] MEDS: DUONEB *Not for PRN Use IH SCH ×3 (10:55→20:39)
[2018-01-03] MEDS: HALFPRIN EC PO SCH (11:57)
[2018-01-03] MEDS: DELTASONE PO SCH (11:57)
[2018-01-03] MEDS: SODIUM CHLORIDE FLUSH SYRINGE 10 ML IV SCH ×2 (11:58→22:00)
--- NOTE | 2018-01-03 13:42 | Progress Note ---
Assessment and Plan - Patient Problems (1) Lung cancer Current Visit: Yes Status: Acute Plan to address problem: Lung cancer CT scan positive for malignant cells oncology following recommended hospice. [facility]. (2) Dysphagia Current Visit: Yes Status: Acute (3) Pulmonary nodules Current Visit: Yes Status: Acute Plan to address problem: Her nodules lymphadenopathy most likely neoplastic process. (4) Unable to eat Current Visit: Yes Status: Acute Plan to address problem: Patient with dysphagia oral pharyngeal dysphagia nothing by mouth PPN PEG tube feedings possibility. (5) Pneumonia Current Visit: Yes Status: Acute Plan to address problem: She will bilateral pneumonia secondary to aspiration. Continue antibodies continue nebulizers for COPD. no further evidence of pneumonia at this particular time. He does have coughing but mostly from nausea and just spitting. We'll add Zofran. (6) Hypertension Current Visit: Yes Status: Acute Plan to address problem: At present well controlled. Continue current antihypertensives. History Interval history: At present patient not vomiting he is alert more so spitting up. Thinks secondary to nausea. Patient looks cachectic anorexic. Hospitalist Physical - Constitutional Vitals: Temp Pulse Resp BP Pulse Ox 99.1 F 87 18 109/83 96 01/03/18 07:37 01/03/18 07:37 01/03/18 07:37 01/03/18 07:37 01/03/18 07:37 General appearance: Present: no acute distress, mild distress, cachectic - EENT Eyes: Present: PERRL, EOM intact ENT: hearing intact, dentition normal, poor dentition - Neck Neck: Present: supple, normal ROM - Respiratory Respiratory: bilateral: diminished (poor inspiratory effort) - Cardiovascular Rhythm: regular - Extremities Extremities: no ischemia, pulses intact, pulses symmetrical, No edema, normal temperature - Abdominal General gastrointestinal: soft, non-tender, hypoactive bowel sounds - Integumentary Integumentary: Present: clear, warm, dry - Psychiatric Psychiatric: appropriate mood/affect, other (poor cognition flat affect and does not think he is depressed right now.) - Neurologic Neurologic: CNII-XII intact, moves all extremities Results - Labs CBC & Chem 7: 01/03/18 08:47 01/03/18 08:47 Labs: Laboratory Last Values WBC 9.7 K/mm3 (4.5-11.0) 01/03/18 08:47 RBC 3.90 M/mm3 (3.65-5.03) 01/03/18 08:47 Hgb 11.4 gm/dl (11.8-15.2) L 01/03/18 08:47 Hct 33.9 % (35.5-45.6) L 01/03/18 08:47 MCV 87 fl (84-94) 01/03/18 08:47 MCH 29 pg (28-32) 01/03/18 08:47 MCHC 34 % (32-34) 01/03/18 08:47 RDW 15.4 % (13.2-15.2) H 01/03/18 08:47 Plt Count 401 K/mm3 (140-440) 01/03/18 08:47 Lymph % (Auto) 9.5 % (13.4-35.0) L 01/03/18 08:47 [place] % (Auto) 9.9 % (0.0-7.3) H 01/03/18 08:47 Eos % (Auto) 0.5 % (0.0-4.3) 01/03/18 08:47 Baso % (Auto) 0.5 % (0.0-1.8) 01/03/18 08:47 Lymph # 0.9 K/mm3 (1.2-5.4) L 01/03/18 08:47 [place] # 1.0 K/mm3 (0.0-0.8) H 01/03/18 08:47 Eos # 0.1 K/mm3 (0.0-0.4) 01/03/18 08:47 Baso # 0.0 K/mm3 (0.0-0.1) 01/03/18 08:47 Seg Neutrophils % 79.6 % (40.0-70.0) H 01/03/18 08:47 Seg Neutrophils # 7.7 K/mm3 (1.8-7.7) 01/03/18 08:47 ESR 49 mm/Hr (0-20) 12/31/17 23:10 PT 12.9 Sec. (12.2-14.9) 01/01/18 06:40 INR 0.93 (0.87-1.13) 01/01/18 06:40 APTT 39.1 Sec. (24.2-36.6) H 12/22/17 11:27 Sodium 136 mmol/L (137-145) L 01/03/18 08:47 Potassium 4.3 mmol/L (3.6-5.0) 01/03/18 08:47 Chloride 96.0 mmol/L (98-107) L 01/03/18 08:47 Carbon Dioxide 27 mmol/L (22-30) 01/03/18 08:47 Anion Gap 17 mmol/L 01/03/18 08:47 BUN 18 mg/dL (9-20) 01/03/18 08:47 Creatinine 0.6 mg/dL (0.8-1.5) L 01/03/18 08:47 Estimated GFR > 60 ml/min 01/03/18 08:47 BUN/Creatinine Ratio 30 % 01/03/18 08:47 Glucose 105 mg/dL (75-100) H 01/03/18 08:47 POC Glucose 102 (70-105) 01/02/18 11:54 Hemoglobin A1c 5.6 % (4-6) 12/22/17 20:56 Calcium 9.2 mg/dL (8.4-10.2) 01/03/18 08:47 Phosphorus 3.60 mg/dL (2.5-4.5) 01/03/18 08:47 Magnesium 2.10 mg/dL (1.7-2.3) 01/03/18 08:47 Total Bilirubin 0.30 mg/dL (0.1-1.2) 12/27/17 08:56 AST 9 units/L (5-40) 12/27/17 08:56 ALT < 5 units/L (7-56) L 12/27/17 08:56 Alkaline Phosphatase 77 units/L (35-129) 12/27/17 08:56 Lactate Dehydrogenase 149 units/L (91-180) 12/31/17 23:10 C-Reactive Protein 1.10 mg/dL (0.00-1.30) 12/31/17 23:10 Total Protein 6.6 g/dL (6.3-8.2) 12/27/17 08:56 Albumin 3.4 g/dL (3.9-5) L 12/27/17 08:56 Albumin/Globulin Ratio 1.1 % 12/27/17 08:56 Lipase 22 units/L (13-60) 12/22/17 11:27 Blood Type O POSITIVE 12/22/17 11:22 Antibody Screen Negative 12/22/17 11:22
[2018-01-03] MEDS: ZOFRAN IV PRN (14:00)
[2018-01-03] MEDS: cefTRIAXone 1 GM in NACL 0.9% 20 ML IV SCH (14:00)
[2018-01-03] MEDS ORDERED: PANCREAZE DR 10,500 UNIT FEEDTUBE PRN (14:20)
[2018-01-03] MEDS ORDERED: SIMPLE SYRUP FEEDTUBE PRN ×2 (14:20)
[2018-01-03] MEDS ORDERED: SODIUM BICARBONATE FEEDTUBE PRN (14:20)
--- NOTE | 2018-01-03 15:09 | Progress Note ---
Assessment and Plan Abnormal CT Chest with LLL Lung nodules Lung CA (pending immunostains) Severe Oropharyngeal Dysphagia Aspiration Pneumonia COPD H/O CVA Adult FTT - oncology evaluation ongoing - follow final immunostains for final classification of tumor - metastatic w/up ongoing - continue aspiration precautioons - s/p PEG - continue enteral nutrition as tolerated - AFB smear negative (doubt TB) - continue GI & VTE prophylaxis - prn H&H - continue aspiration precautions - continue other care per attending / other consultants ... 25' Subjective Date of service: 01/03/18 Principal diagnosis: Abnormal CT Chest; Lung Nodules; Oropharyngeal Dysphagia; S /P CVA Interval history: Patient is seen today for: Abnormal CT Chest; Lung Nodules; Oropharyngeal Dysphagia; S/P CVA Seen and examined at bedside; 24hour events reviewed; nursing and respiratory care staff consulted; no adverse overnight events reported to me; resting in bed; no N/V/F/C; denies hemoptysis Objective Vital Signs - 12hr 01/03/18 07:37 Temperature 99.1 F Pulse Rate 87 Respiratory 18 Rate Blood Pressure 109/83 O2 Sat by Pulse 96 Oximetry Constitutional: no acute distress, alert, other (Weak and debilitated.) Eyes: non-icteric ENT: oropharynx moist Neck: supple, no lymphadenopathy Effort: normal Ascultation: Bilateral: rhonchi Percussion: Bilateral: not dull Cardiovascular: regular rate and rhythm, other (No R/M) Gastrointestinal: normoactive bowel sounds, soft, non-tender Integumentary: normal Extremities: no cyanosis, no edema Neurologic: pupils equal and round, other (Left sided hemiplegia.) Psychiatric: mood appropriate, anxious CBC and BMP: 01/03/18 08:47 01/04/18 05:59 ABG, PT/INR, D-dimer: PT/INR, D-dimer PT 12.9 Sec. (12.2-14.9) 01/01/18 06:40 INR 0.93 (0.87-1.13) 01/01/18 06:40 Abnormal lab findings: Abnormal Labs 12/22/17 12/22/17 12/22/17 11:27 11:27 11:27 Hgb Hct RDW 15.5 H Plt Count 508 H Lymph % (Auto) [place] % (Auto) Lymph # [place] # Seg Neutrophils % 76.6 H APTT 39.1 H Sodium Potassium Chloride Carbon Dioxide BUN 5 L Creatinine 0.7 L Glucose ALT Total Protein 8.5 H Albumin 12/23/17 12/23/17 12/27/17 05:52 05:52 08:56 Hgb Hct RDW Plt Count 469 H Lymph % (Auto) 7.9 L [place] % (Auto) Lymph # 0.4 L [place] # Seg Neutrophils % 90.0 H APTT Sodium Potassium 3.5 L Chloride Carbon Dioxide BUN 6 L 7 L Creatinine 0.6 L 0.7 L Glucose 113 H ALT 5 L < 5 L Total Protein Albumin 3.5 L 3.4 L 12/28/17 12/28/17 12/29/17 13:31 13:31 07:04 Hgb Hct RDW Plt Count Lymph % (Auto) [place] % (Auto) Lymph # [place] # Seg Neutrophils % APTT Sodium 147 H Potassium Chloride Carbon Dioxide BUN Creatinine 0.6 L 0.6 L 0.5 L Glucose ALT Total Protein Albumin 12/30/17 12/30/17 12/31/17 08:30 08:30 07:12 Hgb Hct RDW 15.5 H Plt Count 462 H 452 H Lymph % (Auto) [place] % (Auto) 10.1 H Lymph # [place] # 0.9 H Seg Neutrophils % 72.0 H APTT Sodium Potassium Chloride Carbon Dioxide BUN Creatinine 0.6 L Glucose 103 H ALT Total Protein Albumin 12/31/17 01/01/18 01/01/18 07:12 06:40 06:40 Hgb Hct RDW Plt Count 465 H Lymph % (Auto) [place] % (Auto) 9.3 H Lymph # [place] # Seg Neutrophils % 72.5 H APTT Sodium Potassium Chloride 95.7 L Carbon Dioxide BUN Creatinine 0.6 L 0.6 L Glucose ALT Total Protein Albumin 01/02/18 01/02/18 01/03/18 10:34 10:34 08:47 Hgb 11.4 L Hct 33.9 L RDW 15.4 H 15.4 H Plt Count Lymph % (Auto) 12.0 L 9.5 L [place] % (Auto) 9.5 H 9.9 H Lymph # 1.1 L 0.9 L [place] # 0.9 H 1.0 H Seg Neutrophils % 76.9 H 79.6 H APTT Sodium 136 L Potassium Chloride 93.8 L Carbon Dioxide 21 L BUN Creatinine Glucose 125 H ALT Total Protein Albumin 01/03/18 08:47 Hgb Hct RDW Plt Count Lymph % (Auto) [place] % (Auto) Lymph # [place] # Seg Neutrophils % APTT Sodium 136 L Potassium Chloride 96.0 L Carbon Dioxide BUN Creatinine 0.6 L Glucose 105 H ALT Total Protein Albumin Allied health notes reviewed: nursing
[2018-01-04 00:23] VITALS: BP 92/57
[2018-01-04] MEDS: PRAVACHOL PO SCH (00:45)
--- NOTE | 2018-01-04 02:26 | Consultation ---
CONSULTING PHYSICIAN: Dr. Ricketts. REASON FOR CONSULTATION: Pulmonary nodules. CHIEF COMPLAINT AND HISTORY OF PRESENT ILLNESS: The patient is a 57-year-old -[place]ian male with past medical history as far as I can tell from the records is significant for a history of a prior cerebrovascular accident in 2009, was brought into the Emergency Room with a chief complaint of cough and congestion and inability to tolerate his oral meals. He had been seen a few days earlier in the ER, treated outpatient with amoxicillin. However, his symptoms did not improve. He also had productive cough that was followed by posttussive emesis. There was no report of any hematemesis. No report of hemoptysis. Apparently, he had a prior admission, lung nodules had been seen and he had not followed up with Pulmonary. He was evaluated in the Emergency Room and admitted with a diagnosis of hemoptysis, which he had denied to me, but also the pneumonia diagnosis. When I stopped by to see him, he was resting in bed. He was responsive, able to follow commands. He did have the focal deficit related to his prior cerebrovascular accident. He denied any fevers or chills. With regards to tobacco use/abuse history, he had a 10+ pack year tobacco smoking history. He denied any lumps, bumps, or swellings showing up on his body. Denied any new onset seizures. Denied any new onset focal weakness except those related to his cerebrovascular accident. This is as much of the history of presentation as I have. PAST MEDICAL HISTORY: Hypertension, cerebrovascular accident, history of urinary retention with an indwelling Andrew catheter. PAST SURGICAL HISTORY: Andrew catheter had been placed under surgery. MEDICATIONS: He was on at the time I stopped by to see him were reviewed. Pertinent medications included were Tylenol 650 mg p.o. q.4 hours p.r.n., DuoNeb treatments had just been ordered by myself to be nebulized t.i.d., and aspirin 81 mg p.o. daily, all p.o. meds will be via feeding tube. Morphine 2 mg IV q.4 hours p.r.n. moderate pain, Percocet one tablet p.o. q.6 hours p.r.n. moderate pain, and Pravachol 20 mg p.o. at bedtime. ALLERGIES: No known drug allergies. DIET: Thin gentleman, bordering on being cachectic. Denies significant weight loss or gain in the preceding few weeks to months. FAMILY AND SOCIAL HISTORY: I believe he lives with the family in the community. He has about a 10+ pack year remote tobacco smoking history. Denies current alcohol, tobacco, or illicit drug use or abuse. Family history is otherwise noncontributory. REVIEW OF SYSTEMS: Difficult to obtain secondary to the patient's medical and mental condition at the time of my evaluation. He denied any chest pains. He denied any palpitations. He denied any nausea. Since he has been in the hospital, no gross hematochezia or melena, no gross hematuria. No hematemesis, no seizure activity. Attempts to obtain a complete 14-system review of systems are as in the body of the history above, otherwise unobtainable. PHYSICAL EXAMINATION: VITAL SIGNS: At presentation, he was afebrile, temperature 98.5 degrees Fahrenheit, pulse of 79, respiratory rate of 20, blood pressure 116/81, and oxygen sats were 98%, inspired oxygen concentration was not recorded at the time I saw him, I believe he was on 2 liters nasal cannula. GENERAL: He is a middle-aged, but elderly looking -[place] male. Normocephalic, atraumatic with obvious contractures to the left side, lying in bed, in mild respiratory distress. HEAD, EYES, EARS, NOSE AND THROAT: Again there is no conjunctival erythema, no scleral icterus. Oropharynx is moist. No gross jugular venous distention, no palpable lymph nodes in the supraclavicular or submandibular lymph node chains. No thyromegaly. LUNGS: Auscultation of both lung tubbs is unremarkable. Lungs are clear bilaterally. Good bilateral air movement. HEART: Heart sounds 1 and 2 are heard. ____ rate and rhythm at the time of my evaluation. No rubs or murmurs. ABDOMEN: Soft, full, bowel sounds are positive, nontender, no palpable hepatosplenomegaly. EXTREMITIES: Without overt digital clubbing, no cyanosis, no pedal edema. Dorsalis pedis pulses are palpable bilaterally. NEUROLOGIC: Pupils are equal and round, about 4 mm, reactive to light. Extraocular muscle movements appeared intact. He has a left-sided focal deficit with mild contractures. His speech is a little bit garbled. SKIN: Skin is of poor turgor; however, no cellulitis, no rash. LABORATORY DATA: From my review are as follows: Admission white cell count 8300, hemoglobin 12.7, hematocrit 39.3, and platelet count 508. INR was 0.9. Serum sodium was 141, potassium 3.7, chloride 98, bicarbonate 26, BUN 5, creatinine 0.7, and glucose is 78. Liver function tests are within normal limits. No microbiology studies for my review. Radiographic studies have been reviewed. A CT angiogram was done. No gross filling defects consistent with pulmonary emboli. He does have, I believe left lower lobe posterior pleural ____ about 1.5 cm lesion. No significant mediastinal adenopathy. Lung windows show he actually has multiple lesions. He has 3 lesions in the left lower lobe, 2 of which are peripheral based. Then, he has some chronic scarring to the right lower lobe in particular. Perhaps some early paraseptal emphysematous changes. ASSESSMENT AND PLAN: 1. Abnormal CT scan with multiple left lower lobe nodules. 2. History of hemoptysis. 3. Cerebrovascular accident with left-sided residual deficits. 4. Oropharyngeal dysphagia. 5. Possible aspiration pneumonia. 6. Chronic obstructive pulmonary disease. 7. History of hypertension. PLAN: 1. We will probably proceed with a workup on these lesions. They are multiple, I do not have any old films to compare it against. He has a tobacco smoking history that is of significance. Because of the location, we will go for a CT-guided needle biopsy and see how he does if that is diagnosis is what I mean. Supplemental oxygen will be given as necessary to keep sats greater than or equal to about 90%. Aspiration precautions will be maintained. A short course of steroids will be given to improve his respiratory status. We will continue with short acting bronchodilators. We will follow him off antibiotics at this time. A swallow evaluation will be appropriate and he should be kept n.p.o. for now. Flu and pneumonia vaccination will be addressed per protocol. Thank you very much for the consult. We will follow along and make further recommendations as picture progresses/becomes clearer. JOB# [id number] HANNAH/JOSUE
[2018-01-04 06:56] LABS: BUN/Creatinine Ratio 32; Blood Urea Nitrogen 19 mg/dL (9-20); Hemolysis Index 0
[2018-01-04] MEDS: DUONEB *Not for PRN Use IH SCH ×2 (09:52→13:29)
[2018-01-04] MEDS: HALFPRIN EC PO SCH (10:04)
[2018-01-04] MEDS: SODIUM CHLORIDE FLUSH SYRINGE 10 ML IV SCH (10:04)
[2018-01-04] MEDS: DELTASONE PO SCH (10:04)
--- NOTE | 2018-01-04 10:59 | Discharge Summary ---
Providers - Providers Date of Admission: 12/22/17 20:44 Date of discharge: 01/04/18 Attending physician: JADEN GATES 12/22/17 20:44 Consult to Physician [CONS] Routine Comment: Consulting Provider: GARLAND RESENDIZ Physician Instructions: Reason For Exam: pulm nodules 12/23/17 03:59 Consult to Wound/ET Nurse [CONS] Routine Reason For Exam: wound eval 12/23/17 12:57 Consult to Physician [CONS] Routine Comment: Consulting Provider: ORALIA LEWIS Physician Instructions: Reason For Exam: intractable nause and vomiting 12/24/17 11:19 Speech Therapy Evaluation and Treat [CONS] Routine Reason For Exam: coughing, vomiting with coughing, hx of CVA 10 yea 12/25/17 13:47 Speech Therapy Evaluation and Treat [CONS] Urgent Reason For Exam: difficult swallowing 12/26/17 10:44 Consult to Dietitian/Nutrition [CONS] Routine Physician Instructions: Reason For Exam: Reason for Consult: Write/Manage TPN/PPN 12/31/17 10:13 Consult to Physician [CONS] Routine Comment: Consulting Provider: ERIN MORENO Physician Instructions: Reason For Exam: lung bx pos squamous cell ca 12/31/17 12:03 Consult to Case Management [CONS] Routine Services Needed at Discharge: Other Notified:: Lucy Was contact made?: Yes If yes, spoke with:: Lucy Time called:: 12:05 Comment:: Hospice eval 01/01/18 12:50 Consult to Dietitian/Nutrition [CONS] Routine Physician Instructions: Reason For Exam: Reason for Consult: Write/Manage Tube Feeding 01/02/18 08:48 Physical Therapy Evaluation and Treat [CONS] Routine Comment: Reason For Exam: left sided weakness Primary care physician: CARMENCITA WILSON Hospitalization Condition: Fair Pertinent studies: CT scan chest pulmonary nodules left lower lobe #2 hepatobiliary scan unremarkable with 3 MRI of the brain showed right frontal paraventricular disease and subacute to chronic hemorrhage and a prior infarct. For lung biopsy left lower lobe pleural-based effusion pleural-based mass pathology of the left biopsy shows adenocarcinoma the lung Disposition: DC/TX-03 SNF [facility] - Discharge Diagnoses (1) Lung cancer Status: Acute Comment: Patient with adenocarcinoma of the lung with metastasis. Patient poor functional status and is not a candidate for chemotherapy or surgery. Patient has PEG tube don't failure to thrive, history of CVA COPD and hypertension. It has been recommended the patient receive hospice with transfer to the shelter. Patient has extremely poor prognosis. (2) Dysphagia Status: Acute Comment: Severe oral dysphagia. Alternative means for feeding has been accomplished. Overall prognosis remains extremely poor. (3) Pulmonary nodules Status: Acute Comment: [place] nodules status post biopsy found to be adenocarcinoma. (4) Unable to eat Status: Acute (5) Pneumonia Status: Acute Comment: Current pneumonia consistent with adenocarcinoma. Stable now but will return. (6) Hypertension Status: Acute Core Measure Documentation - Palliative Care Palliative Care/ Comfort Measures: Hospice Care - Core Measures Any of the following diagnoses?: none Exam - Constitutional Vitals: Temp Pulse Resp BP Pulse Ox 99.0 F 99 H 18 92/57 97 01/03/18 23:39 01/03/18 23:39 01/03/18 23:39 01/03/18 23:39 01/03/18 23:39 General appearance: Present: mild distress, cachectic, other (week generalized weakness and poor wasting scaphoid abdomen increased bony prominences) - EENT Eyes: Present: PERRL, EOM intact ENT: hearing intact, clear oral mucosa, poor dentition, ulcerations, no thrush, no edentulous - Neck Neck: Present: supple, normal ROM - Respiratory Respiratory: bilateral: CTA (poor inspiratory effort), diminished - Cardiovascular Rhythm: regular - Extremities Extremities: no ischemia, pulses intact, pulses symmetrical, No edema, normal temperature, normal color Peripheral Pulses: within normal limits - Abdominal General gastrointestinal: Present: soft, hypoactive bowel sounds - Musculoskeletal Musculoskeletal: strength equal bilaterally, generalized weakness - Psychiatric Psychiatric: other (flat affect intact judgment able to communicate and understands process.) - Neurologic Neurologic: focal deficits Plan Activity: up only with assistance Diet: per dietitian instruction Special Instructions: home hospice Additional Instructions: Pt to recieve hospice services at the SNF Follow up with: CARMENCITA WILSON MD [Primary Care Provider] - 3-5 Days Prescriptions: oxyCODONE /ACETAMINOPHEN [Percocet 5/325 mg] 1 tab PO Q6H PRN #90 tablet PRN Reason: Pain, Moderate (4-6) predniSONE [Deltasone] 20 mg PO QDAY #30 tablet
[2018-01-04] MEDS: cefTRIAXone 1 GM in NACL 0.9% 20 ML IV SCH (11:59)
--- NOTE | 2018-01-04 13:43 | Progress Note ---
Assessment and Plan Abnormal CT Chest with LLL Lung nodules Lung CA (pending immunostains) Severe Oropharyngeal Dysphagia Aspiration Pneumonia COPD H/O CVA Adult FTT - follow final immunostains for final classification of tumor - tentatively for hospice care after detailed oncology evaluation - continue aspiration precautions - s/p PEG - continue enteral nutrition as tolerated - AFB smear negative (doubt TB) - continue GI & VTE prophylaxis - prn H&H - continue aspiration precautions - continue other care per attending / other consultants - ok to discharge to hospice care pulmonary-knight ... 25' Subjective Date of service: 01/04/18 Principal diagnosis: Abnormal CT Chest; Lung Nodules; Oropharyngeal Dysphagia; S /P CVA Interval history: Patient is seen today for: Abnormal CT Chest; Lung Nodules; Oropharyngeal Dysphagia; S/P CVA Seen and examined at bedside; 24hour events reviewed; nursing and respiratory care staff consulted; no adverse overnight events reported to me; resting in bed; no N/V/F/C; denies hemoptysis; understands hospice care recommendations Objective Vital Signs - 12hr 01/04/18 01/04/18 01/04/18 09:52 10:02 12:53 Pulse Rate 96 H Pulse Rate [ 69 72 Anterior Bilateral Throughout] Respiratory 20 20 Rate [Anterior Bilateral Throughout] O2 Sat by Pulse 98 Oximetry Constitutional: no acute distress, alert, other (Weak and debilitated.) Eyes: non-icteric ENT: oropharynx moist Neck: supple, no lymphadenopathy Effort: normal Ascultation: Bilateral: rhonchi Percussion: Bilateral: not dull Cardiovascular: regular rate and rhythm, other (No R/M) Gastrointestinal: normoactive bowel sounds, soft, non-tender Integumentary: normal Extremities: no cyanosis, no edema Neurologic: pupils equal and round, other (Left sided hemiplegia.) Psychiatric: mood appropriate, anxious CBC and BMP: 01/03/18 08:47 01/04/18 05:59 ABG, PT/INR, D-dimer: PT/INR, D-dimer PT 12.9 Sec. (12.2-14.9) 01/01/18 06:40 INR 0.93 (0.87-1.13) 01/01/18 06:40 Abnormal lab findings: Abnormal Labs 12/22/17 12/22/17 12/22/17 11:27 11:27 11:27 Hgb Hct RDW 15.5 H Plt Count 508 H Lymph % (Auto) [place] % (Auto) Lymph # [place] # Seg Neutrophils % 76.6 H APTT 39.1 H Sodium Potassium Chloride Carbon Dioxide BUN 5 L Creatinine 0.7 L Glucose ALT Total Protein 8.5 H Albumin 12/23/17 12/23/17 12/27/17 05:52 05:52 08:56 Hgb Hct RDW Plt Count 469 H Lymph % (Auto) 7.9 L [place] % (Auto) Lymph # 0.4 L [place] # Seg Neutrophils % 90.0 H APTT Sodium Potassium 3.5 L Chloride Carbon Dioxide BUN 6 L 7 L Creatinine 0.6 L 0.7 L Glucose 113 H ALT 5 L < 5 L Total Protein Albumin 3.5 L 3.4 L 12/28/17 12/28/17 12/29/17 13:31 13:31 07:04 Hgb Hct RDW Plt Count Lymph % (Auto) [place] % (Auto) Lymph # [place] # Seg Neutrophils % APTT Sodium 147 H Potassium Chloride Carbon Dioxide BUN Creatinine 0.6 L 0.6 L 0.5 L Glucose ALT Total Protein Albumin 12/30/17 12/30/17 12/31/17 08:30 08:30 07:12 Hgb Hct RDW 15.5 H Plt Count 462 H 452 H Lymph % (Auto) [place] % (Auto) 10.1 H Lymph # [place] # 0.9 H Seg Neutrophils % 72.0 H APTT Sodium Potassium Chloride Carbon Dioxide BUN Creatinine 0.6 L Glucose 103 H ALT Total Protein Albumin 12/31/17 01/01/18 01/01/18 07:12 06:40 06:40 Hgb Hct RDW Plt Count 465 H Lymph % (Auto) [place] % (Auto) 9.3 H Lymph # [place] # Seg Neutrophils % 72.5 H APTT Sodium Potassium Chloride 95.7 L Carbon Dioxide BUN Creatinine 0.6 L 0.6 L Glucose ALT Total Protein Albumin 01/02/18 01/02/18 01/03/18 10:34 10:34 08:47 Hgb 11.4 L Hct 33.9 L RDW 15.4 H 15.4 H Plt Count Lymph % (Auto) 12.0 L 9.5 L [place] % (Auto) 9.5 H 9.9 H Lymph # 1.1 L 0.9 L [place] # 0.9 H 1.0 H Seg Neutrophils % 76.9 H 79.6 H APTT Sodium 136 L Potassium Chloride 93.8 L Carbon Dioxide 21 L BUN Creatinine Glucose 125 H ALT Total Protein Albumin 01/03/18 01/04/18 08:47 05:59 Hgb Hct RDW Plt Count Lymph % (Auto) [place] % (Auto) Lymph # [place] # Seg Neutrophils % APTT Sodium 136 L 136 L Potassium Chloride 96.0 L 96.3 L Carbon Dioxide BUN Creatinine 0.6 L 0.6 L Glucose 105 H 124 H ALT Total Protein Albumin Allied health notes reviewed: nursing
== END 2018-01-04 13:31 | DRG 180 ==
LOC: ED 09:56 → 3A 20:44
PROVIDERS: ADMIT Internal Medicine; ATTEND Internal Medicine
PROC: 05HQ33Z Insertion of Infusion Device into Left External Jugular Vein, Percutaneous Approach (ICD-10-PCS; principal; 2017-12-22)
PROC: 0BBL3ZX Excision of Left Lung, Percutaneous Approach, Diagnostic (ICD-10-PCS; 2017-12-29)
PROC: 0DH63UZ Insertion of Feeding Device into Stomach, Percutaneous Approach (ICD-10-PCS; 2018-01-01)
DX: C34.90 Malignant neoplasm of unspecified part of unspecified bronchus or lung (principal); J69.0 Pneumonitis due to inhalation of food and vomit; R04.2 Hemoptysis; J44.0 Chronic obstructive pulmonary disease with (acute) lower respiratory infection; I69.351 Hemiplegia and hemiparesis following cerebral infarction affecting right dominant side; R13.12 Dysphagia, oropharyngeal phase; R91.1 Solitary pulmonary nodule; N18.9 Chronic kidney disease, unspecified; I12.9 Hypertensive chronic kidney disease with stage 1 through stage 4 chronic kidney disease, or unspecified chronic kidney disease; E78.5 Hyperlipidemia, unspecified; D64.9 Anemia, unspecified; K80.20 Calculus of gallbladder without cholecystitis without obstruction; Z87.891 Personal history of nicotine dependence; Z87.01 Personal history of pneumonia (recurrent); Z79.82 Long term (current) use of aspirin; Z79.899 Other long term (current) drug therapy
CPT/HCPCS: 36415; 70551; 71045; 71046; 71275; 74018; 74230; 77012; 78226; 80048; 80053; 82232; 82962; 83036; 83615; 83690; 83735; 84100; 84154; 85014; 85018; 85025; 85610; 85652; 85730; 86140; 86850; 86900; 86901; 88173; 88305; 88333; 88341; 88342; 93005; 93010; 94640; 99285; A9270-GY; A9537; J0696; J1644; J1956; J2250; J2405; J2704; J2920; J3010; J7030; J7042; J7512; Q0162; Q9967